=== PATIENT | male | born 1970 | race Caucasian/White ===

== ENCOUNTER 2018-08-20 11:35 | Inpatient (IN) | payer MEDICARE, MEDICAID ==
--- NOTE | 2018-08-20 11:59 | ED Physician Chart ---
ED Chief Complaint/HPI - Patient Information Date Seen:: 08/20/18 Time Seen:: 11:49 Chief Complaint:: anemia History of Present Illness:: this is a 48 yo renal failure, diabetes, with localized weakness sent to this er for an evaluation and treatment after the lab at the senior care reported anemia. Allergies:: Allergies Allergy/AdvReac Type Severity Reaction Status Date / Time haloperidol [From Haldol] Allergy Verified 08/20/18 11:44 lorazepam [From Ativan] Allergy Verified 08/20/18 11:44 Vitals:: Vital Signs - 8 hr 08/20/18 11:45 Temp 98.1 F HR 70 RR 16 BP 136/74 O2 Sat % 94 Historian:: Medical Records Review:: Nurse's Note Reviewed, Transfer documents Reviewed ED Review of Systems - Review of Systems General/Constitutional: No fever, No chills, No weight loss, Weakness, No diaphoresis, No edema, No loss of appetite Skin: No skin lesions, No rash, No bruising Head: No headache, No light-headedness Eyes: No loss of vision, No pain, No diplopia ENT: No earache, No nasal drainage, No sore throat, No tinnitus Neck: No neck pain, No swelling, No thyromegaly, No stiffness, No mass noted Cardio Vascular: No chest pain, No palpitations, No PND, No orthopnea, No edema Pulmonary: SOB, No cough, No sputum, No wheezing GI: Nausea, Vomiting, No diarrhea, No pain, No melena, No hematochezia, No constipation, No hematemesis G/U: No dysuria, No frequency, No hematuria Musculoskeletal: No bone or joint pain, No back pain, No muscle pain Endocrine: No polyuria, No polydipsia Psychiatric: Prior psych history, Depression, No anxiety, No suicidal ideation Hematopoietic: No bruising, No lymphadenopathy Allergic/Immuno: No urticaria, No angioedema Neurological: No syncope, No focal symptoms, No weakness, No paresthesia, No headache, No seizure, No dizziness, No confusion, No vertigo ED Past Medical History - Past Medical History Obtainable: Yes Past Medical History: HTN, DM, CHF, Asthma/COPD, CVA/TIA Family History: None Social History: Smoker, No Alcohol, No Drug Use, Care Facility Surgical History: other (trach placement, placement of access line for dialysis , brain injury surgery. ) Family Medical History - Family Member Mother History Unknown: Yes ED Physical Exam - Physical Examination General/Constitutional: Awake, Well-developed, well-nourished, Alert, No distress, GCS 15, Non-toxic appearing, Ambulatory Head: Atraumatic Other Head comments:: old well healed scars of the head Eyes: Lids, conjuctiva normal, PERRL, EOMI Skin: Nl inspection, No rash, No skin lesions, No ecchymosis, Well hydrated, No lymphadenopathy ENMT: External ears, nose nl, Nasal exam nl, Lips, teeth, gums nl Neck: Nontender, Full ROM w/o pain, No JVD, No nuchal rigidity, No bruit, No mass, No stridor Other Neck comments:: well healed trach placement site Respiratory: Nl effort/Exclusion, Clear to Auscultation, No Wheeze/Rhonchi/Rales Cardio Vascular: RRR, No murmur, gallop, rubs, NL S1 S2 GI: No tenderness/rebounding/guarding, No organomegaly, No hernia, Normal BS's, Nondistended, No mass/bruits, No McBurney tenderness : No CVA tenderness Extremities: No tenderness or effusion, Full ROM, normal strength in all extremities, No edema, Normal digits & nails Other Extremities comments:: there is muscle wasting in all four extremities Neuro/Psych: Alert/oriented, DTR's symmetric, Normal sensory exam, Normal motor strength, Judgement/insight normal, Mood normal, Normal gait, No focal deficits Other Neuro/Psych comments:: partial paralysis of the left upper extremities. Misc: Normal back, No paraspinal tenderness ED Labs/Radiology/EKG Results - Lab Results Results: Abnormal Lab Results 08/20/18 08/20/18 08/20/18 12:00 12:00 12:00 WBC 5.2 RBC 2.35 L Hgb 8.3 L Hct 24.3 L MCV 103.2 H MCH 35.5 H MCHC Differential 34.4 RDW 13.4 Plt Count 300 MPV 7.6 Neutrophils % 72.1 Lymphocytes % 16.3 L Monocytes % 8.1 Eosinophils % 2.1 Basophils % 1.4 PT 10.7 INR 1.03 PTT (Actin FS) 30.2 Sodium Potassium Chloride Carbon Dioxide Anion Gap BUN Creatinine Est GFR ( Amer) Est GFR (Non-Af Amer) BUN/Creatinine Ratio Glucose Whole Bld Lactic Acid Calcium Magnesium 2.4 Total Bilirubin AST ALT Alkaline Phosphatase Ammonia Troponin I B-Natriuretic Peptide Total Protein Albumin Globulin Albumin/Globulin Ratio Triglycerides 96 Cholesterol 115 LDL Cholesterol Direct 53 L HDL Cholesterol 44 08/20/18 08/20/18 08/20/18 12:00 12:00 12:00 WBC RBC Hgb Hct MCV MCH MCHC Differential RDW Plt Count MPV Neutrophils % Lymphocytes % Monocytes % Eosinophils % Basophils % PT INR PTT (Actin FS) Sodium 136 Potassium 3.9 Chloride 93 L Carbon Dioxide 33.2 H Anion Gap 13.7 BUN 38 H Creatinine 4.7 H* Est GFR ( Amer) 17.1 Est GFR (Non-Af Amer) 14.2 BUN/Creatinine Ratio 8.1 Glucose 113 H Whole Bld Lactic Acid Calcium 9.6 Magnesium Total Bilirubin 0.4 AST 10 L ALT 6 L Alkaline Phosphatase 79 Ammonia Troponin I 0.01 B-Natriuretic Peptide > 5000.0 H Total Protein 7.8 Albumin 3.3 L Globulin 4.5 Albumin/Globulin Ratio 0.7 L Triglycerides Cholesterol LDL Cholesterol Direct HDL Cholesterol 08/20/18 08/20/18 12:00 12:38 WBC RBC Hgb Hct MCV MCH MCHC Differential RDW Plt Count MPV Neutrophils % Lymphocytes % Monocytes % Eosinophils % Basophils % PT INR PTT (Actin FS) Sodium Potassium Chloride Carbon Dioxide Anion Gap BUN Creatinine Est GFR ( Amer) Est GFR (Non-Af Amer) BUN/Creatinine Ratio Glucose Whole Bld Lactic Acid 1.11 Calcium Magnesium Total Bilirubin AST ALT Alkaline Phosphatase Ammonia 58 H Troponin I B-Natriuretic Peptide Total Protein Albumin Globulin Albumin/Globulin Ratio Triglycerides Cholesterol LDL Cholesterol Direct HDL Cholesterol - Radiology Results Results: cxr = bilateral pleural effusions cardiomegaly - EKG Interpretations EKG Time:: 11:48 Rate & Rhythm: rate = 70, sinus [place]: axis = right ED Assessment - Assessment General Assessment: bilateral pleural effusion, anemia, renal failure ED Septic Shock - . Is Septic Shock (SBP<90, OR Lactate>4 mmol\L) present?: No - <6hrs of presentation: Vital Signs: Vital Signs - 8 hr 08/20/18 11:45 Temp 98.1 F HR 70 RR 16 BP 136/74 O2 Sat % 94 ED Reassessment (Disposition) - Diagnosis Diagnosis:: acute congestive heart failure renal failure pyschosis diabetes mellitus - Patient Disposition Discharge/Transfer:: Acute Care w/in this hosp Admitted to:: Telemetry Admitting Medical Physician:: Rosalio Jama Condition at Disposition:: Stable
[2018-08-20 12:30] LABS: INR 1.03 (0.5-1.4); PROTHROMBIN TIME (TEST) 10.7 SECONDS (9.5-11.5)
[2018-08-20 12:31] LABS: MAGNESIUM 2.4 mg/dL (1.9-2.7)
[2018-08-20 12:33] LABS: ALB/GLOB RATIO 0.7 (1.0-1.8); ALBUMIN 3.3 gm/dL (4.2-5.5); ANION GAP 13.7 (7.0-16.0); BILIRUBIN,TOTAL 0.4 mg/dL (0.3-1.0); CALCIUM SERUM 9.6 mg/dL (8.6-10.3); CARBON DIOXIDE 33.2 mEq/L (21.0-31.0); GFR AFRICAN-AMERICAN 17.1 ml/min (>90); GFR NON AFRICAN-AMERICAN 14.2 ml/min; POTASSIUM SERUM 3.9 mEq/L (3.5-5.1); TOTAL PROTEIN,SERUM 7.8 gm/dL (6.0-8.3)
[2018-08-20 12:35] LABS: BASOPHILE ABSOLUTE 0.1 Th/cumm (0-0.2); EOSINOPHILE ABSOLUTE 0.1 Th/cmm (0.1-0.4); LYMPHOCYTE ABSOLUTE 0.8 Th/cmm (1.5-3.0)
[2018-08-20 12:42] LABS: % BASOPHILS 1.4 % (0.0-2.0); % EOSINOPHILS 2.1 % (0.0-5.0); % LYMPHOCYTES 16.3 % (20.0-50.0); % MONOCYTES 8.1 % (2.0-10.0); % NEUTROPHILS 72.1 % (40.0-80.0); HEMATOCRIT 24.3 % (41.0-60); HEMOGLOBIN 8.3 gm/dL (12-16); MEAN CELL VOLUME 103.2 fl (80-99); MEAN CORPUSCULAR HEMOGLOBIN 35.5 pg (26.0-30.0); MEAN CORPUSCULAR HGB CONC 34.4 pg (28.0-36.0); MEAN PLATELET VOLUME 7.6 fl; MONOCYTE ABSOLUTE 0.4 Th/cmm (0.3-1.0); NEUTROPHILE ABSOLUTE 3.8 Th/cmm (1.8-8.0); PLATELET COUNT 300 Th/cmm (150-400); RED BLOOD COUNT 2.35 Mil/cmm (4.30-5.70); RED CELL DISTRIBUTION WIDTH 13.4 % (11.5-20.0); WHITE BLOOD COUNT 5.2 Th/cmm (4.8-10.8)
[2018-08-20 12:50] LABS: CREATININE - SERUM 4.7 mg/dL (0.7-1.3)
--- NOTE | 2018-08-20 13:02 | Diagnostic Imaging Report ---
Portable chest x-ray HISTORY: Shortness of breath The heart is enlarged. There is evidence of bilateral pleural effusions (left greater than right). There does appear to be degree upon a vascular redistribution consistent with a degree of congestive heart failure. IMPRESSION: 1. Cardiomegaly with bilateral pleural effusions and findings suggesting a degree of congestive heart failure. Clinical correlation is needed.
--- NOTE | 2018-08-20 16:19 | General Progress Note ---
Subjective - Review of Systems Service Date: 08/20/18 Subjective: Patient altered level Patient complaining of shortness of breath Objective - Results Result Diagrams: 08/20/18 12:00 08/20/18 12:00 Recent Labs: Laboratory Last Values WBC 5.2 Th/cmm (4.8-10.8) 08/20/18 12:00 RBC 2.35 Mil/cmm (4.30-5.70) L 08/20/18 12:00 Hgb 8.3 gm/dL (12-16) L 08/20/18 12:00 Hct 24.3 % (41.0-60) L 08/20/18 12:00 MCV 103.2 fl (80-99) H 08/20/18 12:00 MCH 35.5 pg (26.0-30.0) H 08/20/18 12:00 MCHC Differential 34.4 pg (28.0-36.0) 08/20/18 12:00 RDW 13.4 % (11.5-20.0) 08/20/18 12:00 Plt Count 300 Th/cmm (150-400) 08/20/18 12:00 MPV 7.6 fl 08/20/18 12:00 Neutrophils % 72.1 % (40.0-80.0) 08/20/18 12:00 Lymphocytes % 16.3 % (20.0-50.0) L 08/20/18 12:00 Monocytes % 8.1 % (2.0-10.0) 08/20/18 12:00 Eosinophils % 2.1 % (0.0-5.0) 08/20/18 12:00 Basophils % 1.4 % (0.0-2.0) 08/20/18 12:00 PT 10.7 SECONDS (9.5-11.5) 08/20/18 12:00 INR 1.03 (0.5-1.4) 08/20/18 12:00 PTT (Actin FS) 30.2 SECONDS (26.0-38.0) 08/20/18 12:00 Sodium 136 mEq/L (136-145) 08/20/18 12:00 Potassium 3.9 mEq/L (3.5-5.1) 08/20/18 12:00 Chloride 93 mEq/L (98-107) L 08/20/18 12:00 Carbon Dioxide 33.2 mEq/L (21.0-31.0) H 08/20/18 12:00 Anion Gap 13.7 (7.0-16.0) 08/20/18 12:00 BUN 38 mg/dL (7-25) H 08/20/18 12:00 Creatinine 4.7 mg/dL (0.7-1.3) H* 08/20/18 12:00 Est GFR ( Amer) 17.1 ml/min (>90) 08/20/18 12:00 Est GFR (Non-Af Amer) 14.2 ml/min 08/20/18 12:00 BUN/Creatinine Ratio 8.1 08/20/18 12:00 Glucose 113 mg/dL (70-105) H 08/20/18 12:00 Whole Bld Lactic Acid 1.11 mmol/L (0.60-1.99) 08/20/18 12:38 Calcium 9.6 mg/dL (8.6-10.3) 08/20/18 12:00 Magnesium 2.4 mg/dL (1.9-2.7) 08/20/18 12:00 Total Bilirubin 0.4 mg/dL (0.3-1.0) 08/20/18 12:00 AST 10 U/L (13-39) L 08/20/18 12:00 ALT 6 U/L (7-52) L 08/20/18 12:00 Alkaline Phosphatase 79 U/L (34-104) 08/20/18 12:00 Ammonia 58 umol/L (16-53) H 08/20/18 12:00 Troponin I 0.01 ng/mL (0.01-0.05) 08/20/18 12:00 B-Natriuretic Peptide > 5000.0 pg/mL (5.0-100.0) H 08/20/18 12:00 Total Protein 7.8 gm/dL (6.0-8.3) 08/20/18 12:00 Albumin 3.3 gm/dL (4.2-5.5) L 08/20/18 12:00 Globulin 4.5 gm/dL 08/20/18 12:00 Albumin/Globulin Ratio 0.7 (1.0-1.8) L 08/20/18 12:00 Triglycerides 96 mg/dL (<150) 08/20/18 12:00 Cholesterol 115 mg/dL (<200) 08/20/18 12:00 LDL Cholesterol Direct 53 mg/dL (75-193) L 08/20/18 12:00 HDL Cholesterol 44 mg/dL (23-92) 08/20/18 12:00 Amylase 65 U/L (29-103) 08/20/18 12:00 Lipase 33 U/L (11-82) 08/20/18 12:00 TSH 6.33 uIU/ml (0.34-5.60) H 08/20/18 12:00 - Physical Exam Vitals and I&O: Vital Signs Temp 97.8 F 08/20/18 13:43 Pulse 72 08/20/18 13:43 Resp 23 08/20/18 13:43 BP 148/92 08/20/18 13:43 Pulse Ox 100 08/20/18 13:43 Intake & Output 08/19/18 08/20/18 08/20/18 18:59 06:59 18:59 Intake Total 0 Output Total 0 Balance 0 Weight (lbs) 65.771 kg Intake: Oral 0 Output: Urine 0 Other: Weight Source Patient stated General: Cooperative, No acute distress HEENT: Mucous membr. moist/pink Neck: Supple, JVD (10 cm above sternal angle), +2 carotid pulse wo bruit Cardiovascular: Regular rate, Normal S1, Normal S2, Systolic murmurs, Other (S3) Lungs: Other (bilateral wheezing and rales) Abdomen: Bowel sounds, Soft, Other Extremities: Edema (no organomegaly) Neurological: Strength at 5/5 X4 ext, Cranial nerves 3-12 NL, Reflexes 2+ Assessment/Plan - Problem List Patient Problems: All Active Problems ABNORMAL LABORATORY RESULTS; HB 7.7 (Acute) - Plan Plan: Congestive heart failure diastolic dysfunction and acute I'm deficiency anemia Diabetes mellitus type 2 Diabetic [facility] end-stage renal disease on dialysis BPH Hypertension Hyperlipidemia Schizophrenia Bipolar Anxiety COPD Seizure disorder Plan patient to take dialysis with ultrafiltration with dialysis
[2018-08-20 18:19] VITALS: BP 146/95
[2018-08-20] MEDS ORDERED: LABETALOL HCL 200 MG PO SCH (20:15)
[2018-08-20] MEDS ORDERED: DARBEPOETIN ALFA IN POLYSORBAT 25 MCG IJ SCH (20:15)
[2018-08-20] MEDS ORDERED: Non-Formulary Item 1 EA (Hydralazine Hcl [Hydralazine Hcl] 100 MG) PO SCH (21:00)
[2018-08-20] MEDS: Atorvastatin Calcium 10 MG TAB PO SCH (21:03)
[2018-08-20] MEDS ORDERED: Hydrocodone/APAP 5mg/325mg Tab PO PRN (23:55)
[2018-08-21] MEDS: Hydrocodone/APAP 5mg/325mg Tab PO PRN ×3 (00:29→20:33)
[2018-08-21 01:05] LABS: URINE SOURCE CLEAN C
[2018-08-21 01:06] LABS: URINE BILIRUBIN NEGATIVE (NEGATIVE); URINE BLOOD TRACE (NEGATIVE); URINE GLUCOSE (UA) 100 mg/dL (NEGATIVE); URINE KETONE NEGATIVE (NEGATIVE); URINE LEUKOCYTE ESTERASE MODERATE (NEGATIVE); URINE MICROSCOPIC INDICATED? YES; URINE NITRATE NEGATIVE (NEGATIVE); URINE PH 8.5 (4.6 - 8.0); URINE PROTEIN 100 mg/dL (NEGATIVE); URINE UROBILINOGEN 0.2 E.U./dL (0.2 - 1.0)
[2018-08-21 01:24] LABS: URINE CLARITY HAZY (CLEAR); URINE COLOR YELLOW
[2018-08-21 01:25] LABS: URINE RBC 0-2 /hpf (0-5)
[2018-08-21 01:26] LABS: URINE BACTERIA OCCASIONAL /hpf (NONE SEEN); URINE EPITHELIAL CELLS OCCASIONAL /lpf (FEW)
--- NOTE | 2018-08-21 07:08 | Consultation ---
DATE OF CONSULTATION: 08/20/[address] Jama. HISTORY AND PHYSICAL: This is a 48-year-old male patient who was brought to the hospital complaining of shortness of breath, altered level. In the Emergency Room, the patient was found to have anemia with hemoglobin 8.3 and BNP level over 5000. Hence, the patient is admitted. No history of PND. PAST MEDICAL HISTORY: Congestive heart failure, iron deficiency anemia, diabetes mellitus type 2, diabetic CKD stage 5, end-stage renal disease on dialysis, BPH, hypertension, hyperlipidemia, schizophrenia, bipolar, anxiety, COPD, seizure disorder, history of CVA with late effect. FAMILY HISTORY: Unremarkable. SOCIAL HISTORY: No history of smoking, alcohol abuse at the present time according to the patient. ALLERGIES: No known allergies. PHYSICAL EXAMINATION: VITAL SIGNS: Blood pressure 136/74, pulse 70, respirations 20. HEAD: Normocephalic. No lumps or bumps. EYES: Pupils equal, reactive to light. Fundi show AV nicking, sclerae white, conjunctivae pink. NECK: Carotid 2+. Normal upstroke. JVD 10 cm above the sternal angle. Thyroid not palpable. Lymph nodes not palpable. CHEST: Shows increased AP diameter. No kyphosis, scoliosis. LUNGS: Bilateral rales. Decreased breath sounds in both the bases. HEART: PMI sixth intercostal space with lateral to midclavicular line. S1, S2, S3, S4, soft systolic murmur. ABDOMEN: Soft. Liver and spleen not palpable. Hepatojugular reflux. Positive bowel sounds active. NEUROLOGIC: CVA with late effect. EXTREMITIES: Peripheral pulses feeble. Minimal pedal edema. CLINICAL IMPRESSION: Congestive heart failure, diastolic dysfunction, acute iron deficiency anemia secondary to chronic kidney disease stage 5, diabetes mellitus type 2, diabetic chronic kidney disease stage 5, end-stage renal disease on dialysis, benign prostatic hyperplasia, hypertension, hyperlipidemia, schizophrenia, bipolar, anxiety, chronic obstructive pulmonary disease, seizure disorder, CVA with late effect. PLAN: The patient to have dialysis with ultrafiltration. We will get echocardiogram and monitor the patient on telemetry bed. JOB# [id number]
[2018-08-21 08:07] LABS: IRON LC 40 ug/dL (38-169); TIBC (LC) 227 ug/dL (250-450); UIBC 187 ug/dL (111-343)
[2018-08-21 09:00] LABS: % BASOPHILS 1.4 % (0.0-2.0); % EOSINOPHILS 2.8 % (0.0-5.0); % LYMPHOCYTES 17.3 % (20.0-50.0); % MONOCYTES 8.4 % (2.0-10.0); % NEUTROPHILS 70.1 % (40.0-80.0); BASOPHILE ABSOLUTE 0.1 Th/cumm (0-0.2); EOSINOPHILE ABSOLUTE 0.2 Th/cmm (0.1-0.4); MEAN CELL VOLUME 103.6 fl (80-99); MEAN CORPUSCULAR HEMOGLOBIN 35.4 pg (26.0-30.0); MEAN CORPUSCULAR HGB CONC 34.1 pg (28.0-36.0); MEAN PLATELET VOLUME 7.1 fl; MONOCYTE ABSOLUTE 0.5 Th/cmm (0.3-1.0); NEUTROPHILE ABSOLUTE 3.7 Th/cmm (1.8-8.0); PLATELET COUNT 299 Th/cmm (150-400); RED BLOOD COUNT 2.21 Mil/cmm (4.30-5.70); RED CELL DISTRIBUTION WIDTH 13.5 % (11.5-20.0); WHITE BLOOD COUNT 5.5 Th/cmm (4.8-10.8)
[2018-08-21] MEDS ORDERED: NUT TX IMPAIRED RENAL FXN SOY PO SCH (09:00)
[2018-08-21] MEDS ORDERED: ZIPRASIDONE HCL 80 MG PO SCH (09:00)
[2018-08-21] MEDS ORDERED: Non-Formulary Item 1 EA (Thiamine Hcl [Thiamine Hcl] 100 MG) PO SCH (09:00)
[2018-08-21] MEDS ORDERED: NEPHROVITE PO SCH (09:00)
[2018-08-21 09:02] LABS: HEMATOCRIT 22.9 % (41.0-60); HEMOGLOBIN 7.8 gm/dL (12-16)
[2018-08-21 09:11] LABS: AMYLASE SERUM 137 U/L (29-103); LIPASE 45 U/L (11-82)
[2018-08-21 09:13] LABS: ALB/GLOB RATIO 0.7 (1.0-1.8); ALBUMIN 3.1 gm/dL (4.2-5.5); BILIRUBIN,TOTAL 0.4 mg/dL (0.3-1.0); CALCIUM SERUM 9.6 mg/dL (8.6-10.3); CARBON DIOXIDE 30.9 mEq/L (21.0-31.0); GFR AFRICAN-AMERICAN 13.4 ml/min (>90); GFR NON AFRICAN-AMERICAN 11.1 ml/min; POTASSIUM SERUM 3.9 mEq/L (3.5-5.1); TOTAL PROTEIN,SERUM 7.5 gm/dL (6.0-8.3)
[2018-08-21 09:15] LABS: CREATININE - SERUM 5.8 mg/dL (0.7-1.3)
[2018-08-21] MEDS: Nicotine 21 mg/24 hr Tdm TD SCH (10:00)
[2018-08-21] MEDS: Heparin Sodium 1,000 Units/mL Vial IVP ONE (10:06)
[2018-08-21] MEDS: Vitamin B Complex w/Vitamin C Tab PO SCH (10:08)
--- NOTE | 2018-08-21 10:45 | History & Physical ---
ADMIT DATE: 08/21/2018 CHIEF COMPLAINT: Shortness of breath and altered level of consciousness. HISTORY OF PRESENT ILLNESS: This is a 48-year-old patient who was admitted from a fdc facility, transferred to [facility] [place] due to shortness of breath and increased confusion. From Emergency Room tests were done and found that the patient had elevated BNP on which he missed some dialysis days and has some ongoing fluid overload, so the patient was subsequently admitted to telemetry unit. REVIEW OF SYSTEMS: GENERAL: This is a 48-year-old male who appears as stated. Positive weakness. No fever. HEAD: No headache. No dizziness. EYES: No eye pain, no blurring of vision. NECK: No neck pain or nuchal rigidity. CHEST: No chest pain or palpitation. PULMONARY: No coughing or shortness of breath. GASTROINTESTINAL: No abdominal pain, no constipation or diarrhea. MUSCULOSKELETAL: No joint pain. No muscle pain. SOCIAL HISTORY: The patient lived in a fdc facility prior to hospitalization. FAMILY HISTORY: Unremarkable. PAST SURGICAL HISTORY: Unremarkable. PAST MEDICAL HISTORY: Includes end-stage renal disease, hemodialysis dependent; hypertension, anemia, hyperlipidemia. PHYSICAL EXAMINATION: VITAL SIGNS: Temperature 97.5, heart rate 72, blood pressure 156/95, respirations 18, 95% on room air. GENERAL: This is a 48-year-old male who appears as stated in no acute distress. HEENT: Head is atraumatic, normocephalic. Eyes: Bilateral conjunctivae are clear. Bilateral pupils are equally round and reactive. NECK: Supple. No JVD. CARDIOVASCULAR: S1 and S2, without murmur. PULMONARY: Clear to auscultation. GASTROINTESTINAL: Soft and nontender without guarding. Positive bowel sounds. MUSCULOSKELETAL: No clubbing. No cyanosis noted. ASSESSMENT: 1. Congestive heart failure. 2. End-stage renal disease, hemodialysis dependent. 3. Hypertension. 4. Anemia. PLAN: We will admit the patient to telemetry unit. We will follow up with the certification technician and planer hand to monitor the patient's condition. We are also going to monitor the patient's electrolytes and the patient's intake and output. Treatment plans were discussed with the patient's nurse. Treatment plans were discussed with Dr. Jama. [facility]# [id number]
--- NOTE | 2018-08-21 14:55 | General Progress Note ---
Subjective - Review of Systems Service Date: 08/21/18 Subjective: Patient altered level Patient complaining of shortness of breath Objective - Results Result Diagrams: 08/21/18 08:51 08/21/18 08:51 Recent Labs: Laboratory Last Values WBC 5.5 Th/cmm (4.8-10.8) 08/21/18 08:51 RBC 2.21 Mil/cmm (4.30-5.70) L 08/21/18 08:51 Hgb 7.8 gm/dL (12-16) L* 08/21/18 08:51 Hct 22.9 % (41.0-60) L 08/21/18 08:51 MCV 103.6 fl (80-99) H 08/21/18 08:51 MCH 35.4 pg (26.0-30.0) H 08/21/18 08:51 MCHC Differential 34.1 pg (28.0-36.0) 08/21/18 08:51 RDW 13.5 % (11.5-20.0) 08/21/18 08:51 Plt Count 299 Th/cmm (150-400) 08/21/18 08:51 MPV 7.1 fl 08/21/18 08:51 Neutrophils % 70.1 % (40.0-80.0) 08/21/18 08:51 Lymphocytes % 17.3 % (20.0-50.0) L 08/21/18 08:51 Monocytes % 8.4 % (2.0-10.0) 08/21/18 08:51 Eosinophils % 2.8 % (0.0-5.0) 08/21/18 08:51 Basophils % 1.4 % (0.0-2.0) 08/21/18 08:51 PT 10.7 SECONDS (9.5-11.5) 08/20/18 12:00 INR 1.03 (0.5-1.4) 08/20/18 12:00 PTT (Actin FS) 30.2 SECONDS (26.0-38.0) 08/20/18 12:00 Sodium 138 mEq/L (136-145) 08/21/18 08:51 Potassium 3.9 mEq/L (3.5-5.1) 08/21/18 08:51 Chloride 96 mEq/L (98-107) L 08/21/18 08:51 Carbon Dioxide 30.9 mEq/L (21.0-31.0) 08/21/18 08:51 Anion Gap 15.0 (7.0-16.0) 08/21/18 08:51 BUN 46 mg/dL (7-25) H 08/21/18 08:51 Creatinine 5.8 mg/dL (0.7-1.3) H* 08/21/18 08:51 Est GFR ( Amer) 13.4 ml/min (>90) 08/21/18 08:51 Est GFR (Non-Af Amer) 11.1 ml/min 08/21/18 08:51 BUN/Creatinine Ratio 7.9 08/21/18 08:51 Glucose 80 mg/dL (70-105) 08/21/18 08:51 Whole Bld Lactic Acid 1.11 mmol/L (0.60-1.99) 08/20/18 12:38 Calcium 9.6 mg/dL (8.6-10.3) 08/21/18 08:51 Magnesium 2.4 mg/dL (1.9-2.7) 08/20/18 12:00 Iron 40 ug/dL (38-169) 08/20/18 12:00 TIBC 227 ug/dL (250-450) L 08/20/18 12:00 Iron Saturation 18 % (15-55) 08/20/18 12:00 Unsaturated IBC 187 ug/dL (111-343) 08/20/18 12:00 Total Bilirubin 0.4 mg/dL (0.3-1.0) 08/21/18 08:51 AST 9 U/L (13-39) L 08/21/18 08:51 ALT 6 U/L (7-52) L 08/21/18 08:51 Alkaline Phosphatase 73 U/L (34-104) 08/21/18 08:51 Ammonia 58 umol/L (16-53) H 08/20/18 12:00 Troponin I 0.01 ng/mL (0.01-0.05) 08/20/18 12:00 B-Natriuretic Peptide > 5000.0 pg/mL (5.0-100.0) H 08/21/18 08:51 Total Protein 7.5 gm/dL (6.0-8.3) 08/21/18 08:51 Albumin 3.1 gm/dL (4.2-5.5) L 08/21/18 08:51 Globulin 4.4 gm/dL 08/21/18 08:51 Albumin/Globulin Ratio 0.7 (1.0-1.8) L 08/21/18 08:51 Triglycerides 96 mg/dL (<150) 08/20/18 12:00 Cholesterol 115 mg/dL (<200) 08/20/18 12:00 LDL Cholesterol Direct 53 mg/dL (75-193) L 08/20/18 12:00 HDL Cholesterol 44 mg/dL (23-92) 08/20/18 12:00 Amylase 137 U/L (29-103) H 08/21/18 08:51 Lipase 45 U/L (11-82) 08/21/18 08:51 TSH 2.89 uIU/ml (0.34-5.60) 08/21/18 08:51 Urine Source CLEAN C 08/21/18 00:55 Urine Color YELLOW 08/21/18 00:55 Urine Clarity HAZY (CLEAR) 08/21/18 00:55 Urine pH 8.5 (4.6 - 8.0) 08/21/18 00:55 Ur Specific [place] 1.010 (1.005-1.030) 08/21/18 00:55 Urine Protein 100 mg/dL (NEGATIVE) H 08/21/18 00:55 Urine Glucose (UA) 100 mg/dL (NEGATIVE) H 08/21/18 00:55 Urine Ketones NEGATIVE mg/dL (NEGATIVE) 08/21/18 00:55 Urine Blood TRACE (NEGATIVE) 08/21/18 00:55 Urine Nitrate NEGATIVE (NEGATIVE) 08/21/18 00:55 Urine Bilirubin NEGATIVE (NEGATIVE) 08/21/18 00:55 Urine Urobilinogen 0.2 E.U./dL (0.2 - 1.0) 08/21/18 00:55 Ur Leukocyte Esterase MODERATE (NEGATIVE) H 08/21/18 00:55 Urine RBC 0-2 /hpf (0-5) H 08/21/18 00:55 Urine WBC 6-10 /hpf (0-5) 08/21/18 00:55 Ur Epithelial Cells OCCASIONAL /lpf (FEW) 08/21/18 00:55 Urine Bacteria OCCASIONAL /hpf (NONE SEEN) 08/21/18 00:55 - Physical Exam Vitals and I&O: Vital Signs Temp 97.7 F 08/21/18 11:52 Pulse 74 08/21/18 11:52 Resp 18 08/21/18 11:52 BP 177/112 08/21/18 11:52 Pulse Ox 100 08/21/18 11:52 Intake & Output 08/20/18 08/21/18 08/21/18 18:59 06:59 18:59 Intake Total 200 240 Output Total 0 200 Balance 200 40 Weight (lbs) 61.507 kg 61.235 kg Intake: Oral 200 240 Output: Urine 0 200 Other: # Voids 0 # Bowel Movements 0 Weight Source Bedscale Bedscale Active Medications: Current Medications Acetaminophen/Hydrocodone Bitart ([place] 5mg/325mg) 1 tab PO Q6H PRN PRN Reason: Pain (Moderate) level 4-6 Stop: 10/19/18 20:08 Last Admin: 08/21/18 00:29 Dose: 1 tab Aspirin (Ecotrin) 81 mg PO DAILY [facility] Stop: 10/20/18 08:59 Last Admin: 08/21/18 10:07 Dose: Not Given Atorvastatin Calcium (Lipitor) 10 mg PO HS [facility]; Protocol Stop: 10/19/18 20:59 Last Admin: 08/20/18 21:03 Dose: 10 mg Divalproex Sodium (Depakote Dr) 1,000 mg PO TID [facility]; Protocol Stop: 10/20/18 13:59 Docusate Sodium (Colace) 100 mg PO DAILY [facility] Stop: 10/20/18 08:59 Last Admin: 08/21/18 10:07 Dose: Not Given Folic Acid (Folate) 1 mg PO HS [facility] Stop: 10/19/18 20:59 Last Admin: 08/20/18 21:03 Dose: 1 mg Heparin Sodium (Porcine) (Heparin) 1,000 units IVP UD ONE Stop: 08/22/18 09:01 Last Admin: 08/21/18 10:06 Dose: 1,000 units Hydralazine HCl (Apresoline) 100 mg PO TID [facility] Stop: 10/19/18 20:59 Last Admin: 08/21/18 09:23 Dose: Not Given Labetalol HCl (Trandate) 200 mg PO Q8HR [facility] Stop: 10/19/18 20:59 Last Admin: 08/21/18 04:27 Dose: Not Given Lisinopril (Zestril) 10 mg PO BID [facility] Stop: 10/20/18 08:59 Last Admin: 08/21/18 09:23 Dose: Not Given Miscellaneous (Darbepoetin Pedro In Polysorbat [Aranesp]) 25 mcg IJ QMON [facility] Stop: 10/19/18 20:14 Morphine Sulfate (Morphine) 0.5 mg IVP Q4HR PRN PRN Reason: Pain (Moderate) Stop: 10/20/18 09:58 Nicotine (Nicotine Transdermal System) 21 mg TD DAILY [facility] Stop: 10/20/18 08:59 Last Admin: 08/21/18 10:00 Dose: 21 mg Sevelamer Carbonate (Renvela) 800 mg PO TIDWM [facility] Stop: 10/19/18 20:59 Last Admin: 08/21/18 12:35 Dose: Not Given Thiamine HCl (Vitamin B1) 100 mg PO DAILY [facility] Stop: 10/20/18 08:59 Last Admin: 08/21/18 10:07 Dose: Not Given Trazodone HCl (Desyrel) 50 mg PO HS [facility]; Protocol Stop: 10/20/18 20:59 Trazodone HCl (Desyrel) 50 mg PO HS PRN; Protocol PRN Reason: Insomnia Stop: 10/20/18 10:29 Vitamin B Complex/Vit C/Folic Acid (Vitamin B Complex W/Vitamin C) 1 tab PO DAILY [facility] Stop: 10/20/18 08:59 Last Admin: 08/21/18 10:08 Dose: Not Given Ziprasidone (Geodon) 80 mg PO BID [facility] Stop: 10/20/18 08:59 Last Admin: 08/21/18 10:08 Dose: Not Given General: Cooperative, No acute distress HEENT: Mucous membr. moist/pink Neck: Supple, JVD (10 cm above sternal angle), +2 carotid pulse wo bruit Cardiovascular: Regular rate, Normal S1, Normal S2, Systolic murmurs, Other (S3) Lungs: Other (bilateral wheezing and rales) Abdomen: Bowel sounds, Soft, Other Extremities: Edema (no organomegaly) Neurological: Strength at 5/5 X4 ext, Cranial nerves 3-12 NL, Reflexes 2+ Assessment/Plan - Problem List Patient Problems: All Active Problems ABNORMAL LABORATORY RESULTS; HB 7.7 (Acute) - Plan Plan: Congestive heart failure systolic dysfunction acute Irondeficiency anemia Diabetes mellitus type 2 [facility] end-stage renal disease on dialysis BPH Hypertension Hyperlipidemia Schizophrenia Bipolar Anxiety COPD Seizure disorder Plan patient to take dialysis with ultrafiltration with dialysis Echocardiogram showed cardiomyopathy ejection fraction 32% left ventricular enlargement hypertrophy the left ventricle moderate mitral regurgitation tricuspid regurgitation aortic regurgitation from that regurgitation moderate pulmonary hypertension and large pleural effusion
--- NOTE | 2018-08-21 15:00 | Cardiology ---
08/21/[address] Jama. M-MODE ECHOCARDIOGRAM: Mitral valve, anterior leaflet of mitral valve shows decreased excursion, EF velocity. Posterior leaflet of the mitral valve shows decreased excursion. Left ventricular posterior wall shows increased thickness, decreased excursion. Interventricular septum shows increased thickness, decreased excursion, ejection fraction 32%. Left atrium enlarged 4.2 cm. Aortic root shows normal dimension, normal excursion of aortic leaflets. CONCLUSION: Hypertrophy of the left ventricle, cardiomyopathy, ejection fraction 32%, left atrial enlargement. 2D ECHO: Long axis view shows enlarged left ventricular cavity with decreased ejection fraction, hypertrophy of the left ventricle. Left atrium enlarged. Aortic root shows normal dimension, normal excursion of aortic leaflets. Short axis view of mitral valve normal. Short axis view of aortic valve normal. Apical four chamber view shows enlarged left ventricular cavity with decreased ejection fraction, hypertrophy of the left ventricle. Left atrial enlargement. Right ventricular cavity, right atrium normal, no pericardial effusion. CONCLUSION: Cardiomyopathy, hypertrophy of the left ventricle. Left atrial enlargement, ejection fraction 32%. Doppler study shows moderate mitral regurgitation, moderate tricuspid regurgitation, moderate aortic regurgitation, moderate pulmonary regurgitation. Right ventricular systolic pressure 58 mmHg with some moderate to severe pulmonary hypertension. JOB# [id number]
--- NOTE | 2018-08-21 17:18 | Consultation ---
DATE OF CONSULTATION: 08/20/2018 PATIENT'S AGE: 48 years. SEX: Male. RACE: . HISTORY OF PRESENT ILLNESS: This patient is brought in here, reasons are not very clear. The patient is somewhat maybe disoriented, but he is able to tell that he had been on dialysis for 8 years. The patient had been admitted under the care of Dr. Jama. The patient is little bit mentally disoriented, but he states that he had a stroke before. He has a left-sided stroke. He is able to tell very clearly. He has a right-sided shunt for dialysis. The patient stated that he had multiple collection of the blood in the right side of the head for which the patient was operated at least twice, maybe more times. He is not able to give much more history, but apparently the patient had been on medication for hypertension, which he is on. The patient is also on seizure medication, Depakote, also on Lipitor. The patient is also on darbepoetin ankit that his Aranesp for controlling the anemia. The patient is still anemic. The patient is also on lisinopril 10 mg p.o. b.i.d. and hydralazine and labetalol 200 mg p.o. q. 8 hours. The patient's chemistry is done here reveals hemoglobin of 8.3 grams percent, WBC count of 5.2 and platelet count of 300,000. Also noted was of significance, the patient's BNP was 5000, but that can happen with chronic renal failure, who do not have any kidney function. The patient's other chemistries reveal sodium 136, potassium 3.9, chloride 93, CO2 content 33.3, BUN 38, creatinine 4.7, calcium 9.6, magnesium 2.4, total bilirubin 0.4. Liver enzymes essentially normal. Total protein 7.8, albumin 3.3, triglycerides 96, cholesterol 115. The patient stated that he was dialyzed yesterday, so therefore dialysis would be tomorrow, arrange for dialysis was discussed with Dr. Jama and the patient apparently looks like he goes to [facility] and must be in the group for Dr. Chen and Dr. Watson's group which we would find out unless until there is some other problems would discuss with them and maybe patient would be transferred to their care for the renal point of view. Problems he remains, 1. 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 2. Hypertension. 3. Chronic renal failure, etiology not known. 4. Anemia chronic possibly multifactorial. 5. The patient is being treated for diabetes, but the last glycohemoglobin done reveals glycohemoglobin of 4.3 that is on the [employer] chemistries out here, which says Dr. Watson was the physician who ordered it or whatever happened. We would discuss with Dr. Jama accordingly and things would be ordered. JOB# [id number]
[2018-08-21] MEDS: Atorvastatin Calcium 10 MG TAB PO SCH (20:32)
[2018-08-21] MEDS: Morphine Sulfate 2 mg/mL 1mL Syr IVP PRN (23:31)
[2018-08-22] MEDS: Hydrocodone/APAP 5mg/325mg Tab PO PRN ×2 (02:52→21:10)
[2018-08-22 08:08] LABS: % BASOPHILS 1.4 % (0.0-2.0); % LYMPHOCYTES 20.4 % (20.0-50.0); % MONOCYTES 9.3 % (2.0-10.0); % NEUTROPHILS 65.9 % (40.0-80.0); BASOPHILE ABSOLUTE 0.1 Th/cumm (0-0.2); EOSINOPHILE ABSOLUTE 0.2 Th/cmm (0.1-0.4); MEAN CELL VOLUME 102.9 fl (80-99); MEAN CORPUSCULAR HEMOGLOBIN 34.6 pg (26.0-30.0); MEAN CORPUSCULAR HGB CONC 33.6 pg (28.0-36.0); MEAN PLATELET VOLUME 7.5 fl; MONOCYTE ABSOLUTE 0.5 Th/cmm (0.3-1.0); NEUTROPHILE ABSOLUTE 3.3 Th/cmm (1.8-8.0); PLATELET COUNT 283 Th/cmm (150-400); RED BLOOD COUNT 2.27 Mil/cmm (4.30-5.70); RED CELL DISTRIBUTION WIDTH 13.5 % (11.5-20.0); WHITE BLOOD COUNT 5.1 Th/cmm (4.8-10.8)
[2018-08-22 08:19] LABS: ALB/GLOB RATIO 0.7 (1.0-1.8); ANION GAP 14.5 (7.0-16.0); BILIRUBIN,TOTAL 0.4 mg/dL (0.3-1.0); CALCIUM SERUM 9.4 mg/dL (8.6-10.3); CARBON DIOXIDE 30.6 mEq/L (21.0-31.0); GFR NON AFRICAN-AMERICAN 14.9 ml/min; POTASSIUM SERUM 4.1 mEq/L (3.5-5.1); TOTAL PROTEIN,SERUM 7.2 gm/dL (6.0-8.3)
[2018-08-22 08:28] LABS: HEMOGLOBIN 7.8 gm/dL (12-16)
[2018-08-22 08:29] LABS: HEMATOCRIT 23.4 % (41.0-60)
[2018-08-22 08:30] LABS: CREATININE - SERUM 4.5 mg/dL (0.7-1.3)
[2018-08-22] MEDS: Nicotine 21 mg/24 hr Tdm TD SCH (08:35)
[2018-08-22] MEDS: Morphine Sulfate 2 mg/mL 1mL Syr IVP PRN ×2 (08:36→16:51)
[2018-08-22] MEDS: Vitamin B Complex w/Vitamin C Tab PO SCH (08:37)
[2018-08-22] MEDS: Heparin Sodium 1,000 Units/mL Vial IVP ONE (09:56)
--- NOTE | 2018-08-22 09:58 | Diagnostic Imaging Report ---
Abdominal ultrasound HISTORY: Abnormal liver function The exam is limited due to difficulty in patient positioning. The liver exhibits a normal size. There are 2 sonolucent lesions noted within the liver consistent with cysts. The largest measures 1.2 cm. Small amount of perihepatic fluid is seen. The exam of the gallbladder demonstrates an intraluminal echogenic density measuring 8 mm. Findings consistent with cholelithiasis. Evaluation the gallbladder limited due to difficulty in patient positioning. The common bile duct is slightly generous (7 mm). Pancreas not well seen due to bowel gas. The right kidney could not be seen. The left kidney is poorly defined and exhibits generalized increased echogenicity throughout the cortex. Several subcentimeter sonolucent foci are seen suggesting cystic changes. The spleen is normal in size. No other obvious retroperitoneal or intra-abdominal abnormalities. IMPRESSION: 1. Suboptimal exam due to difficulty in patient positioning 2. Intraluminal echogenic density within the gallbladder suggesting cholelithiasis 3. Nonvisualization right kidney. Per history, this may be congenital. 4. Slightly prominent common bile duct (7 mm) 5. Sonolucent lesions in the liver suggesting cysts 6. Abnormal appearance of the left kidney with parenchymal changes that may reflect chronic cortical disease. 7. Small amount of ascites
--- NOTE | 2018-08-22 10:44 | Internal Medicine Prog Note ---
Internal Medicine Subjective - Subjective Patient seen and examined:: chart reviewed Patient is:: awake Patient Complaints of:: congestion (admitted with sob and confusion , fluid overload after missing dialysis ) Per staff patient has:: no adverse event Internal Medicine Objective - Results Result Diagrams: 08/22/18 07:15 08/22/18 07:15 Recent Labs: Laboratory Last Values WBC 5.1 Th/cmm (4.8-10.8) 08/22/18 07:15 RBC 2.27 Mil/cmm (4.30-5.70) L 08/22/18 07:15 Hgb 7.8 gm/dL (12-16) L* 08/22/18 07:15 Hct 23.4 % (41.0-60) L 08/22/18 07:15 MCV 102.9 fl (80-99) H 08/22/18 07:15 MCH 34.6 pg (26.0-30.0) H 08/22/18 07:15 MCHC Differential 33.6 pg (28.0-36.0) 08/22/18 07:15 RDW 13.5 % (11.5-20.0) 08/22/18 07:15 Plt Count 283 Th/cmm (150-400) 08/22/18 07:15 MPV 7.5 fl 08/22/18 07:15 Neutrophils % 65.9 % (40.0-80.0) 08/22/18 07:15 Lymphocytes % 20.4 % (20.0-50.0) 08/22/18 07:15 Monocytes % 9.3 % (2.0-10.0) 08/22/18 07:15 Eosinophils % 3.0 % (0.0-5.0) 08/22/18 07:15 Basophils % 1.4 % (0.0-2.0) 08/22/18 07:15 PT 10.7 SECONDS (9.5-11.5) 08/20/18 12:00 INR 1.03 (0.5-1.4) 08/20/18 12:00 PTT (Actin FS) 30.2 SECONDS (26.0-38.0) 08/20/18 12:00 Sodium 138 mEq/L (136-145) 08/22/18 07:15 Potassium 4.1 mEq/L (3.5-5.1) 08/22/18 07:15 Chloride 97 mEq/L (98-107) L 08/22/18 07:15 Carbon Dioxide 30.6 mEq/L (21.0-31.0) 08/22/18 07:15 Anion Gap 14.5 (7.0-16.0) 08/22/18 07:15 BUN 27 mg/dL (7-25) H 08/22/18 07:15 Creatinine 4.5 mg/dL (0.7-1.3) H* 08/22/18 07:15 Est GFR ( Amer) 18.0 ml/min (>90) 08/22/18 07:15 Est GFR (Non-Af Amer) 14.9 ml/min 08/22/18 07:15 BUN/Creatinine Ratio 6.0 08/22/18 07:15 Glucose 80 mg/dL (70-105) 08/22/18 07:15 Whole Bld Lactic Acid 1.11 mmol/L (0.60-1.99) 08/20/18 12:38 Calcium 9.4 mg/dL (8.6-10.3) 08/22/18 07:15 Magnesium 2.4 mg/dL (1.9-2.7) 08/20/18 12:00 Iron 40 ug/dL (38-169) 08/20/18 12:00 TIBC 227 ug/dL (250-450) L 08/20/18 12:00 Iron Saturation 18 % (15-55) 08/20/18 12:00 Unsaturated IBC 187 ug/dL (111-343) 08/20/18 12:00 Total Bilirubin 0.4 mg/dL (0.3-1.0) 08/22/18 07:15 AST 10 U/L (13-39) L 08/22/18 07:15 ALT 6 U/L (7-52) L 08/22/18 07:15 Alkaline Phosphatase 70 U/L (34-104) 08/22/18 07:15 Ammonia 58 umol/L (16-53) H 08/20/18 12:00 Troponin I 0.01 ng/mL (0.01-0.05) 08/20/18 12:00 B-Natriuretic Peptide > 5000.0 pg/mL (5.0-100.0) H 08/21/18 08:51 Total Protein 7.2 gm/dL (6.0-8.3) 08/22/18 07:15 Albumin 3.0 gm/dL (4.2-5.5) L 08/22/18 07:15 Globulin 4.2 gm/dL 08/22/18 07:15 Albumin/Globulin Ratio 0.7 (1.0-1.8) L 08/22/18 07:15 Triglycerides 96 mg/dL (<150) 08/20/18 12:00 Cholesterol 115 mg/dL (<200) 08/20/18 12:00 LDL Cholesterol Direct 53 mg/dL (75-193) L 08/20/18 12:00 HDL Cholesterol 44 mg/dL (23-92) 08/20/18 12:00 Amylase 137 U/L (29-103) H 08/21/18 08:51 Lipase 45 U/L (11-82) 08/21/18 08:51 TSH 2.89 uIU/ml (0.34-5.60) 08/21/18 08:51 Urine Source CLEAN C 08/21/18 00:55 Urine Color YELLOW 08/21/18 00:55 Urine Clarity HAZY (CLEAR) 08/21/18 00:55 Urine pH 8.5 (4.6 - 8.0) 08/21/18 00:55 Ur Specific [place] 1.010 (1.005-1.030) 08/21/18 00:55 Urine Protein 100 mg/dL (NEGATIVE) H 08/21/18 00:55 Urine Glucose (UA) 100 mg/dL (NEGATIVE) H 08/21/18 00:55 Urine Ketones NEGATIVE mg/dL (NEGATIVE) 08/21/18 00:55 Urine Blood TRACE (NEGATIVE) 08/21/18 00:55 Urine Nitrate NEGATIVE (NEGATIVE) 08/21/18 00:55 Urine Bilirubin NEGATIVE (NEGATIVE) 08/21/18 00:55 Urine Urobilinogen 0.2 E.U./dL (0.2 - 1.0) 08/21/18 00:55 Ur Leukocyte Esterase MODERATE (NEGATIVE) H 08/21/18 00:55 Urine RBC 0-2 /hpf (0-5) H 08/21/18 00:55 Urine WBC 6-10 /hpf (0-5) 08/21/18 00:55 Ur Epithelial Cells OCCASIONAL /lpf (FEW) 08/21/18 00:55 Urine Bacteria OCCASIONAL /hpf (NONE SEEN) 08/21/18 00:55 - Physical Exam Vitals and I&O: Vital Signs Temp 97.3 F 08/22/18 07:51 Pulse 61 08/22/18 10:11 Resp 18 08/22/18 07:51 BP 126/79 08/22/18 10:11 Pulse Ox 96 08/22/18 07:51 Intake & Output 08/21/18 08/22/18 08/22/18 18:59 06:59 18:59 Intake Total 240 360 Output Total 200 Balance 40 360 Weight (lbs) 61.235 kg 61.235 kg Intake: Oral 240 360 Output: Urine 200 Other: # Voids 2 # Bowel Movements 1 Stool Characteristics Soft Soft Brown Brown Weight Source Bedscale Bedscale Active Medications: Current Medications Acetaminophen/Hydrocodone Bitart ([place] 5mg/325mg) 1 tab PO Q6H PRN PRN Reason: Pain (Moderate) level 4-6 Stop: 10/19/18 20:08 Last Admin: 08/22/18 02:52 Dose: 1 tab Aspirin (Ecotrin) 81 mg PO DAILY [facility] Stop: 10/20/18 08:59 Last Admin: 08/22/18 08:37 Dose: 81 mg Atorvastatin Calcium (Lipitor) 10 mg PO [facility]; Protocol Stop: 10/19/18 20:59 Last Admin: 08/21/18 20:32 Dose: 10 mg Divalproex Sodium (Depakote Dr) 1,000 mg PO TID [facility]; Protocol Stop: 10/20/18 13:59 Last Admin: 08/22/18 08:37 Dose: 1,000 mg Docusate Sodium (Colace) 100 mg PO DAILY [facility] Stop: 10/20/18 08:59 Last Admin: 08/22/18 08:37 Dose: 100 mg Folic Acid (Folate) 1 mg PO [facility] Stop: 10/19/18 20:59 Last Admin: 08/21/18 20:33 Dose: 1 mg Hydralazine HCl (Apresoline) 100 mg PO TID [facility] Stop: 10/19/18 20:59 Last Admin: 08/22/18 10:11 Dose: Not Given Labetalol HCl (Trandate) 200 mg PO Q8HR [facility] Stop: 10/19/18 20:59 Last Admin: 08/22/18 05:33 Dose: 200 mg Lisinopril (Zestril) 10 mg PO BID [facility] Stop: 10/20/18 08:59 Last Admin: 08/22/18 08:37 Dose: 10 mg Miscellaneous (Darbepoetin Pedro In Polysorbat [Aranesp]) 25 mcg IJ QMON [facility] Stop: 10/19/18 20:14 Morphine Sulfate (Morphine) 0.5 mg IVP Q4HR PRN PRN Reason: Pain (Moderate) Stop: 10/20/18 09:58 Last Admin: 08/22/18 08:36 Dose: 0.5 mg Nicotine (Nicotine Transdermal System) 21 mg TD DAILY [facility] Stop: 10/20/18 08:59 Last Admin: 08/22/18 08:35 Dose: 21 mg Sevelamer Carbonate (Renvela) 800 mg PO TIDWM [facility] Stop: 10/19/18 20:59 Last Admin: 08/22/18 08:37 Dose: 800 mg Thiamine HCl (Vitamin B1) 100 mg PO DAILY [facility] Stop: 10/20/18 08:59 Last Admin: 08/22/18 08:37 Dose: 100 mg Trazodone HCl (Desyrel) 50 mg PO HS [facility]; Protocol Stop: 10/20/18 20:59 Last Admin: 08/21/18 20:33 Dose: 50 mg Trazodone HCl (Desyrel) 50 mg PO HS PRN; Protocol PRN Reason: Insomnia Stop: 10/20/18 10:29 Vitamin B Complex/Vit C/Folic Acid (Vitamin B Complex W/Vitamin C) 1 tab PO DAILY [facility] Stop: 10/20/18 08:59 Last Admin: 08/22/18 08:37 Dose: 1 tab Ziprasidone (Geodon) 80 mg PO BID [facility] Stop: 10/20/18 08:59 Last Admin: 08/22/18 10:25 Dose: 80 mg General: weak, alert, other (confused) HEENT: NC/AT Neck: Supple Lungs: CTAB Cardiovascular: RRR Abdomen: soft, non-tender Extremities: clear Neurological: no change Internal Medicine Assmt/Plan - Assessment Assessment: chf esrd/hd htn anemia - Plan Plan: nephro monitor vitals diet labs
--- NOTE | 2018-08-22 13:21 | General Progress Note ---
Subjective - Review of Systems Service Date: 08/22/18 Subjective: Patient more awake Patient complaining of shortness of breath Objective - Results Result Diagrams: 08/22/18 07:15 08/22/18 07:15 Recent Labs: Laboratory Last Values WBC 5.1 Th/cmm (4.8-10.8) 08/22/18 07:15 RBC 2.27 Mil/cmm (4.30-5.70) L 08/22/18 07:15 Hgb 7.8 gm/dL (12-16) L* 08/22/18 07:15 Hct 23.4 % (41.0-60) L 08/22/18 07:15 MCV 102.9 fl (80-99) H 08/22/18 07:15 MCH 34.6 pg (26.0-30.0) H 08/22/18 07:15 MCHC Differential 33.6 pg (28.0-36.0) 08/22/18 07:15 RDW 13.5 % (11.5-20.0) 08/22/18 07:15 Plt Count 283 Th/cmm (150-400) 08/22/18 07:15 MPV 7.5 fl 08/22/18 07:15 Neutrophils % 65.9 % (40.0-80.0) 08/22/18 07:15 Lymphocytes % 20.4 % (20.0-50.0) 08/22/18 07:15 Monocytes % 9.3 % (2.0-10.0) 08/22/18 07:15 Eosinophils % 3.0 % (0.0-5.0) 08/22/18 07:15 Basophils % 1.4 % (0.0-2.0) 08/22/18 07:15 PT 10.7 SECONDS (9.5-11.5) 08/20/18 12:00 INR 1.03 (0.5-1.4) 08/20/18 12:00 PTT (Actin FS) 30.2 SECONDS (26.0-38.0) 08/20/18 12:00 Sodium 138 mEq/L (136-145) 08/22/18 07:15 Potassium 4.1 mEq/L (3.5-5.1) 08/22/18 07:15 Chloride 97 mEq/L (98-107) L 08/22/18 07:15 Carbon Dioxide 30.6 mEq/L (21.0-31.0) 08/22/18 07:15 Anion Gap 14.5 (7.0-16.0) 08/22/18 07:15 BUN 27 mg/dL (7-25) H 08/22/18 07:15 Creatinine 4.5 mg/dL (0.7-1.3) H* 08/22/18 07:15 Est GFR ( Amer) 18.0 ml/min (>90) 08/22/18 07:15 Est GFR (Non-Af Amer) 14.9 ml/min 08/22/18 07:15 BUN/Creatinine Ratio 6.0 08/22/18 07:15 Glucose 80 mg/dL (70-105) 08/22/18 07:15 Whole Bld Lactic Acid 1.11 mmol/L (0.60-1.99) 08/20/18 12:38 Calcium 9.4 mg/dL (8.6-10.3) 08/22/18 07:15 Magnesium 2.4 mg/dL (1.9-2.7) 08/20/18 12:00 Iron 40 ug/dL (38-169) 08/20/18 12:00 TIBC 227 ug/dL (250-450) L 08/20/18 12:00 Iron Saturation 18 % (15-55) 08/20/18 12:00 Unsaturated IBC 187 ug/dL (111-343) 08/20/18 12:00 Total Bilirubin 0.4 mg/dL (0.3-1.0) 08/22/18 07:15 AST 10 U/L (13-39) L 08/22/18 07:15 ALT 6 U/L (7-52) L 08/22/18 07:15 Alkaline Phosphatase 70 U/L (34-104) 08/22/18 07:15 Ammonia 58 umol/L (16-53) H 08/20/18 12:00 Troponin I 0.01 ng/mL (0.01-0.05) 08/20/18 12:00 B-Natriuretic Peptide > 5000.0 pg/mL (5.0-100.0) H 08/21/18 08:51 Total Protein 7.2 gm/dL (6.0-8.3) 08/22/18 07:15 Albumin 3.0 gm/dL (4.2-5.5) L 08/22/18 07:15 Globulin 4.2 gm/dL 08/22/18 07:15 Albumin/Globulin Ratio 0.7 (1.0-1.8) L 08/22/18 07:15 Triglycerides 96 mg/dL (<150) 08/20/18 12:00 Cholesterol 115 mg/dL (<200) 08/20/18 12:00 LDL Cholesterol Direct 53 mg/dL (75-193) L 08/20/18 12:00 HDL Cholesterol 44 mg/dL (23-92) 08/20/18 12:00 Amylase 137 U/L (29-103) H 08/21/18 08:51 Lipase 45 U/L (11-82) 08/21/18 08:51 TSH 2.89 uIU/ml (0.34-5.60) 08/21/18 08:51 Urine Source CLEAN C 08/21/18 00:55 Urine Color YELLOW 08/21/18 00:55 Urine Clarity HAZY (CLEAR) 08/21/18 00:55 Urine pH 8.5 (4.6 - 8.0) 08/21/18 00:55 Ur Specific [place] 1.010 (1.005-1.030) 08/21/18 00:55 Urine Protein 100 mg/dL (NEGATIVE) H 08/21/18 00:55 Urine Glucose (UA) 100 mg/dL (NEGATIVE) H 08/21/18 00:55 Urine Ketones NEGATIVE mg/dL (NEGATIVE) 08/21/18 00:55 Urine Blood TRACE (NEGATIVE) 08/21/18 00:55 Urine Nitrate NEGATIVE (NEGATIVE) 08/21/18 00:55 Urine Bilirubin NEGATIVE (NEGATIVE) 08/21/18 00:55 Urine Urobilinogen 0.2 E.U./dL (0.2 - 1.0) 08/21/18 00:55 Ur Leukocyte Esterase MODERATE (NEGATIVE) H 08/21/18 00:55 Urine RBC 0-2 /hpf (0-5) H 08/21/18 00:55 Urine WBC 6-10 /hpf (0-5) 08/21/18 00:55 Ur Epithelial Cells OCCASIONAL /lpf (FEW) 08/21/18 00:55 Urine Bacteria OCCASIONAL /hpf (NONE SEEN) 08/21/18 00:55 - Physical Exam Vitals and I&O: Vital Signs Temp 97.8 F 08/22/18 12:00 Pulse 67 08/22/18 12:32 Resp 18 08/22/18 12:00 BP 138/91 08/22/18 12:32 Pulse Ox 100 08/22/18 12:00 Intake & Output 08/21/18 08/22/18 08/22/18 18:59 06:59 18:59 Intake Total 240 360 Output Total 200 Balance 40 360 Weight (lbs) 61.235 kg 61.235 kg Intake: Oral 240 360 Output: Urine 200 Other: # Voids 2 # Bowel Movements 1 Stool Characteristics Soft Soft Soft Brown Brown Brown Weight Source Bedscale Bedscale Active Medications: Current Medications Acetaminophen/Hydrocodone Bitart ([place] 5mg/325mg) 1 tab PO Q6H PRN PRN Reason: Pain (Moderate) level 4-6 Stop: 10/19/18 20:08 Last Admin: 08/22/18 02:52 Dose: 1 tab Aspirin (Ecotrin) 81 mg PO DAILY [facility] Stop: 10/20/18 08:59 Last Admin: 08/22/18 08:37 Dose: 81 mg Atorvastatin Calcium (Lipitor) 10 mg PO HS [facility]; Protocol Stop: 10/19/18 20:59 Last Admin: 08/21/18 20:32 Dose: 10 mg Divalproex Sodium (Depakote Dr) 1,000 mg PO TID [facility]; Protocol Stop: 10/20/18 13:59 Last Admin: 08/22/18 08:37 Dose: 1,000 mg Docusate Sodium (Colace) 100 mg PO DAILY [facility] Stop: 10/20/18 08:59 Last Admin: 08/22/18 08:37 Dose: 100 mg Folic Acid (Folate) 1 mg PO HS [facility] Stop: 10/19/18 20:59 Last Admin: 08/21/18 20:33 Dose: 1 mg Hydralazine HCl (Apresoline) 100 mg PO TID [facility] Stop: 10/19/18 20:59 Last Admin: 08/22/18 10:11 Dose: Not Given Labetalol HCl (Trandate) 200 mg PO Q8HR [facility] Stop: 10/19/18 20:59 Last Admin: 04/28/19 12:32 Dose: 200 mg Lisinopril (Zestril) 10 mg PO BID [facility] Stop: 10/20/18 08:59 Last Admin: 08/22/18 08:37 Dose: 10 mg Miscellaneous (Darbepoetin Pedro In Polysorbat [Aranesp]) 25 mcg IJ QMON [facility] Stop: 10/19/18 20:14 Morphine Sulfate (Morphine) 0.5 mg IVP Q4HR PRN PRN Reason: Pain (Moderate) Stop: 10/20/18 09:58 Last Admin: 08/22/18 08:36 Dose: 0.5 mg Nicotine (Nicotine Transdermal System) 21 mg TD DAILY [facility] Stop: 10/20/18 08:59 Last Admin: 08/22/18 08:35 Dose: 21 mg Sevelamer Carbonate (Renvela) 800 mg PO TIDWM [facility] Stop: 10/19/18 20:59 Last Admin: 08/22/18 12:32 Dose: 800 mg Thiamine HCl (Vitamin B1) 100 mg PO DAILY [facility] Stop: 10/20/18 08:59 Last Admin: 08/22/18 08:37 Dose: 100 mg Trazodone HCl (Desyrel) 50 mg PO HS [facility]; Protocol Stop: 10/20/18 20:59 Last Admin: 08/21/18 20:33 Dose: 50 mg Trazodone HCl (Desyrel) 50 mg PO HS PRN; Protocol PRN Reason: Insomnia Stop: 10/20/18 10:29 Vitamin B Complex/Vit C/Folic Acid (Vitamin B Complex W/Vitamin C) 1 tab PO DAILY [facility] Stop: 10/20/18 08:59 Last Admin: 08/22/18 08:37 Dose: 1 tab Ziprasidone (Geodon) 80 mg PO BID [facility] Stop: 10/20/18 08:59 Last Admin: 08/22/18 10:25 Dose: 80 mg General: Cooperative, No acute distress HEENT: Mucous membr. moist/pink Neck: Supple, JVD (10 cm above sternal angle), +2 carotid pulse wo bruit Cardiovascular: Regular rate, Normal S1, Normal S2, Systolic murmurs, Other (S3) Lungs: Other (bilateral wheezing and rales) Abdomen: Bowel sounds, Soft, Other Extremities: Edema (no organomegaly) Neurological: Strength at 5/5 X4 ext, Cranial nerves 3-12 NL, Reflexes 2+ Assessment/Plan - Problem List Patient Problems: All Active Problems ABNORMAL LABORATORY RESULTS; HB 7.7 (Acute) - Plan Plan: Congestive heart failure systolic dysfunction acute Irondeficiency anemia Diabetes mellitus type 2 Diabetic [facility] Thursday end-stage renal disease on dialysis BPH Hypertension Hyperlipidemia Schizophrenia Bipolar Anxiety COPD Seizure disorder Plan patient to take dialysis with ultrafiltration with dialysis Echocardiogram showed cardiomyopathy ejection fraction 32% left ventricular enlargement hypertrophy the left ventricle moderate mitral regurgitation tricuspid regurgitation aortic regurgitation from that regurgitation moderate pulmonary hypertension and large pleural effusion
[2018-08-22] MEDS: Atorvastatin Calcium 10 MG TAB PO SCH (21:17)
[2018-08-23] MEDS: Morphine Sulfate 2 mg/mL 1mL Syr IVP PRN (00:51)
[2018-08-23] MEDS: Hydrocodone/APAP 5mg/325mg Tab PO PRN (04:43)
[2018-08-23 06:38] LABS: % BASOPHILS 1.7 % (0.0-2.0); % EOSINOPHILS 3.5 % (0.0-5.0); % LYMPHOCYTES 19.6 % (20.0-50.0); % NEUTROPHILS 65.2 % (40.0-80.0); BASOPHILE ABSOLUTE 0.1 Th/cumm (0-0.2); EOSINOPHILE ABSOLUTE 0.2 Th/cmm (0.1-0.4); LYMPHOCYTE ABSOLUTE 0.9 Th/cmm (1.5-3.0); MEAN CELL VOLUME 104.7 fl (80-99); MEAN CORPUSCULAR HGB CONC 33.4 pg (28.0-36.0); MEAN PLATELET VOLUME 7.3 fl; MONOCYTE ABSOLUTE 0.4 Th/cmm (0.3-1.0); NEUTROPHILE ABSOLUTE 2.8 Th/cmm (1.8-8.0); PLATELET COUNT 234 Th/cmm (150-400); RED BLOOD COUNT 2.11 Mil/cmm (4.30-5.70); RED CELL DISTRIBUTION WIDTH 13.2 % (11.5-20.0)
[2018-08-23 07:02] LABS: ANION GAP 15.4 (7.0-16.0); CALCIUM SERUM 9.1 mg/dL (8.6-10.3); CARBON DIOXIDE 29.2 mEq/L (21.0-31.0); GFR AFRICAN-AMERICAN 12.9 ml/min (>90); GFR NON AFRICAN-AMERICAN 10.7 ml/min; HEMATOCRIT 22.1 % (41.0-60); POTASSIUM SERUM 4.6 mEq/L (3.5-5.1)
[2018-08-23 07:04] LABS: WHITE BLOOD COUNT 4.4 Th/cmm (4.8-10.8)
[2018-08-23 07:06] LABS: HEMOGLOBIN 7.4 gm/dL (12-16)
[2018-08-23] MEDS: Vitamin B Complex w/Vitamin C Tab PO SCH (09:35)
[2018-08-23] MEDS: Nicotine 21 mg/24 hr Tdm TD SCH (09:47)
--- NOTE | 2018-08-23 10:26 | Internal Medicine Prog Note ---
Internal Medicine Subjective - Subjective Service Date: 08/23/18 Patient seen and examined:: with staff, chart reviewed Patient is:: awake, congested Patient Complaints of:: congestion (admitted with sob and confusion , fluid overload after missing dialysis ), SOB Per staff patient has:: no adverse event, no episodes of fall Internal Medicine Objective - Results Result Diagrams: 08/23/18 05:45 08/23/18 05:45 Recent Labs: Laboratory Last Values WBC 4.4 Th/cmm (4.8-10.8) L 08/23/18 05:45 RBC 2.11 Mil/cmm (4.30-5.70) L 08/23/18 05:45 Hgb 7.4 gm/dL (12-16) L* 08/23/18 05:45 Hct 22.1 % (41.0-60) L 08/23/18 05:45 MCV 104.7 fl (80-99) H 08/23/18 05:45 MCH 35.0 pg (26.0-30.0) H 08/23/18 05:45 MCHC Differential 33.4 pg (28.0-36.0) 08/23/18 05:45 RDW 13.2 % (11.5-20.0) 08/23/18 05:45 Plt Count 234 Th/cmm (150-400) 08/23/18 05:45 MPV 7.3 fl 08/23/18 05:45 Neutrophils % 65.2 % (40.0-80.0) 08/23/18 05:45 Lymphocytes % 19.6 % (20.0-50.0) L 08/23/18 05:45 Monocytes % 10.0 % (2.0-10.0) 08/23/18 05:45 Eosinophils % 3.5 % (0.0-5.0) 08/23/18 05:45 Basophils % 1.7 % (0.0-2.0) 08/23/18 05:45 PT 10.7 SECONDS (9.5-11.5) 08/20/18 12:00 INR 1.03 (0.5-1.4) 08/20/18 12:00 PTT (Actin FS) 30.2 SECONDS (26.0-38.0) 08/20/18 12:00 Sodium 135 mEq/L (136-145) L 08/23/18 05:45 Potassium 4.6 mEq/L (3.5-5.1) 08/23/18 05:45 Chloride 95 mEq/L (98-107) L 08/23/18 05:45 Carbon Dioxide 29.2 mEq/L (21.0-31.0) 08/23/18 05:45 Anion Gap 15.4 (7.0-16.0) 08/23/18 05:45 BUN 40 mg/dL (7-25) H 08/23/18 05:45 Creatinine 6.0 mg/dL (0.7-1.3) H* 08/23/18 05:45 Est GFR ( Amer) 12.9 ml/min (>90) 08/23/18 05:45 Est GFR (Non-Af Amer) 10.7 ml/min 08/23/18 05:45 BUN/Creatinine Ratio 6.7 08/23/18 05:45 Glucose 82 mg/dL (70-105) 08/23/18 05:45 Whole Bld Lactic Acid 1.11 mmol/L (0.60-1.99) 08/20/18 12:38 Calcium 9.1 mg/dL (8.6-10.3) 08/23/18 05:45 Magnesium 2.4 mg/dL (1.9-2.7) 08/20/18 12:00 Iron 40 ug/dL (38-169) 08/20/18 12:00 TIBC 227 ug/dL (250-450) L 08/20/18 12:00 Iron Saturation 18 % (15-55) 08/20/18 12:00 Unsaturated IBC 187 ug/dL (111-343) 08/20/18 12:00 Total Bilirubin 0.4 mg/dL (0.3-1.0) 08/22/18 07:15 AST 10 U/L (13-39) L 08/22/18 07:15 ALT 6 U/L (7-52) L 08/22/18 07:15 Alkaline Phosphatase 70 U/L (34-104) 08/22/18 07:15 Ammonia 58 umol/L (16-53) H 08/20/18 12:00 Troponin I 0.01 ng/mL (0.01-0.05) 08/20/18 12:00 B-Natriuretic Peptide > 5000.0 pg/mL (5.0-100.0) H 08/21/18 08:51 Total Protein 7.2 gm/dL (6.0-8.3) 08/22/18 07:15 Albumin 3.0 gm/dL (4.2-5.5) L 08/22/18 07:15 Globulin 4.2 gm/dL 08/22/18 07:15 Albumin/Globulin Ratio 0.7 (1.0-1.8) L 08/22/18 07:15 Triglycerides 96 mg/dL (<150) 08/20/18 12:00 Cholesterol 115 mg/dL (<200) 08/20/18 12:00 LDL Cholesterol Direct 53 mg/dL (75-193) L 08/20/18 12:00 HDL Cholesterol 44 mg/dL (23-92) 08/20/18 12:00 Amylase 137 U/L (29-103) H 08/21/18 08:51 Lipase 45 U/L (11-82) 08/21/18 08:51 TSH 2.89 uIU/ml (0.34-5.60) 08/21/18 08:51 Urine Source CLEAN C 08/21/18 00:55 Urine Color YELLOW 08/21/18 00:55 Urine Clarity HAZY (CLEAR) 08/21/18 00:55 Urine pH 8.5 (4.6 - 8.0) 08/21/18 00:55 Ur Specific [place] 1.010 (1.005-1.030) 08/21/18 00:55 Urine Protein 100 mg/dL (NEGATIVE) H 08/21/18 00:55 Urine Glucose (UA) 100 mg/dL (NEGATIVE) H 08/21/18 00:55 Urine Ketones NEGATIVE mg/dL (NEGATIVE) 08/21/18 00:55 Urine Blood TRACE (NEGATIVE) 08/21/18 00:55 Urine Nitrate NEGATIVE (NEGATIVE) 08/21/18 00:55 Urine Bilirubin NEGATIVE (NEGATIVE) 08/21/18 00:55 Urine Urobilinogen 0.2 E.U./dL (0.2 - 1.0) 08/21/18 00:55 Ur Leukocyte Esterase MODERATE (NEGATIVE) H 08/21/18 00:55 Urine RBC 0-2 /hpf (0-5) H 08/21/18 00:55 Urine WBC 6-10 /hpf (0-5) 08/21/18 00:55 Ur Epithelial Cells OCCASIONAL /lpf (FEW) 08/21/18 00:55 Urine Bacteria OCCASIONAL /hpf (NONE SEEN) 08/21/18 00:55 - Physical Exam Vitals and I&O: Vital Signs Temp 97.1 F 08/23/18 07:56 Pulse 76 08/23/18 09:36 Resp 19 08/23/18 07:56 BP 130/75 08/23/18 09:36 Pulse Ox 97 08/23/18 07:56 Intake & Output 08/22/18 08/23/18 08/23/18 18:59 06:59 18:59 Intake Total 500 600 Balance 500 600 Weight (lbs) 61.235 kg 61.235 kg Intake: Oral 500 600 Other: # Voids 2 400 # Bowel Movements 0 0 Stool Characteristics Soft Soft Brown Brown Weight Source Bedscale Bedscale Active Medications: Current Medications Acetaminophen/Hydrocodone Bitart ([place] 5mg/325mg) 1 tab PO Q6H PRN PRN Reason: Pain (Moderate) level 4-6 Stop: 10/19/18 20:08 Last Admin: 08/23/18 04:43 Dose: 1 tab Aspirin (Ecotrin) 81 mg PO DAILY [facility] Stop: 10/20/18 08:59 Last Admin: 08/23/18 09:36 Dose: Not Given Atorvastatin Calcium (Lipitor) 10 mg PO HS [facility]; Protocol Stop: 10/19/18 20:59 Last Admin: 08/22/18 21:17 Dose: 10 mg Diphenhydramine HCl (Benadryl) 50 mg PO TID PRN PRN Reason: Itching Stop: 10/22/18 09:50 Divalproex Sodium (Depakote Dr) 1,000 mg PO TID [facility]; Protocol Stop: 10/20/18 13:59 Last Admin: 08/23/18 09:36 Dose: Not Given Docusate Sodium (Colace) 100 mg PO DAILY [facility] Stop: 10/20/18 08:59 Last Admin: 08/23/18 09:36 Dose: Not Given Folic Acid (Folate) 1 mg PO [facility] Stop: 10/19/18 20:59 Last Admin: 08/22/18 21:21 Dose: 1 mg Hydralazine HCl (Apresoline) 100 mg PO TID [facility] Stop: 10/19/18 20:59 Last Admin: 08/23/18 09:36 Dose: Not Given Labetalol HCl (Trandate) 200 mg PO Q8HR [facility] Stop: 10/19/18 20:59 Last Admin: 08/23/18 04:18 Dose: Not Given Lisinopril (Zestril) 10 mg PO BID [facility] Stop: 10/20/18 08:59 Last Admin: 08/23/18 09:35 Dose: Not Given Miscellaneous (Darbepoetin Pedro In Polysorbat [Aranesp]) 25 mcg IJ QMON [facility] Stop: 10/19/18 20:14 Morphine Sulfate (Morphine) 0.5 mg IVP Q4HR PRN PRN Reason: Pain (Moderate) Stop: 10/20/18 09:58 Last Admin: 08/23/18 00:51 Dose: 0.5 mg Nicotine (Nicotine Transdermal System) 21 mg TD DAILY [facility] Stop: 10/20/18 08:59 Last Admin: 08/23/18 09:47 Dose: 21 mg Sevelamer Carbonate (Renvela) 800 mg PO TIDWM [facility] Stop: 10/19/18 20:59 Last Admin: 08/23/18 09:36 Dose: Not Given Thiamine HCl (Vitamin B1) 100 mg PO DAILY [facility] Stop: 10/20/18 08:59 Last Admin: 08/23/18 09:35 Dose: Not Given Trazodone HCl (Desyrel) 50 mg PO HS [facility]; Protocol Stop: 10/20/18 20:59 Last Admin: 08/22/18 21:17 Dose: 50 mg Trazodone HCl (Desyrel) 50 mg PO HS PRN; Protocol PRN Reason: Insomnia Stop: 10/20/18 10:29 Vitamin B Complex/Vit C/Folic Acid (Vitamin B Complex W/Vitamin C) 1 tab PO DAILY [facility] Stop: 10/20/18 08:59 Last Admin: 08/23/18 09:35 Dose: Not Given Ziprasidone (Geodon) 80 mg PO BID [facility] Stop: 10/20/18 08:59 Last Admin: 08/23/18 09:35 Dose: Not Given Physical Exam: Ptient has been c/o sob and is congested. General: weak, alert, other (confused) HEENT: NC/AT Neck: Supple Lungs: CTAB Cardiovascular: RRR Abdomen: soft, non-tender Extremities: clear Neurological: no change Internal Medicine Assmt/Plan - Assessment Assessment: chf bph diabetes mellitus bipolar anxiety copd seizure diosrder schizophrenia esrd/hd htn anemia - Plan Plan: continuation of care continue present meds as directed pain management followup with [employer] monitor vitals diet and labs fall precaution continue present care management Nutritional Asmnt/Malnutr-PDOC - Dietary Evaluation Malnutrition Findings (Please click <Entered> for more info): see orders
--- NOTE | 2018-08-23 12:06 | General Progress Note ---
Subjective - Review of Systems Service Date: 08/23/18 Subjective: Patient more awake Patient complaining of shortness of breath Objective - Results Result Diagrams: 08/23/18 05:45 08/23/18 05:45 Recent Labs: Laboratory Last Values WBC 4.4 Th/cmm (4.8-10.8) L 08/23/18 05:45 RBC 2.11 Mil/cmm (4.30-5.70) L 08/23/18 05:45 Hgb 7.4 gm/dL (12-16) L* 08/23/18 05:45 Hct 22.1 % (41.0-60) L 08/23/18 05:45 MCV 104.7 fl (80-99) H 08/23/18 05:45 MCH 35.0 pg (26.0-30.0) H 08/23/18 05:45 MCHC Differential 33.4 pg (28.0-36.0) 08/23/18 05:45 RDW 13.2 % (11.5-20.0) 08/23/18 05:45 Plt Count 234 Th/cmm (150-400) 08/23/18 05:45 MPV 7.3 fl 08/23/18 05:45 Neutrophils % 65.2 % (40.0-80.0) 08/23/18 05:45 Lymphocytes % 19.6 % (20.0-50.0) L 08/23/18 05:45 Monocytes % 10.0 % (2.0-10.0) 08/23/18 05:45 Eosinophils % 3.5 % (0.0-5.0) 08/23/18 05:45 Basophils % 1.7 % (0.0-2.0) 08/23/18 05:45 PT 10.7 SECONDS (9.5-11.5) 08/20/18 12:00 INR 1.03 (0.5-1.4) 08/20/18 12:00 PTT (Actin FS) 30.2 SECONDS (26.0-38.0) 08/20/18 12:00 Sodium 135 mEq/L (136-145) L 08/23/18 05:45 Potassium 4.6 mEq/L (3.5-5.1) 08/23/18 05:45 Chloride 95 mEq/L (98-107) L 08/23/18 05:45 Carbon Dioxide 29.2 mEq/L (21.0-31.0) 08/23/18 05:45 Anion Gap 15.4 (7.0-16.0) 08/23/18 05:45 BUN 40 mg/dL (7-25) H 08/23/18 05:45 Creatinine 6.0 mg/dL (0.7-1.3) H* 08/23/18 05:45 Est GFR ( Amer) 12.9 ml/min (>90) 08/23/18 05:45 Est GFR (Non-Af Amer) 10.7 ml/min 08/23/18 05:45 BUN/Creatinine Ratio 6.7 08/23/18 05:45 Glucose 82 mg/dL (70-105) 08/23/18 05:45 Whole Bld Lactic Acid 1.11 mmol/L (0.60-1.99) 08/20/18 12:38 Calcium 9.1 mg/dL (8.6-10.3) 08/23/18 05:45 Magnesium 2.4 mg/dL (1.9-2.7) 08/20/18 12:00 Iron 40 ug/dL (38-169) 08/20/18 12:00 TIBC 227 ug/dL (250-450) L 08/20/18 12:00 Iron Saturation 18 % (15-55) 08/20/18 12:00 Unsaturated IBC 187 ug/dL (111-343) 08/20/18 12:00 Total Bilirubin 0.4 mg/dL (0.3-1.0) 08/22/18 07:15 AST 10 U/L (13-39) L 08/22/18 07:15 ALT 6 U/L (7-52) L 08/22/18 07:15 Alkaline Phosphatase 70 U/L (34-104) 08/22/18 07:15 Ammonia 58 umol/L (16-53) H 08/20/18 12:00 Troponin I 0.01 ng/mL (0.01-0.05) 08/20/18 12:00 B-Natriuretic Peptide > 5000.0 pg/mL (5.0-100.0) H 08/21/18 08:51 Total Protein 7.2 gm/dL (6.0-8.3) 08/22/18 07:15 Albumin 3.0 gm/dL (4.2-5.5) L 08/22/18 07:15 Globulin 4.2 gm/dL 08/22/18 07:15 Albumin/Globulin Ratio 0.7 (1.0-1.8) L 08/22/18 07:15 Triglycerides 96 mg/dL (<150) 08/20/18 12:00 Cholesterol 115 mg/dL (<200) 08/20/18 12:00 LDL Cholesterol Direct 53 mg/dL (75-193) L 08/20/18 12:00 HDL Cholesterol 44 mg/dL (23-92) 08/20/18 12:00 Amylase 137 U/L (29-103) H 08/21/18 08:51 Lipase 45 U/L (11-82) 08/21/18 08:51 TSH 2.89 uIU/ml (0.34-5.60) 08/21/18 08:51 Urine Source CLEAN C 08/21/18 00:55 Urine Color YELLOW 08/21/18 00:55 Urine Clarity HAZY (CLEAR) 08/21/18 00:55 Urine pH 8.5 (4.6 - 8.0) 08/21/18 00:55 Ur Specific [place] 1.010 (1.005-1.030) 08/21/18 00:55 Urine Protein 100 mg/dL (NEGATIVE) H 08/21/18 00:55 Urine Glucose (UA) 100 mg/dL (NEGATIVE) H 08/21/18 00:55 Urine Ketones NEGATIVE mg/dL (NEGATIVE) 08/21/18 00:55 Urine Blood TRACE (NEGATIVE) 08/21/18 00:55 Urine Nitrate NEGATIVE (NEGATIVE) 08/21/18 00:55 Urine Bilirubin NEGATIVE (NEGATIVE) 08/21/18 00:55 Urine Urobilinogen 0.2 E.U./dL (0.2 - 1.0) 08/21/18 00:55 Ur Leukocyte Esterase MODERATE (NEGATIVE) H 08/21/18 00:55 Urine RBC 0-2 /hpf (0-5) H 08/21/18 00:55 Urine WBC 6-10 /hpf (0-5) 08/21/18 00:55 Ur Epithelial Cells OCCASIONAL /lpf (FEW) 08/21/18 00:55 Urine Bacteria OCCASIONAL /hpf (NONE SEEN) 08/21/18 00:55 Blood Type A POSITIVE 08/23/18 09:55 Antibody Screen NEGATIVE 08/23/18 09:55 Crossmatch See Detail 08/23/18 09:55 - Physical Exam Vitals and I&O: Vital Signs Temp 97.1 F 08/23/18 07:56 Pulse 76 08/23/18 09:36 Resp 18 08/23/18 09:00 BP 130/75 08/23/18 09:36 Pulse Ox 97 08/23/18 07:56 Intake & Output 08/22/18 08/23/18 08/23/18 18:59 06:59 18:59 Intake Total 500 600 Balance 500 600 Weight (lbs) 61.235 kg 61.235 kg Intake: Oral 500 600 Other: # Voids 2 400 # Bowel Movements 0 0 Stool Characteristics Soft Soft Soft Brown Brown Brown Weight Source Bedscale Bedscale Active Medications: Current Medications Acetaminophen/Hydrocodone Bitart ([place] 5mg/325mg) 1 tab PO Q6H PRN PRN Reason: Pain (Moderate) level 4-6 Stop: 10/19/18 20:08 Last Admin: 08/23/18 04:43 Dose: 1 tab Aspirin (Ecotrin) 81 mg PO DAILY [facility] Stop: 10/20/18 08:59 Last Admin: 08/23/18 09:36 Dose: Not Given Atorvastatin Calcium (Lipitor) 10 mg PO HS [facility]; Protocol Stop: 10/19/18 20:59 Last Admin: 08/22/18 21:17 Dose: 10 mg Diphenhydramine HCl (Benadryl) 50 mg PO TID PRN PRN Reason: Itching Stop: 10/22/18 09:50 Divalproex Sodium (Depakote Dr) 1,000 mg PO TID [facility]; Protocol Stop: 10/20/18 13:59 Last Admin: 08/23/18 09:36 Dose: Not Given Docusate Sodium (Colace) 100 mg PO DAILY [facility] Stop: 10/20/18 08:59 Last Admin: 08/23/18 09:36 Dose: Not Given Folic Acid (Folate) 1 mg PO [facility] Stop: 10/19/18 20:59 Last Admin: 08/22/18 21:21 Dose: 1 mg Hydralazine HCl (Apresoline) 100 mg PO TID [facility] Stop: 10/19/18 20:59 Last Admin: 08/23/18 09:36 Dose: Not Given Labetalol HCl (Trandate) 200 mg PO Q8HR [facility] Stop: 10/19/18 20:59 Last Admin: 08/23/18 04:18 Dose: Not Given Lisinopril (Zestril) 10 mg PO BID [facility] Stop: 10/20/18 08:59 Last Admin: 08/23/18 09:35 Dose: Not Given Miscellaneous (Darbepoetin Pedro In Polysorbat [Aranesp]) 25 mcg IJ QMON [facility] Stop: 10/19/18 20:14 Morphine Sulfate (Morphine) 0.5 mg IVP Q4HR PRN PRN Reason: Pain (Moderate) Stop: 10/20/18 09:58 Last Admin: 08/23/18 00:51 Dose: 0.5 mg Nicotine (Nicotine Transdermal System) 21 mg TD DAILY [facility] Stop: 10/20/18 08:59 Last Admin: 08/23/18 09:47 Dose: 21 mg Sevelamer Carbonate (Renvela) 800 mg PO TIDWM [facility] Stop: 10/19/18 20:59 Last Admin: 08/23/18 09:36 Dose: Not Given Thiamine HCl (Vitamin B1) 100 mg PO DAILY [facility] Stop: 10/20/18 08:59 Last Admin: 08/23/18 09:35 Dose: Not Given Trazodone HCl (Desyrel) 50 mg PO HS [facility]; Protocol Stop: 10/20/18 20:59 Last Admin: 08/22/18 21:17 Dose: 50 mg Trazodone HCl (Desyrel) 50 mg PO HS PRN; Protocol PRN Reason: Insomnia Stop: 10/20/18 10:29 Vitamin B Complex/Vit C/Folic Acid (Vitamin B Complex W/Vitamin C) 1 tab PO DAILY [facility] Stop: 10/20/18 08:59 Last Admin: 08/23/18 09:35 Dose: Not Given Ziprasidone (Geodon) 80 mg PO BID [facility] Stop: 10/20/18 08:59 Last Admin: 08/23/18 09:35 Dose: Not Given General: Cooperative, No acute distress HEENT: Mucous membr. moist/pink Neck: Supple, JVD (10 cm above sternal angle), +2 carotid pulse wo bruit Cardiovascular: Regular rate, Normal S1, Normal S2, Systolic murmurs, Other (S3) Lungs: Other (bilateral wheezing and rales) Abdomen: Bowel sounds, Soft, Other Extremities: Edema (no organomegaly) Neurological: Strength at 5/5 X4 ext, Cranial nerves 3-12 NL, Reflexes 2+ Assessment/Plan - Problem List Patient Problems: All Active Problems ABNORMAL LABORATORY RESULTS; HB 7.7 (Acute) - Plan Plan: Congestive heart failure systolic dysfunction acute Irondeficiency anemia Diabetes mellitus type 2 Diabetic [facility] Thursday end-stage renal disease on dialysis BPH Hypertension Hyperlipidemia Schizophrenia Bipolar Anxiety COPD Seizure disorder Plan patient to take dialysis with ultrafiltration with dialysis Echocardiogram showed cardiomyopathy ejection fraction 32% left ventricular enlargement hypertrophy the left ventricle moderate mitral regurgitation tricuspid regurgitation aortic regurgitation from that regurgitation moderate pulmonary hypertension and large pleural effusion
--- NOTE | 2018-08-23 19:51 | Progress Notes ---
DATE: 08/21/2018 AGE OF THE PATIENT: 48 years. SEX: Male. RACE: . PROBLEM LIST: 1. Somewhat disorientation. 2. 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 3. Chronic renal failure, on dialysis for a few years. The patient was evaluated yesterday in detail. The patient was decided to be dialyzed because of history of dialysis. The patient gets dialyzed on Thursday, , Thursday as per what he told me at [facility] in [place]. The patient demands to be given Benadryl during dialysis, which was provided in half the dose when he was asking and he tolerated reasonably well. No significant problems were noticed. Medications were reviewed and being continued somewhat similar medications what he had history of dialysis, was tolerated well. Also, because I came to know that patient belongs to [facility], Dr. Watson is the primary physician there. I informed him also that this patient is here, we will discharge soon unless they want to take over. I discussed also with Dr. Jama who has been the admitting physician and he was agreeable. JOB# [id number]
--- NOTE | 2018-08-23 20:08 | Progress Notes ---
DATE: AGE OF THE PATIENT: 48 years. SEX: Male. RACE: . HISTORY OF PRESENT ILLNESS: 1. Chronic renal failure, on dialysis Thursday, and Thursday. 2. Hypertension. 3. Diabetes mellitus. 4. 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 The patient also has anemia of renal insufficiency along with hypertension and the patient takes chronically pain medications. The patient reviewed. The patient's vitals this morning are 138/91, temperature 97.8, heart rate 67 per minute, O2 saturation 100% and respiratory rate 18 per minute. Clinical examination does not reveal any new changes. No new chemistries done today. Hydration is okay. No pedal edema. The patient is eating reasonably well, sleeping in between. As mentioned, discussed with Dr. Watson. The patient would be discharged to his service. Also discussed with Dr. Jama. Problems remains as mentioned before. JOB# [id number]
[2018-08-23] MEDS: Atorvastatin Calcium 10 MG TAB PO SCH (21:39)
[2018-08-24] MEDS: Hydrocodone/APAP 5mg/325mg Tab PO PRN (03:46)
[2018-08-24] MEDS: Morphine Sulfate 2 mg/mL 1mL Syr IVP PRN ×4 (07:33→16:19)
[2018-08-24 07:51] LABS: HEMATOCRIT 28.6 % (41.0-60); HEMOGLOBIN 9.7 gm/dL (12-16)
--- NOTE | 2018-08-24 09:54 | General Progress Note ---
Subjective - Review of Systems Service Date: 08/24/18 Subjective: Patient more awake Patient complaining of shortness of breath Objective - Results Result Diagrams: 08/24/18 07:45 08/23/18 05:45 Recent Labs: Laboratory Last Values WBC 4.4 Th/cmm (4.8-10.8) L 08/23/18 05:45 RBC 2.11 Mil/cmm (4.30-5.70) L 08/23/18 05:45 Hgb 9.7 gm/dL (12-16) L 08/24/18 07:45 Hct 28.6 % (41.0-60) L 08/24/18 07:45 MCV 104.7 fl (80-99) H 08/23/18 05:45 MCH 35.0 pg (26.0-30.0) H 08/23/18 05:45 MCHC Differential 33.4 pg (28.0-36.0) 08/23/18 05:45 RDW 13.2 % (11.5-20.0) 08/23/18 05:45 Plt Count 234 Th/cmm (150-400) 08/23/18 05:45 MPV 7.3 fl 08/23/18 05:45 Neutrophils % 65.2 % (40.0-80.0) 08/23/18 05:45 Lymphocytes % 19.6 % (20.0-50.0) L 08/23/18 05:45 Monocytes % 10.0 % (2.0-10.0) 08/23/18 05:45 Eosinophils % 3.5 % (0.0-5.0) 08/23/18 05:45 Basophils % 1.7 % (0.0-2.0) 08/23/18 05:45 PT 10.7 SECONDS (9.5-11.5) 08/20/18 12:00 INR 1.03 (0.5-1.4) 08/20/18 12:00 PTT (Actin FS) 30.2 SECONDS (26.0-38.0) 08/20/18 12:00 Sodium 135 mEq/L (136-145) L 08/23/18 05:45 Potassium 4.6 mEq/L (3.5-5.1) 08/23/18 05:45 Chloride 95 mEq/L (98-107) L 08/23/18 05:45 Carbon Dioxide 29.2 mEq/L (21.0-31.0) 08/23/18 05:45 Anion Gap 15.4 (7.0-16.0) 08/23/18 05:45 BUN 40 mg/dL (7-25) H 08/23/18 05:45 Creatinine 6.0 mg/dL (0.7-1.3) H* 08/23/18 05:45 Est GFR ( Amer) 12.9 ml/min (>90) 08/23/18 05:45 Est GFR (Non-Af Amer) 10.7 ml/min 08/23/18 05:45 BUN/Creatinine Ratio 6.7 08/23/18 05:45 Glucose 82 mg/dL (70-105) 08/23/18 05:45 Whole Bld Lactic Acid 1.11 mmol/L (0.60-1.99) 08/20/18 12:38 Calcium 9.1 mg/dL (8.6-10.3) 08/23/18 05:45 Magnesium 2.4 mg/dL (1.9-2.7) 08/20/18 12:00 Iron 40 ug/dL (38-169) 08/20/18 12:00 TIBC 227 ug/dL (250-450) L 08/20/18 12:00 Iron Saturation 18 % (15-55) 08/20/18 12:00 Unsaturated IBC 187 ug/dL (111-343) 08/20/18 12:00 Total Bilirubin 0.4 mg/dL (0.3-1.0) 08/22/18 07:15 AST 10 U/L (13-39) L 08/22/18 07:15 ALT 6 U/L (7-52) L 08/22/18 07:15 Alkaline Phosphatase 70 U/L (34-104) 08/22/18 07:15 Ammonia 58 umol/L (16-53) H 08/20/18 12:00 Troponin I 0.01 ng/mL (0.01-0.05) 08/20/18 12:00 B-Natriuretic Peptide > 5000.0 pg/mL (5.0-100.0) H 08/21/18 08:51 Total Protein 7.2 gm/dL (6.0-8.3) 08/22/18 07:15 Albumin 3.0 gm/dL (4.2-5.5) L 08/22/18 07:15 Globulin 4.2 gm/dL 08/22/18 07:15 Albumin/Globulin Ratio 0.7 (1.0-1.8) L 08/22/18 07:15 Triglycerides 96 mg/dL (<150) 08/20/18 12:00 Cholesterol 115 mg/dL (<200) 08/20/18 12:00 LDL Cholesterol Direct 53 mg/dL (75-193) L 08/20/18 12:00 HDL Cholesterol 44 mg/dL (23-92) 08/20/18 12:00 Amylase 137 U/L (29-103) H 08/21/18 08:51 Lipase 45 U/L (11-82) 08/21/18 08:51 TSH 2.89 uIU/ml (0.34-5.60) 08/21/18 08:51 Urine Source CLEAN C 08/21/18 00:55 Urine Color YELLOW 08/21/18 00:55 Urine Clarity HAZY (CLEAR) 08/21/18 00:55 Urine pH 8.5 (4.6 - 8.0) 08/21/18 00:55 Ur Specific [place] 1.010 (1.005-1.030) 08/21/18 00:55 Urine Protein 100 mg/dL (NEGATIVE) H 08/21/18 00:55 Urine Glucose (UA) 100 mg/dL (NEGATIVE) H 08/21/18 00:55 Urine Ketones NEGATIVE mg/dL (NEGATIVE) 08/21/18 00:55 Urine Blood TRACE (NEGATIVE) 08/21/18 00:55 Urine Nitrate NEGATIVE (NEGATIVE) 08/21/18 00:55 Urine Bilirubin NEGATIVE (NEGATIVE) 08/21/18 00:55 Urine Urobilinogen 0.2 E.U./dL (0.2 - 1.0) 08/21/18 00:55 Ur Leukocyte Esterase MODERATE (NEGATIVE) H 08/21/18 00:55 Urine RBC 0-2 /hpf (0-5) H 08/21/18 00:55 Urine WBC 6-10 /hpf (0-5) 08/21/18 00:55 Ur Epithelial Cells OCCASIONAL /lpf (FEW) 08/21/18 00:55 Urine Bacteria OCCASIONAL /hpf (NONE SEEN) 08/21/18 00:55 Blood Type A POSITIVE 08/23/18 09:55 Antibody Screen NEGATIVE 08/23/18 09:55 Crossmatch See Detail 08/23/18 09:55 - Physical Exam Vitals and I&O: Vital Signs Temp 97.1 F 08/24/18 08:18 Pulse 68 08/24/18 08:18 Resp 20 08/24/18 08:18 BP 148/85 08/24/18 08:18 Pulse Ox 98 08/24/18 08:18 Intake & Output 08/23/18 08/24/18 08/24/18 18:59 06:59 18:59 Intake Total 600 Balance 600 Weight (lbs) 61.235 kg 61.235 kg Intake: Oral 600 Other: # Voids 400 # Bowel Movements 1 Stool Characteristics Soft Soft Brown Brown Weight Source Bedscale Bedscale Active Medications: Current Medications Acetaminophen/Hydrocodone Bitart ([place] 5mg/325mg) 1 tab PO Q6H PRN PRN Reason: Pain (Moderate) level 4-6 Stop: 10/19/18 20:08 Last Admin: 08/24/18 03:46 Dose: 1 tab Aspirin (Ecotrin) 81 mg PO DAILY [facility] Stop: 10/20/18 08:59 Last Admin: 08/23/18 09:36 Dose: Not Given Atorvastatin Calcium (Lipitor) 10 mg PO HS [facility]; Protocol Stop: 10/19/18 20:59 Last Admin: 08/23/18 21:39 Dose: 10 mg Diphenhydramine HCl (Benadryl) 50 mg PO TID PRN PRN Reason: Itching Stop: 10/22/18 09:50 Divalproex Sodium (Depakote Dr) 1,000 mg PO TID [facility]; Protocol Stop: 10/20/18 13:59 Last Admin: 08/23/18 21:38 Dose: 1,000 mg Docusate Sodium (Colace) 100 mg PO DAILY [facility] Stop: 10/20/18 08:59 Last Admin: 08/23/18 09:36 Dose: Not Given Folic Acid (Folate) 1 mg PO [facility] Stop: 10/19/18 20:59 Last Admin: 08/23/18 21:39 Dose: 1 mg Hydralazine HCl (Apresoline) 100 mg PO TID [facility] Stop: 10/19/18 20:59 Last Admin: 08/23/18 21:38 Dose: 100 mg Labetalol HCl (Trandate) 200 mg PO Q8HR [facility] Stop: 10/19/18 20:59 Last Admin: 08/24/18 05:03 Dose: Not Given Lisinopril (Zestril) 10 mg PO BID [facility] Stop: 10/20/18 08:59 Last Admin: 08/23/18 17:23 Dose: Not Given Miscellaneous (Darbepoetin Pedro In Polysorbat [Aranesp]) 25 mcg IJ QMON [facility] Stop: 10/19/18 20:14 Morphine Sulfate (Morphine) 0.5 mg IVP Q4HR PRN PRN Reason: Pain (Moderate) Stop: 10/20/18 09:58 Last Admin: 08/24/18 07:33 Dose: 0.5 mg Nicotine (Nicotine Transdermal System) 21 mg TD DAILY [facility] Stop: 10/20/18 08:59 Last Admin: 08/23/18 09:47 Dose: 21 mg Sevelamer Carbonate (Renvela) 800 mg PO TIDWM [facility] Stop: 10/19/18 20:59 Last Admin: 08/24/18 07:37 Dose: 800 mg Thiamine HCl (Vitamin B1) 100 mg PO DAILY [facility] Stop: 10/20/18 08:59 Last Admin: 08/23/18 09:35 Dose: Not Given Trazodone HCl (Desyrel) 50 mg PO HS [facility]; Protocol Stop: 10/20/18 20:59 Last Admin: 08/23/18 21:39 Dose: 50 mg Trazodone HCl (Desyrel) 50 mg PO HS PRN; Protocol PRN Reason: Insomnia Stop: 10/20/18 10:29 Vitamin B Complex/Vit C/Folic Acid (Vitamin B Complex W/Vitamin C) 1 tab PO DAILY [facility] Stop: 10/20/18 08:59 Last Admin: 08/23/18 09:35 Dose: Not Given Ziprasidone (Geodon) 80 mg PO BID [facility] Stop: 10/20/18 08:59 Last Admin: 08/23/18 17:22 Dose: 80 mg General: Cooperative, No acute distress HEENT: Mucous membr. moist/pink Neck: Supple, JVD (10 cm above sternal angle), +2 carotid pulse wo bruit Cardiovascular: Regular rate, Normal S1, Normal S2, Systolic murmurs, Other (S3) Lungs: Other (bilateral wheezing and rales) Abdomen: Bowel sounds, Soft, Other Extremities: Edema (no organomegaly) Neurological: Strength at 5/5 X4 ext, Cranial nerves 3-12 NL, Reflexes 2+ Assessment/Plan - Problem List Patient Problems: All Active Problems ABNORMAL LABORATORY RESULTS; HB 7.7 (Acute) - Plan Plan: Congestive heart failure systolic dysfunction acute Irondeficiency anemia Diabetes mellitus type 2 Diabetic [facility] Thursday end-stage renal disease on dialysis BPH Hypertension Hyperlipidemia Schizophrenia Bipolar Anxiety COPD Seizure disorder Plan patient to take dialysis with ultrafiltration with dialysis Echocardiogram showed cardiomyopathy ejection fraction 32% left ventricular enlargement hypertrophy the left ventricle moderate mitral regurgitation tricuspid regurgitation aortic regurgitation from that regurgitation moderate pulmonary hypertension and large pleural effusion
[2018-08-24] MEDS: Vitamin B Complex w/Vitamin C Tab PO SCH (10:09)
[2018-08-24] MEDS: Nicotine 21 mg/24 hr Tdm TD SCH (11:55)
[2018-08-24 12:11] LABS: ANION GAP 14.2 (7.0-16.0); CARBON DIOXIDE 30.6 mEq/L (21.0-31.0); POTASSIUM SERUM 3.8 mEq/L (3.5-5.1)
[2018-08-24 12:12] LABS: CALCIUM SERUM 9.6 mg/dL (8.6-10.3); CREATININE - SERUM 4.3 mg/dL (0.7-1.3); GFR NON AFRICAN-AMERICAN 15.7 ml/min
--- NOTE | 2018-08-24 13:35 | Internal Medicine Prog Note ---
Internal Medicine Subjective - Subjective Service Date: 08/24/18 Patient is:: awake, denies any new complaints Per staff patient has:: no adverse event, no episodes of fall Internal Medicine Objective - Results Result Diagrams: 08/24/18 07:45 08/24/18 07:45 Recent Labs: Laboratory Last Values WBC 4.4 Th/cmm (4.8-10.8) L 08/23/18 05:45 RBC 2.11 Mil/cmm (4.30-5.70) L 08/23/18 05:45 Hgb 9.7 gm/dL (12-16) L 08/24/18 07:45 Hct 28.6 % (41.0-60) L 08/24/18 07:45 MCV 104.7 fl (80-99) H 08/23/18 05:45 MCH 35.0 pg (26.0-30.0) H 08/23/18 05:45 MCHC Differential 33.4 pg (28.0-36.0) 08/23/18 05:45 RDW 13.2 % (11.5-20.0) 08/23/18 05:45 Plt Count 234 Th/cmm (150-400) 08/23/18 05:45 MPV 7.3 fl 08/23/18 05:45 Neutrophils % 65.2 % (40.0-80.0) 08/23/18 05:45 Lymphocytes % 19.6 % (20.0-50.0) L 08/23/18 05:45 Monocytes % 10.0 % (2.0-10.0) 08/23/18 05:45 Eosinophils % 3.5 % (0.0-5.0) 08/23/18 05:45 Basophils % 1.7 % (0.0-2.0) 08/23/18 05:45 PT 10.7 SECONDS (9.5-11.5) 08/20/18 12:00 INR 1.03 (0.5-1.4) 08/20/18 12:00 PTT (Actin FS) 30.2 SECONDS (26.0-38.0) 08/20/18 12:00 Sodium 139 mEq/L (136-145) 08/24/18 07:45 Potassium 3.8 mEq/L (3.5-5.1) 08/24/18 07:45 Chloride 98 mEq/L (98-107) 08/24/18 07:45 Carbon Dioxide 30.6 mEq/L (21.0-31.0) 08/24/18 07:45 Anion Gap 14.2 (7.0-16.0) 08/24/18 07:45 BUN 22 mg/dL (7-25) 08/24/18 07:45 Creatinine 4.3 mg/dL (0.7-1.3) H* 08/24/18 07:45 Est GFR ( Amer) 19.0 ml/min (>90) 08/24/18 07:45 Est GFR (Non-Af Amer) 15.7 ml/min 08/24/18 07:45 BUN/Creatinine Ratio 5.1 08/24/18 07:45 Glucose 78 mg/dL (70-105) 08/24/18 07:45 Whole Bld Lactic Acid 1.11 mmol/L (0.60-1.99) 08/20/18 12:38 Calcium 9.6 mg/dL (8.6-10.3) 08/24/18 07:45 Magnesium 2.4 mg/dL (1.9-2.7) 08/20/18 12:00 Iron 40 ug/dL (38-169) 08/20/18 12:00 TIBC 227 ug/dL (250-450) L 08/20/18 12:00 Iron Saturation 18 % (15-55) 08/20/18 12:00 Unsaturated IBC 187 ug/dL (111-343) 08/20/18 12:00 Total Bilirubin 0.4 mg/dL (0.3-1.0) 08/22/18 07:15 AST 10 U/L (13-39) L 08/22/18 07:15 ALT 6 U/L (7-52) L 08/22/18 07:15 Alkaline Phosphatase 70 U/L (34-104) 08/22/18 07:15 Ammonia 58 umol/L (16-53) H 08/20/18 12:00 Troponin I 0.01 ng/mL (0.01-0.05) 08/20/18 12:00 B-Natriuretic Peptide > 5000.0 pg/mL (5.0-100.0) H 08/21/18 08:51 Total Protein 7.2 gm/dL (6.0-8.3) 08/22/18 07:15 Albumin 3.0 gm/dL (4.2-5.5) L 08/22/18 07:15 Globulin 4.2 gm/dL 08/22/18 07:15 Albumin/Globulin Ratio 0.7 (1.0-1.8) L 08/22/18 07:15 Triglycerides 96 mg/dL (<150) 08/20/18 12:00 Cholesterol 115 mg/dL (<200) 08/20/18 12:00 LDL Cholesterol Direct 53 mg/dL (75-193) L 08/20/18 12:00 HDL Cholesterol 44 mg/dL (23-92) 08/20/18 12:00 Amylase 137 U/L (29-103) H 08/21/18 08:51 Lipase 45 U/L (11-82) 08/21/18 08:51 TSH 2.89 uIU/ml (0.34-5.60) 08/21/18 08:51 Urine Source CLEAN C 08/21/18 00:55 Urine Color YELLOW 08/21/18 00:55 Urine Clarity HAZY (CLEAR) 08/21/18 00:55 Urine pH 8.5 (4.6 - 8.0) 08/21/18 00:55 Ur Specific [place] 1.010 (1.005-1.030) 08/21/18 00:55 Urine Protein 100 mg/dL (NEGATIVE) H 08/21/18 00:55 Urine Glucose (UA) 100 mg/dL (NEGATIVE) H 08/21/18 00:55 Urine Ketones NEGATIVE mg/dL (NEGATIVE) 08/21/18 00:55 Urine Blood TRACE (NEGATIVE) 08/21/18 00:55 Urine Nitrate NEGATIVE (NEGATIVE) 08/21/18 00:55 Urine Bilirubin NEGATIVE (NEGATIVE) 08/21/18 00:55 Urine Urobilinogen 0.2 E.U./dL (0.2 - 1.0) 08/21/18 00:55 Ur Leukocyte Esterase MODERATE (NEGATIVE) H 08/21/18 00:55 Urine RBC 0-2 /hpf (0-5) H 08/21/18 00:55 Urine WBC 6-10 /hpf (0-5) 08/21/18 00:55 Ur Epithelial Cells OCCASIONAL /lpf (FEW) 08/21/18 00:55 Urine Bacteria OCCASIONAL /hpf (NONE SEEN) 08/21/18 00:55 Blood Type A POSITIVE 08/23/18 09:55 Antibody Screen NEGATIVE 08/23/18 09:55 Crossmatch See Detail 08/23/18 09:55 - Physical Exam Vitals and I&O: Vital Signs Temp 98.0 F 08/24/18 11:47 Pulse 70 08/24/18 11:47 Resp 19 08/24/18 11:47 BP 151/91 08/24/18 11:47 Pulse Ox 98 08/24/18 11:47 Intake & Output 08/23/18 08/24/18 08/24/18 18:59 06:59 18:59 Intake Total 600 Balance 600 Weight (lbs) 135 lb 135 lb Intake: Oral 600 Other: # Voids 400 # Bowel Movements 1 Stool Characteristics Soft Soft Brown Brown Weight Source Bedscale Bedscale Active Medications: Current Medications Acetaminophen/Hydrocodone Bitart ([place] 5mg/325mg) 1 tab PO Q6H PRN PRN Reason: Pain (Moderate) level 4-6 Stop: 10/19/18 20:08 Last Admin: 08/24/18 03:46 Dose: 1 tab Aspirin (Ecotrin) 81 mg PO DAILY [facility] [place] Stop: 10/20/18 08:59 Last Admin: 08/24/18 10:08 Dose: Not Given Atorvastatin Calcium (Lipitor) 10 mg PO HS [facility]; Protocol Stop: 10/19/18 20:59 Last Admin: 08/23/18 21:39 Dose: 10 mg Diphenhydramine HCl (Benadryl) 50 mg PO TID PRN PRN Reason: Itching Stop: 10/22/18 09:50 Divalproex Sodium (Depakote Dr) 1,000 mg PO TID [facility] [place]; Protocol Stop: 10/20/18 13:59 Last Admin: 08/24/18 10:08 Dose: Not Given Docusate Sodium (Colace) 100 mg PO DAILY [facility] [place] Stop: 10/20/18 08:59 Last Admin: 08/24/18 10:08 Dose: Not Given Folic Acid (Folate) 1 mg PO [facility] Stop: 10/19/18 20:59 Last Admin: 08/23/18 21:39 Dose: 1 mg Hydralazine HCl (Apresoline) 100 mg PO TID [facility] Stop: 10/19/18 20:59 Last Admin: 08/24/18 10:08 Dose: Not Given Labetalol HCl (Trandate) 200 mg PO Q8HR [facility] Stop: 10/19/18 20:59 Last Admin: 08/24/18 05:03 Dose: Not Given Lisinopril (Zestril) 10 mg PO BID [facility] Stop: 10/20/18 08:59 Last Admin: 08/24/18 10:09 Dose: Not Given Miscellaneous (Darbepoetin Pedro In Polysorbat [Aranesp]) 25 mcg IJ QMON [facility] [place] Stop: 10/19/18 20:14 Morphine Sulfate (Morphine) 0.5 mg IVP Q4HR PRN PRN Reason: Pain (Moderate) Stop: 10/20/18 09:58 Last Admin: 08/24/18 11:57 Dose: 0.5 mg Nicotine (Nicotine Transdermal System) 21 mg TD DAILY [facility] Stop: 10/20/18 08:59 Last Admin: 08/24/18 11:55 Dose: 21 mg Sevelamer Carbonate (Renvela) 800 mg PO TIDWM [facility] Stop: 10/19/18 20:59 Last Admin: 08/24/18 11:55 Dose: Not Given Thiamine HCl (Vitamin B1) 100 mg PO DAILY [facility] [place] Stop: 10/20/18 08:59 Last Admin: 08/24/18 10:09 Dose: Not Given Trazodone HCl (Desyrel) 50 mg PO HS [facility]; Protocol Stop: 10/20/18 20:59 Last Admin: 08/23/18 21:39 Dose: 50 mg Trazodone HCl (Desyrel) 50 mg PO HS PRN; Protocol PRN Reason: Insomnia Stop: 10/20/18 10:29 Vitamin B Complex/Vit C/Folic Acid (Vitamin B Complex W/Vitamin C) 1 tab PO DAILY [facility] [place] Stop: 10/20/18 08:59 Last Admin: 08/24/18 10:09 Dose: Not Given Ziprasidone (Geodon) 80 mg PO BID [facility] [place] Stop: 10/20/18 08:59 Last Admin: 08/24/18 10:09 Dose: Not Given General: weak, alert, other (confused) HEENT: NC/AT Neck: Supple Lungs: CTAB Cardiovascular: RRR Abdomen: soft, non-tender Extremities: clear Neurological: no change Internal Medicine Assmt/Plan - Assessment Assessment: chf bph diabetes mellitus bipolar anxiety copd seizure diosrder schizophrenia esrd/hd htn anemia - Plan Plan: continuation of care continue present meds as directed pain management monitor vitals diet and labs fall precaution continue present care management
== END 2018-08-24 17:30 | DRG 291 ==
LOC: ER 11:35 → TELE 13:53
PROVIDERS: ADMIT Internal Medicine; ATTEND Internal Medicine
PROC: 5A1D70Z Performance of Urinary Filtration, Intermittent, Less than 6 Hours Per Day (ICD-10-PCS; principal; 2018-08-21)
PROC: 5A1D70Z Performance of Urinary Filtration, Intermittent, Less than 6 Hours Per Day (ICD-10-PCS; 2018-08-23)
PROC: 30233N1 Transfusion of Nonautologous Red Blood Cells into Peripheral Vein, Percutaneous Approach (ICD-10-PCS; 2018-08-23)
PROC: 5A1D70Z Performance of Urinary Filtration, Intermittent, Less than 6 Hours Per Day (ICD-10-PCS; 2018-08-24)
DX: I13.2 Hypertensive heart and chronic kidney disease with heart failure and with stage 5 chronic kidney disease, or end stage renal disease (principal); N18.6 End stage renal disease; I50.41 Acute combined systolic (congestive) and diastolic (congestive) heart failure; I42.9 Cardiomyopathy, unspecified; Z99.2 Dependence on renal dialysis; E11.22 Type 2 diabetes mellitus with diabetic chronic kidney disease; J44.9 Chronic obstructive pulmonary disease, unspecified; F17.210 Nicotine dependence, cigarettes, uncomplicated; Z93.0 Tracheostomy status; D50.9 Iron deficiency anemia, unspecified; N40.0 Benign prostatic hyperplasia without lower urinary tract symptoms; E78.5 Hyperlipidemia, unspecified; F20.9 Schizophrenia, unspecified; F31.9 Bipolar disorder, unspecified; G40.909 Epilepsy, unspecified, not intractable, without status epilepticus; F41.9 Anxiety disorder, unspecified; I69.30 Unspecified sequelae of cerebral infarction; I27.20 Pulmonary hypertension, unspecified; I08.3 Combined rheumatic disorders of mitral, aortic and tricuspid valves
CPT/HCPCS: 36415-UA; 71045-TC; 76700-TC; 80048-TC; 80053-TC; 80061-TC; 81001-TC; 82140-TC; 82150-TC; 83036-90; 83540-90; 83550-90; 83605; 83690-TC; 83735-TC; 83880-TC; 84443-TC; 84484-TC; 85014-TC; 85018-TC; 85025-TC; 85610-TC; 85730-TC; 86850-TC; 86900-TC; 86901-TC; 86922-TC; 90937; 93005; 94760; J1200; J1644; J2270; J7030; P9016; Z7610

== ENCOUNTER 2018-08-29 22:59 | Inpatient (IN) | payer MEDICARE, MEDICAID ==
--- NOTE | 2018-08-29 23:39 | ED Physician Chart ---
ED Chief Complaint/HPI - Patient Information Date Seen:: 08/29/18 Time Seen:: 23:34 Chief Complaint:: lt lower infiltrate on cxr History of Present Illness:: 48 yr old `male with ESRD DIALYSIS DM HEART FAILURE ANEMIA HTN SCHIZOPHRENIA OLD OK BPH MUSCLE WEAKNESS AV SHUNT RT UPPER ARM CTX RT HAND HERE FOR INFILTRATE ON CXR Allergies:: Allergies Allergy/AdvReac Type Severity Reaction Status Date / Time haloperidol [From Haldol] Allergy Verified 08/20/18 11:44 lorazepam [From Ativan] Allergy Verified 08/20/18 11:44 Vitals:: Vital Signs - 8 hr 08/29/18 23:00 Temp 98.4 F HR 70 RR 20 BP 126/80 O2 Sat % 100 ED Review of Systems - Review of Systems General/Constitutional: No fever Skin: No skin lesions Head: No headache Eyes: No loss of vision ENT: No earache Cardio Vascular: No chest pain Pulmonary: No SOB GI: No vomiting Musculoskeletal: No bone or joint pain Endocrine: No polyuria Psychiatric: Prior psych history Hematopoietic: No bruising Allergic/Immuno: No urticaria Neurological: No syncope ED Past Medical History - Past Medical History Past Medical History: HTN, DM Family Medical History - Family Member Mother History Unknown: Yes ED Physical Exam - Physical Examination General/Constitutional: Well-developed, well-nourished Head: Atraumatic Eyes: Lids, conjuctiva normal Skin: Nl inspection ENMT: External ears, nose nl Neck: Full ROM w/o pain Respiratory: Nl effort/Exclusion Cardio Vascular: RRR GI: No tenderness/rebounding/guarding : No CVA tenderness Extremities: No tenderness or effusion Neuro/Psych: Alert/oriented ED Assessment - Assessment General Assessment: ESRD POSSIBLE PNEUMONIA ED Septic Shock - . Is Septic Shock (SBP<90, OR Lactate>4 mmol\L) present?: No - <6hrs of presentation: Vital Signs: Vital Signs - 8 hr 08/29/18 23:00 Temp 98.4 F HR 70 RR 20 BP 126/80 O2 Sat % 100 ED Reassessment (Disposition) - Reassessment Reassessment:: ESRD POSSIBLE PNEUMONIA - Diagnosis Diagnosis:: ABOVE - Patient Disposition Discharge/Transfer:: Acute Care w/in this hosp Admitted to:: Med/Surg Condition at Disposition:: Stable
[2018-08-30 00:13] LABS: % EOSINOPHILS 2.7 % (0.0-5.0); % LYMPHOCYTES 14.2 % (20.0-50.0); % MONOCYTES 5.5 % (2.0-10.0); % NEUTROPHILS 77.6 % (40.0-80.0); EOSINOPHILE ABSOLUTE 0.3 Th/cmm (0.1-0.4); HEMATOCRIT 25.6 % (41.0-60); HEMOGLOBIN 8.7 gm/dL (12-16); LYMPHOCYTE ABSOLUTE 1.5 Th/cmm (1.5-3.0); MEAN CORPUSCULAR HEMOGLOBIN 33.9 pg (26.0-30.0); MEAN CORPUSCULAR HGB CONC 34.2 pg (28.0-36.0); MEAN PLATELET VOLUME 8.2 fl; MONOCYTE ABSOLUTE 0.6 Th/cmm (0.3-1.0); NEUTROPHILE ABSOLUTE 8.5 Th/cmm (1.8-8.0); PLATELET COUNT 255 Th/cmm (150-400); RED BLOOD COUNT 2.58 Mil/cmm (4.30-5.70); RED CELL DISTRIBUTION WIDTH 15.5 % (11.5-20.0); WHITE BLOOD COUNT 10.9 Th/cmm (4.8-10.8)
[2018-08-30 00:32] LABS: ALB/GLOB RATIO 0.7 (1.0-1.8); ALBUMIN 3.1 gm/dL (4.2-5.5); ANION GAP 18.8 (7.0-16.0); BILIRUBIN,TOTAL 0.4 mg/dL (0.3-1.0); CALCIUM SERUM 9.8 mg/dL (8.6-10.3); CARBON DIOXIDE 24.2 mEq/L (21.0-31.0); GFR AFRICAN-AMERICAN 14.3 ml/min (>90); GFR NON AFRICAN-AMERICAN 11.8 ml/min; TOTAL PROTEIN,SERUM 7.4 gm/dL (6.0-8.3)
[2018-08-30 00:33] LABS: CREATININE - SERUM 5.5 mg/dL (0.7-1.3)
[2018-08-30] MEDS ORDERED: cefTRIAXone 1 GM in Sodium Chloride 0.9% 50 ML IV SCH (02:00)
[2018-08-30] MEDS ORDERED: Azithromycin 250 MG in Sodium Chloride 0.9% 250 ML IV SCH (03:00)
--- NOTE | 2018-08-30 04:27 | Consultation ---
DATE OF CONSULTATION: 08/30/2018 INFECTIOUS DISEASE CONSULTATION REFERRING PHYSICIAN: Dr. Jama. REASON FOR CONSULTATION: Pneumonia. HISTORY OF PRESENT ILLNESS: The patient is a 48-year-old male with past medical history of CKD stage 5, on hemodialysis, anemia, hypertension, hyperlipidemia, recently admitted for shortness of breath and altered mental status on 08/20/2018. He was discharged on 08/24/2018 in stable condition. Now, he is brought back to the ER for infiltrate on chest x-ray, suspect pneumonia. On initial evaluation, the patient's temperature was 98.4 degrees Fahrenheit and WBC count was 10,900. ID consult is called for antibiotic management. PAST MEDICAL HISTORY: Includes diabetes mellitus type 2, CKD stage 5, on hemodialysis, anemia of chronic disease, hypertension, CHF, schizophrenia, old [place], BPH, muscle weakness, AV shunt in the right upper arm. ALLERGIES: HALOPERIDOL, LORAZEPAM. MEDICATIONS: As per medication reconciliation sheet. Antibiotic-[place], he is not receiving any antibiotic. No IV access. Rocephin and Zithromax have been ordered. SOCIAL HISTORY: The patient lives at a nursing facility. No history of smoking, alcohol or drug use. FAMILY HISTORY: Not available. REVIEW OF SYSTEMS: GENERAL: The patient has no fever, no chills. HEENT: No diplopia, no photophobia, no sore throat. RESPIRATORY: No cough, no shortness of breath. The patient has no wheezing. GASTROINTESTINAL: The patient has nausea and vomiting. No diarrhea, no constipation. GENITOURINARY: No dysuria. NEUROLOGIC: No headache, no dizziness, no focal weakness. PHYSICAL EXAMINATION: CURRENT VITAL SIGNS: Shows WBC count is 97.6, pulse 72, respirations 19, blood pressure 122/81. GENERAL: The patient is comfortable, lying in bed, not in any acute distress. HEENT: Head is normocephalic, atraumatic. Oral cavity is moist. [place] tongue. NECK: Supple. No JVD, no bruit. Trachea in midline. CHEST: Bilateral breath sounds. No crackles or wheezing. HEART: S1 and S2 within normal limits. Regular rhythm. No murmur, no gallop. ABDOMEN: Soft, nontender, nondistended. Bowel sounds present. EXTREMITIES: No cyanosis, no clubbing, no edema. The patient has left upper extremity AV shunt. CENTRAL NERVOUS SYSTEM: Alert, awake, oriented x 3. LABORATORY AND DIAGNOSTIC DATA: Current lab shows WBC count is 10,900, hemoglobin 8.7, hematocrit 25.6, platelets are 255,000, neutrophil 77.6%. Sodium 132, potassium 5, chloride 94, bicarbonate is 24, BUN is 57, creatinine 5.5, and glucose is 80. Chest x-ray as per the ER physician. Chest x-ray is not available. As per the ER report, the patient has possible pneumonia. IMPRESSION: 1. Pneumonia. 2. Anemia of chronic disease. 3. History of diabetes mellitus type 2. 4. Hypertension. 5. Chronic kidney disease stage 5. RECOMMENDATIONS: We will give Levaquin 500 mg p.o. one dose and continue Rocephin and Zithromax from tomorrow. As the patient has vomiting, the patient may have gastroparesis, we will give Zofran p.o. Thank you, Dr. Jama, for involving me in taking care of this patient. JOB# [id number] MTDD
[2018-08-30 05:26] VITALS: BP 127/84
--- NOTE | 2018-08-30 07:39 | Diagnostic Imaging Report ---
Exam: Chest x-ray HISTORY: Pneumonia Prior exam: 08/30/2018 Findings: Frontal examination of chest reviewed. The study demonstrates a cardiomegaly with superimposed left lower lobe infiltrate and effusion. There is evidence for mild peribronchial thickening right base and pleural thickening unchanged upper approximation. Bony thorax intact. Mediastinal structures midline the heart is prominent. IMPRESSION: Compared to prior examination of the same day, there is decrease in left lower lobe pneumonia and effusion. There is decrease in congestion. Mild right basilar infiltrate and small effusion.
--- NOTE | 2018-08-30 07:41 | Diagnostic Imaging Report ---
Exam: Portable chest x-ray. HISTORY: Infiltrate. Findings: Portable summation of the chest upright at 0019 hours reviewed the study correlated with the prior exam of 08/20/2018. The study demonstrates cardiomegaly congestion. Bilateral infiltrates and effusions predominantly left-sided, slightly increased. Bony thorax is intact. IMPRESSION: Cardiomegaly, congestion. Bilateral pneumonia superimposed effusions. Follow-up exam is recommended.
[2018-08-30] MEDS ORDERED: Hydrocodone/APAP 5mg/325mg Tab PO PRN (09:49)
[2018-08-30] MEDS ORDERED: DARBEPOETIN ALFA IN POLYSORBAT 25 MCG IJ SCH (10:00)
--- NOTE | 2018-08-30 11:21 | History and Physical ---
History of Present Illness - HPI Chief Complaint: 48 y/o male patient was brought to ER due to complaints of having shortness of breath and Altered Metal Status on 08/20/18 was treated and was discharged on 08/24/18 in stable condition. Patient was then brought back to ER due to Patient having an abnormal chest x- ray. Patient's chest x-ray showed Left Lower Infiltrate. HPI: 48 y/o male patient was admitted to [facility] due to having an abnormal chest x-ray which showed Left Lower Infiltrate. Patient has history of ESRD stage 5; On Hemodialysis, Diabetes Mellitus, Schizophrenia, CHF, and Anemia of chronic disease, BPH, Old PA, Muscle weakness and AV shunt in right arm. Patient had an ER assessment done and a complete workup was done. Patient was diagnosed with Pneumonia. Patient will have an ID consult and Antibiotic management. I will follow, treat and monitor patient. Patient will continue current treatment plan as ordered. 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 (Schizophrenia.) GI: Report: No Pertinent Hx Psych: Report: Schizophrenia Musculoskeletal: Report: Weakness Rheumatologic: Report: No pertinent Hx Infectious Disease: Report: No Pertinent Hx Renal/: Report: Benign Prostatic Enlarg Endocrine: Report: Diabetes Dermatology: Report: No Pertinent Hx - Past Surgical History Past Surgical History: Other (AV shunt.) Family Medical History - Family Member Mother History Unknown: Yes Social History Smoke: No Alcohol: None Drugs: None Lives: Correction Domestic Violence: Negative Health Maintenance Health Maintenance: Other (see charts.) - Medications Home Medications: Home Medication Medication Instructions Recorded Type Amino Acids/Protein Hydrolys 30 ml PO TID 08/20/18 History [Pro-Stat Sugar Free Liquid Pkt] Aspirin [Adult Aspirin Regimen] 81 mg PO DAILY 08/20/18 History Atorvastatin Calcium [Lipitor] 10 mg PO HS 08/20/18 History Clonazepam [Klonopin] 1 mg PO Q12H 08/20/18 History Darbepoetin Pedro in Polysorbat 25 mcg IJ QMON 08/20/18 History [Aranesp] Divalproex Sodium [Depakote] 1,000 mg PO TID 08/20/18 History Docusate Sodium [Colace] 100 mg PO DAILY 08/20/18 History Folic Acid [Folate*] 1 mg PO HS 08/20/18 History Hydralazine HCl 100 mg PO TID 08/20/18 History Hydrocodone/Acetaminophen [[place] 1 each PO Q6H PRN 08/20/18 History 5-325 Tablet] Lisinopril 10 mg PO BID 08/20/18 History Nephrovite 1 tab PO DAILY 08/20/18 History Nut.tx.impaired Renal Fxn,Soy 237 ml PO BID 08/20/18 History [Novasource Renal 2 [place]] Sevelamer Carbonate 800 mg PO TID 08/20/18 History Labetalol [Trandate] 200 mg PO Q8HR tab 08/24/18 Rx Nicotine 21 mg/24 hr [Nicotine 21 mg TD DAILY tdm 08/24/18 Rx Transdermal System] Thiamine [Vitamin B1] 100 mg PO DAILY tab 08/24/18 Rx Vitamin B Complex w/Vitamin C 1 tab PO DAILY tab 08/24/18 Rx Ziprasidone HCl [Geodon] 80 mg PO BID cap 08/24/18 Rx diphenhydrAMINE [Benadryl] 50 mg PO TID PRN udc 08/24/18 Rx Cholecalciferol (Vitamin D3) 1 cap PO DAILY 08/29/18 History [Vitamin D3] Hydrocodone/APAP 5mg/325mg [[place] 1 tab PO Q6H PRN 08/29/18 History 5mg/325mg] Levothyroxine [Synthroid] 100 mcg PO QDAC 08/29/18 History traZODone HCl [Desyrel*] 50 mg PO HS PRN 08/29/18 History Other Medications: Please see medication reconciliation sheet. - Allergies Allergies/Adverse Reactions: Allergies Allergy/AdvReac Type Severity Reaction Status Date / Time haloperidol [From Haldol] Allergy Verified 08/20/18 11:44 lorazepam [From Ativan] Allergy Verified 08/20/18 11:44 Review of Systems - Review of Systems Review of Systems: 48 y/o male patient has hx of Anemia of chronic disease, ERSRD, on Hemodialysis , Diabetes and Htn. Constitutional: Report: Weakness Eyes: Report: No Significant ENT: Report: No Significant Respiratory: Report: Shortness of Breath Cardiovascular: Report: No Significant Gastrointestinal: Report: No Significant Genitourinary: Report: No Significant Musculoskeletal: Report: Other (Muscle weakness.) Skin: Report: No Significant Neurological: Report: Other (Schizophrenia.) Physical Exam - Physical Exam HEENT: Report: Ears Nose Throat within normal limits Neck: Report: Within normal limits Cardiovascular Systems: Report: +s1/s2 noted, Regular, Rate and Rhythm Respiratory: Report: Wheezing, Rhonchi Abdomen: Report: Non-tender to palpation Back: Report: Inspection of back is within normal limits. Extremities: Report: Non-tender to palpation. Skin: Report: Color of skin is within normal limits Neuro/Psych: Report: Weakness or sensory loss noted. - Lab Results All Lab Results last 24 hours: Laboratory Results - last 24 hr 08/29/18 08/29/18 08/30/18 23:59 23:59 06:16 WBC 10.9 H RBC 2.58 L Hgb 8.7 L Hct 25.6 L MCV 99.0 MCH 33.9 H MCHC Differential 34.2 RDW 15.5 Plt Count 255 MPV 8.2 Neutrophils % 77.6 Lymphocytes % 14.2 L Monocytes % 5.5 Eosinophils % 2.7 Basophils % 0.0 Sodium 132 L Potassium 5.0 Chloride 94 L Carbon Dioxide 24.2 Anion Gap 18.8 H BUN 57 H Creatinine 5.5 H* Est GFR ( Amer) 14.3 Est GFR (Non-Af Amer) 11.8 BUN/Creatinine Ratio 10.4 Glucose 80 POC Glucose 77 Calcium 9.8 Total Bilirubin 0.4 AST 13 ALT 4 L Alkaline Phosphatase 70 Total Protein 7.4 Albumin 3.1 L Globulin 4.3 Albumin/Globulin Ratio 0.7 L - Assessment Assessment: Pneumonia. ESRD stage 5, On Hemodialysis. Diabetes Mellitus. Schizophrenia. CHF. Anemia of chronic disease. BPH. Old PA. Muscle weakness. AV shunt in right arm. - Plan Plan: Plan Continuation of care. Monitor Vitals and Labs. Continue present meds as directed. Monitor Diet/Nutritional support. Respiratory treatments and Pulmonary support. Supplemental Oxygen. Aspiration precaution. Deep suctioning prn. Monitor Diet/Nutritional support. Monitor mental status progression. Monitor behavioral health status. Pain Management. Safety precaution. Supportive care. Fall precaution, frequent nursing rounds, and as needed restraints to prevent fall. Continue collaborating with consulting specialists, case management and nursing team. Will Monitor patient and continue current treatment plan as ordered
[2018-08-30] MEDS ORDERED: Morphine Sulfate 2 mg/mL 1mL Syr IVP PRN (11:41)
[2018-08-30] MEDS: Morphine Sulfate 2 mg/mL 1mL Syr IVP PRN ×2 (12:22→20:06)
[2018-08-30] MEDS: cefTRIAXone 1 GM in 0.9% NS 50 ML IV SCH (13:42)
[2018-08-30] MEDS: AZITHROMYCIN IV SCH (13:51)
[2018-08-30] MEDS: NS 0.9% IV SCH (13:51)
--- NOTE | 2018-08-30 15:08 | Infectious Disease Prog Note ---
Infectious Disease Subjective - Review of Systems Service Date: 08/30/18 Subjective: refused levaquin last night. Infectious Disease Objective - Results Result Diagrams: 08/29/18 23:59 08/29/18 23:59 Recent Labs: Laboratory Last Values WBC 10.9 Th/cmm (4.8-10.8) H 08/29/18 23:59 RBC 2.58 Mil/cmm (4.30-5.70) L 08/29/18 23:59 Hgb 8.7 gm/dL (12-16) L 08/29/18 23:59 Hct 25.6 % (41.0-60) L 08/29/18 23:59 MCV 99.0 fl (80-99) 08/29/18 23:59 MCH 33.9 pg (26.0-30.0) H 08/29/18 23:59 MCHC Differential 34.2 pg (28.0-36.0) 08/29/18 23:59 RDW 15.5 % (11.5-20.0) 08/29/18 23:59 Plt Count 255 Th/cmm (150-400) 08/29/18 23:59 MPV 8.2 fl 08/29/18 23:59 Neutrophils % 77.6 % (40.0-80.0) 08/29/18 23:59 Lymphocytes % 14.2 % (20.0-50.0) L 08/29/18 23:59 Monocytes % 5.5 % (2.0-10.0) 08/29/18 23:59 Eosinophils % 2.7 % (0.0-5.0) 08/29/18 23:59 Basophils % 0.0 % (0.0-2.0) 08/29/18 23:59 Sodium 132 mEq/L (136-145) L 08/29/18 23:59 Potassium 5.0 mEq/L (3.5-5.1) 08/29/18 23:59 Chloride 94 mEq/L (98-107) L 08/29/18 23:59 Carbon Dioxide 24.2 mEq/L (21.0-31.0) 08/29/18 23:59 Anion Gap 18.8 (7.0-16.0) H 08/29/18 23:59 BUN 57 mg/dL (7-25) H 08/29/18 23:59 Creatinine 5.5 mg/dL (0.7-1.3) H* 08/29/18 23:59 Est GFR ( Amer) 14.3 ml/min (>90) 08/29/18 23:59 Est GFR (Non-Af Amer) 11.8 ml/min 08/29/18 23:59 BUN/Creatinine Ratio 10.4 08/29/18 23:59 Glucose 80 mg/dL (70-105) 08/29/18 23:59 POC Glucose 77 MG/DL (70 - 105) 08/30/18 06:16 Calcium 9.8 mg/dL (8.6-10.3) 08/29/18 23:59 Total Bilirubin 0.4 mg/dL (0.3-1.0) 08/29/18 23:59 AST 13 U/L (13-39) 08/29/18 23:59 ALT 4 U/L (7-52) L 08/29/18 23:59 Alkaline Phosphatase 70 U/L (34-104) 08/29/18 23:59 Total Protein 7.4 gm/dL (6.0-8.3) 08/29/18 23:59 Albumin 3.1 gm/dL (4.2-5.5) L 08/29/18 23:59 Globulin 4.3 gm/dL 08/29/18 23:59 Albumin/Globulin Ratio 0.7 (1.0-1.8) L 08/29/18 23:59 - Physical Exam Vitals and I&O: Vital Signs Temp 97 F 08/30/18 11:42 Pulse 72 08/30/18 11:42 Resp 20 08/30/18 11:42 BP 140/76 08/30/18 11:42 Pulse Ox 94 08/30/18 11:42 Intake & Output 08/29/18 08/30/18 08/30/18 18:59 06:59 18:59 Weight (lbs) 61.235 kg Other: Weight Source Patient stated Active Medications: Current Medications Acetaminophen/Hydrocodone Bitart ([place] 5mg/325mg) 1 tab PO Q6H PRN PRN Reason: Pain (Moderate) Stop: 10/29/18 09:48 Aspirin (Ecotrin) 81 mg PO DAILY [facility] Stop: 10/30/18 08:59 Atorvastatin Calcium (Lipitor) 10 mg PO HS [facility]; Protocol Stop: 10/29/18 20:59 Cholecalciferol (Vitamin D3) 1,000 iu PO DAILY [facility] Stop: 10/30/18 08:59 Clonazepam (Klonopin) 1 mg PO Q12HR [facility]; Protocol Stop: 10/29/18 20:59 Diphenhydramine HCl (Benadryl) 50 mg PO TID PRN PRN Reason: Itching Stop: 10/29/18 09:47 Docusate Sodium (Colace) 100 mg PO DAILY [facility] Stop: 10/30/18 08:59 Folic Acid (Folate) 1 mg PO HS [facility] Stop: 10/29/18 20:59 Hydralazine HCl (Apresoline) 100 mg PO TID [facility] Stop: 10/29/18 13:59 Ceftriaxone Sodium 1 gm/ (Sodium Chloride) 50 mls @ 100 mls/hr IV Q24H [facility] Stop: 10/29/18 11:59 Last Admin: 08/30/18 13:42 Dose: 100 mls/hr Azithromycin 250 mg/ Sodium (Chloride) 250 mls @ 250 mls/hr IV Q24H [facility] Stop: 10/29/18 12:59 Last Admin: 08/30/18 13:51 Dose: 250 mls/hr Miscellaneous (Amino Acids/Protein Hydrolys [Pro-Stat Sugar Free Liquid Pkt]) 30 ml PO TID [facility] Stop: 10/29/18 13:59 Miscellaneous (Darbepoetin Pedro In Polysorbat [Aranesp]) 25 mcg IJ QMON [facility] Stop: 10/29/18 09:59 Morphine Sulfate (Morphine) 1 mg IVP Q4H PRN PRN Reason: Pain (Moderate) Stop: 10/29/18 11:40 Morphine Sulfate (Morphine) 2 mg IVP Q4H PRN PRN Reason: Pain (Severe) Stop: 10/29/18 11:43 Last Admin: 08/30/18 12:22 Dose: 2 mg Ondansetron HCl (Zofran Odt) 4 mg PO Q6H PRN PRN Reason: Nausea / Vomiting Stop: 10/29/18 03:14 Last Admin: 08/30/18 03:31 Dose: 4 mg General: no acute distress, cachectic HEENT: atraumatic, normocephalic, PERRLA Neck: supple, no thyromegaly Cardiovascular: S1S2, regular Lungs: clear to auscultation bilaterally, clear to percussion Abdomen: soft, no tender, no distended Extremities: no cyanosis, no clubbing, no edema Neurological: awake, alert, oriented Skin: intact - Procedures Procedures: Procedures Procedure Code Date PERFORMANCE OF URINARY FILTRATION, <6 HRS/DAY [id number] 08/20/18 TRANSFUSE NONAUT RED BLOOD CELLS IN PERIPH VEIN, PERC 39872Y3 08/20/18 Infectious Disease Assmt/Plan - Assessment Assessment: 1. Pneumonia. 2. Anemia of chronic disease. 3. History of diabetes mellitus type 2. 4. Hypertension. 5. Chronic kidney disease stage 5 on hd.
--- NOTE | 2018-08-30 16:39 | Consultation ---
Consult Note - Consult Note Service Date: 08/30/18 Consult Note: PHYSICIAN Consultation Note: Date of Admission: 08/30/18 Purpose of Consultation: Chief Complaint: History of Present Illness: Patient SOFI HOPKINS was admitted to [facility] with PNEUMONIA. Past Medical History: Diagnoses ANEMIA IN CHRONIC KIDNEY DISEASE (08/30/18) TYPE 2 DIABETES MELLITUS W DIABETIC CHRONIC KIDNEY DISEASE (08/30/18) ESSENTIAL (PRIMARY) HYPERTENSION (08/30/18) PNEUMONIA, UNSPECIFIED ORGANISM (08/30/18) END STAGE RENAL DISEASE (08/30/18) WEAKNESS (08/30/18) DEPENDENCE ON RENAL DIALYSIS (08/30/18) Allergies Allergy/AdvReac Type Severity Reaction Status Date / Time haloperidol [From Haldol] Allergy Verified 08/20/18 11:44 lorazepam [From Ativan] Allergy Verified 08/20/18 11:44 Vital Signs Temp 97.6 F 08/30/18 15:57 Pulse 71 08/30/18 15:57 Resp 18 08/30/18 15:57 BP 130/88 08/30/18 15:57 Pulse Ox 100 08/30/18 15:57 Intake & Output 08/29/18 08/30/18 08/30/18 18:59 06:59 18:59 Weight (lbs) 61.235 kg Other: Weight Source Patient stated Laboratory Results - last 24 hr 08/29/18 08/29/18 08/30/18 23:59 23:59 06:16 WBC 10.9 H RBC 2.58 L Hgb 8.7 L Hct 25.6 L MCV 99.0 MCH 33.9 H MCHC Differential 34.2 RDW 15.5 Plt Count 255 MPV 8.2 Neutrophils % 77.6 Lymphocytes % 14.2 L Monocytes % 5.5 Eosinophils % 2.7 Basophils % 0.0 Sodium 132 L Potassium 5.0 Chloride 94 L Carbon Dioxide 24.2 Anion Gap 18.8 H BUN 57 H Creatinine 5.5 H* Est GFR ( Amer) 14.3 Est GFR (Non-Af Amer) 11.8 BUN/Creatinine Ratio 10.4 Glucose 80 POC Glucose 77 Calcium 9.8 Total Bilirubin 0.4 AST 13 ALT 4 L Alkaline Phosphatase 70 Total Protein 7.4 Albumin 3.1 L Globulin 4.3 Albumin/Globulin Ratio 0.7 L Home Medication Medication Instructions Recorded Type Amino Acids/Protein Hydrolys 30 ml PO TID 08/20/18 History [Pro-Stat Sugar Free Liquid Pkt] Aspirin [Adult Aspirin Regimen] 81 mg PO DAILY 08/20/18 History Atorvastatin Calcium [Lipitor] 10 mg PO HS 08/20/18 History Clonazepam [Klonopin] 1 mg PO Q12H 08/20/18 History Darbepoetin Pedro in Polysorbat 25 mcg IJ QMON 08/20/18 History [Aranesp] Divalproex Sodium [Depakote] 1,000 mg PO TID 08/20/18 History Docusate Sodium [Colace] 100 mg PO DAILY 08/20/18 History Folic Acid [Folate*] 1 mg PO HS 08/20/18 History Hydralazine HCl 100 mg PO TID 08/20/18 History Hydrocodone/Acetaminophen [[place] 1 each PO Q6H PRN 08/20/18 History 5-325 Tablet] Lisinopril 10 mg PO BID 08/20/18 History Nephrovite 1 tab PO DAILY 08/20/18 History Nut.tx.impaired Renal Fxn,Soy 237 ml PO BID 08/20/18 History [Novasource Renal 2 [place]] Sevelamer Carbonate 800 mg PO TID 08/20/18 History Labetalol [Trandate] 200 mg PO Q8HR tab 08/24/18 Rx Nicotine 21 mg/24 hr [Nicotine 21 mg TD DAILY tdm 08/24/18 Rx Transdermal System] Thiamine [Vitamin B1] 100 mg PO DAILY tab 08/24/18 Rx Vitamin B Complex w/Vitamin C 1 tab PO DAILY tab 08/24/18 Rx Ziprasidone HCl [Geodon] 80 mg PO BID cap 08/24/18 Rx diphenhydrAMINE [Benadryl] 50 mg PO TID PRN udc 08/24/18 Rx Cholecalciferol (Vitamin D3) 1 cap PO DAILY 08/29/18 History [Vitamin D3] Hydrocodone/APAP 5mg/325mg [[place] 1 tab PO Q6H PRN 08/29/18 History 5mg/325mg] Levothyroxine [Synthroid] 100 mcg PO QDAC 08/29/18 History traZODone HCl [Desyrel*] 50 mg PO HS PRN 08/29/18 History Current Medications Generic Name Dose Route Start Last Admin Trade Name Freq PRN Reason Stop Dose Admin Acetaminophen/Hydrocodone Bitart 1 tab 08/30/18 09:49 [place] 5mg/325mg PO 10/29/18 09:48 Q6H PRN Pain (Moderate) Aspirin 81 mg 08/31/18 09:00 Ecotrin PO 10/30/18 08:59 DAILY [facility] Atorvastatin Calcium 10 mg 08/30/18 21:00 Lipitor PO 10/29/18 20:59 HS [facility] Protocol Cholecalciferol 1,000 iu 08/31/18 09:00 Vitamin D3 PO 10/30/18 08:59 DAILY [facility] Clonazepam 1 mg 08/30/18 21:00 Klonopin PO 10/29/18 20:59 Q12HR [facility] Protocol Diphenhydramine HCl 50 mg 08/30/18 09:48 Benadryl PO 10/29/18 09:47 TID PRN Itching Docusate Sodium 100 mg 08/31/18 09:00 Colace PO 10/30/18 08:59 DAILY [facility] Folic Acid 1 mg 08/30/18 21:00 Folate PO 10/29/18 20:59 HS [facility] Hydralazine HCl 100 mg 08/30/18 14:00 Apresoline PO 10/29/18 13:59 TID [facility] Ceftriaxone Sodium 1 gm/ 50 mls @ 100 mls/hr 08/30/18 12:00 08/30/18 13:42 Sodium Chloride IV 10/29/18 11:59 100 mls/hr Q24H [facility] Administration Azithromycin 250 mg/ Sodium 250 mls @ 250 mls/hr 08/30/18 13:00 08/30/18 13: 51 Chloride IV 10/29/18 12:59 250 mls/hr Q24H [facility] Administration Miscellaneous 30 ml 08/30/18 14:00 Amino Acids/Protein Hydrolys [Pro-Stat Sugar Free Liquid Pkt] PO 10/29/18 13 :59 TID [facility] Miscellaneous 25 mcg 08/30/18 10:00 Darbepoetin Pedro In Polysorbat [Aranesp] IJ 10/29/18 09:59 QMON [facility] Morphine Sulfate 1 mg 08/30/18 11:41 Morphine IVP 10/29/18 11:40 Q4H PRN Pain (Moderate) Morphine Sulfate 2 mg 08/30/18 11:44 08/30/18 12:22 Morphine IVP 10/29/18 11:43 2 mg Q4H PRN Administration Pain (Severe) Ondansetron HCl 4 mg 08/30/18 03:15 08/30/18 03:31 Zofran Odt PO 10/29/18 03:14 4 mg Q6H PRN Administration Nausea / Vomiting Review of Systems: A 12 point ROS was reviewed with the pertinent positive and negatives noted in the HPI. Social History Smoking Status Unknown if ever smoked Family Medical History Family Medical History Start: 08/30/18 02: 07 Freq: ONCE Status: Active Protocol: Document 08/30/18 02:07 JB (Rec: 08/30/18 03:58 JB [id number]) Family Medical History Mother History Unknown Yes Physical Exam: General: somewhat cachectic male alert but uncooperative at times in NAD HEENT: PERRLA Neck: Supple Cardio: RR&R Respiratory: Few rhonchi scattered b/l Abdominal: sot nontender. Genital/Urinary: deferred Extremities: left sided weakness Neurological: left hemiparesis Assessment: ESRD,Hemiparesis due to head injury by history,anemia of ckd.DM,HTN Admitted with Pneumonia Plan: GHemodialysis TTHSAT Schedule and PRN Nicoderm patch per pt's request. Signed, Cam Watson [id number]
[2018-08-30] MEDS: Nicotine 21 mg/24 hr Tdm TD SCH (17:47)
[2018-08-30] MEDS: Atorvastatin Calcium 10 MG TAB PO SCH (21:23)
[2018-08-31] MEDS: Morphine Sulfate 2 mg/mL 1mL Syr IVP PRN ×3 (00:10→20:33)
[2018-08-31 07:13] LABS: URINE SOURCE CLEAN C
[2018-08-31 07:25] LABS: URINE BILIRUBIN NEGATIVE (NEGATIVE); URINE BLOOD TRACE (NEGATIVE); URINE GLUCOSE (UA) 100 mg/dL (NEGATIVE); URINE KETONE NEGATIVE (NEGATIVE); URINE LEUKOCYTE ESTERASE MODERATE (NEGATIVE); URINE MICROSCOPIC INDICATED? YES; URINE NITRATE NEGATIVE (NEGATIVE); URINE PROTEIN 100 mg/dL (NEGATIVE); URINE UROBILINOGEN 0.2 E.U./dL (0.2 - 1.0)
[2018-08-31 07:41] LABS: URINE CLARITY HAZY (CLEAR); URINE COLOR YELLOW; URINE EPITHELIAL CELLS NONE SEEN /lpf (FEW)
[2018-08-31 07:42] LABS: URINE BACTERIA FEW /hpf (NONE SEEN)
[2018-08-31] MEDS: Nicotine 21 mg/24 hr Tdm TD SCH (09:21)
[2018-08-31] MEDS: Hydrocodone/APAP 5mg/325mg Tab PO PRN (10:43)
[2018-08-31 11:04] LABS: % BASOPHILS 1.2 % (0.0-2.0); % EOSINOPHILS 2.9 % (0.0-5.0); % LYMPHOCYTES 12.3 % (20.0-50.0); % MONOCYTES 7.9 % (2.0-10.0); % NEUTROPHILS 75.7 % (40.0-80.0); BASOPHILE ABSOLUTE 0.1 Th/cumm (0-0.2); EOSINOPHILE ABSOLUTE 0.2 Th/cmm (0.1-0.4); HEMATOCRIT 25.3 % (41.0-60); HEMOGLOBIN 8.6 gm/dL (12-16); LYMPHOCYTE ABSOLUTE 0.8 Th/cmm (1.5-3.0); MEAN CELL VOLUME 99.2 fl (80-99); MEAN CORPUSCULAR HEMOGLOBIN 33.6 pg (26.0-30.0); MEAN CORPUSCULAR HGB CONC 33.9 pg (28.0-36.0); MEAN PLATELET VOLUME 7.7 fl; MONOCYTE ABSOLUTE 0.5 Th/cmm (0.3-1.0); NEUTROPHILE ABSOLUTE 4.7 Th/cmm (1.8-8.0); PLATELET COUNT 241 Th/cmm (150-400); RED BLOOD COUNT 2.55 Mil/cmm (4.30-5.70); RED CELL DISTRIBUTION WIDTH 15.1 % (11.5-20.0); WHITE BLOOD COUNT 6.3 Th/cmm (4.8-10.8)
[2018-08-31 11:30] LABS: INR 1.04 (0.5-1.4); PROTHROMBIN TIME (TEST) 10.8 SECONDS (9.5-11.5)
[2018-08-31 11:34] LABS: ALB/GLOB RATIO 0.7 (1.0-1.8); ALBUMIN 2.8 gm/dL (4.2-5.5); ANION GAP 15.8 (7.0-16.0); BILIRUBIN,TOTAL 0.4 mg/dL (0.3-1.0); CARBON DIOXIDE 28.1 mEq/L (21.0-31.0); GFR AFRICAN-AMERICAN 10.8 ml/min (>90); GFR NON AFRICAN-AMERICAN 8.9 ml/min; POTASSIUM SERUM 4.9 mEq/L (3.5-5.1); TOTAL PROTEIN,SERUM 6.7 gm/dL (6.0-8.3)
[2018-08-31] MEDS: cefTRIAXone 1 GM in 0.9% NS 50 ML IV SCH (11:59)
--- NOTE | 2018-08-31 14:52 | Internal Medicine Prog Note ---
Internal Medicine Subjective - Subjective Service Date: 08/31/18 Patient seen and examined:: with staff Patient is:: awake Per staff patient has:: tolerating meds Internal Medicine Objective - Results Result Diagrams: 08/31/18 10:56 08/31/18 10:56 Recent Labs: Laboratory Last Values WBC 6.3 Th/cmm (4.8-10.8) 08/31/18 10:56 RBC 2.55 Mil/cmm (4.30-5.70) L 08/31/18 10:56 Hgb 8.6 gm/dL (12-16) L 08/31/18 10:56 Hct 25.3 % (41.0-60) L 08/31/18 10:56 MCV 99.2 fl (80-99) H 08/31/18 10:56 MCH 33.6 pg (26.0-30.0) H 08/31/18 10:56 MCHC Differential 33.9 pg (28.0-36.0) 08/31/18 10:56 RDW 15.1 % (11.5-20.0) 08/31/18 10:56 Plt Count 241 Th/cmm (150-400) 08/31/18 10:56 MPV 7.7 fl 08/31/18 10:56 Neutrophils % 75.7 % (40.0-80.0) 08/31/18 10:56 Lymphocytes % 12.3 % (20.0-50.0) L 08/31/18 10:56 Monocytes % 7.9 % (2.0-10.0) 08/31/18 10:56 Eosinophils % 2.9 % (0.0-5.0) 08/31/18 10:56 Basophils % 1.2 % (0.0-2.0) 08/31/18 10:56 PT 10.8 SECONDS (9.5-11.5) 08/31/18 10:56 INR 1.04 (0.5-1.4) 08/31/18 10:56 Sodium 134 mEq/L (136-145) L 08/31/18 10:56 Potassium 4.9 mEq/L (3.5-5.1) 08/31/18 10:56 Chloride 95 mEq/L (98-107) L 08/31/18 10:56 Carbon Dioxide 28.1 mEq/L (21.0-31.0) 08/31/18 10:56 Anion Gap 15.8 (7.0-16.0) 08/31/18 10:56 BUN 72 mg/dL (7-25) H 08/31/18 10:56 Creatinine 7.0 mg/dL (0.7-1.3) H* 08/31/18 10:56 Est GFR ( Amer) 10.8 ml/min (>90) 08/31/18 10:56 Est GFR (Non-Af Amer) 8.9 ml/min 08/31/18 10:56 BUN/Creatinine Ratio 10.3 08/31/18 10:56 Glucose 84 mg/dL (70-105) 08/31/18 10:56 POC Glucose 77 MG/DL (70 - 105) 08/30/18 06:16 Calcium 9.0 mg/dL (8.6-10.3) 08/31/18 10:56 Total Bilirubin 0.4 mg/dL (0.3-1.0) 08/31/18 10:56 AST 10 U/L (13-39) L 08/31/18 10:56 ALT 6 U/L (7-52) L 08/31/18 10:56 Alkaline Phosphatase 72 U/L (34-104) 08/31/18 10:56 Total Protein 6.7 gm/dL (6.0-8.3) 08/31/18 10:56 Albumin 2.8 gm/dL (4.2-5.5) L 08/31/18 10:56 Globulin 3.9 gm/dL 08/31/18 10:56 Albumin/Globulin Ratio 0.7 (1.0-1.8) L 08/31/18 10:56 Urine Source CLEAN C 08/31/18 05:50 Urine Color YELLOW 08/31/18 05:50 Urine Clarity HAZY (CLEAR) 08/31/18 05:50 Urine pH 7.0 (4.6 - 8.0) 08/31/18 05:50 Ur Specific [place] 1.015 (1.005-1.030) 08/31/18 05:50 Urine Protein 100 mg/dL (NEGATIVE) H 08/31/18 05:50 Urine Glucose (UA) 100 mg/dL (NEGATIVE) H 08/31/18 05:50 Urine Ketones NEGATIVE mg/dL (NEGATIVE) 08/31/18 05:50 Urine Blood TRACE (NEGATIVE) 08/31/18 05:50 Urine Nitrate NEGATIVE (NEGATIVE) 08/31/18 05:50 Urine Bilirubin NEGATIVE (NEGATIVE) 08/31/18 05:50 Urine Urobilinogen 0.2 E.U./dL (0.2 - 1.0) 08/31/18 05:50 Ur Leukocyte Esterase MODERATE (NEGATIVE) H 08/31/18 05:50 Urine RBC 5-10 /hpf (0-5) H 08/31/18 05:50 Urine WBC 2-5 /hpf (0-5) 08/31/18 05:50 Ur Epithelial Cells NONE SEEN /lpf (FEW) 08/31/18 05:50 Urine Bacteria FEW /hpf (NONE SEEN) 08/31/18 05:50 - Physical Exam Vitals and I&O: Vital Signs Temp 97.3 F 08/31/18 12:00 Pulse 68 08/31/18 14:23 Resp 18 08/31/18 12:00 BP 126/80 08/31/18 14:23 Pulse Ox 97 08/31/18 12:00 Intake & Output 08/30/18 08/31/18 08/31/18 18:59 06:59 18:59 Intake Total 700 400 Output Total 100 Balance 700 300 Weight (lbs) 135 lb 135 lb Intake: Intake, IV Amount 300 Azithromycin 250 mg In 250 Sodium Chloride 0.9% 250 ml @ 250 mls/hr IV Q24H [facility] Rx#:[id number] cefTRIAXone 1 gm In 50 Sodium Chloride 0.9% 50 ml @ 100 mls/hr IV Q24H [facility] Rx#:[id number] Oral 400 400 Output: Urine 100 Other: # Voids 2 Weight Source Bedscale Bedscale Active Medications: Current Medications Acetaminophen/Hydrocodone Bitart ([place] 5mg/325mg) 1 tab PO Q6H PRN PRN Reason: Pain (Moderate) Stop: 10/29/18 09:48 Last Admin: 08/31/18 10:43 Dose: 1 tab Aspirin (Ecotrin) 81 mg PO DAILY [facility] Stop: 10/30/18 08:59 Last Admin: 08/31/18 08:53 Dose: Not Given Atorvastatin Calcium (Lipitor) 10 mg PO HS [facility]; Protocol Stop: 10/29/18 20:59 Last Admin: 08/30/18 21:23 Dose: Not Given Cholecalciferol (Vitamin D3) 1,000 iu PO DAILY [facility] Stop: 10/30/18 08:59 Last Admin: 08/31/18 09:20 Dose: Not Given Clonazepam (Klonopin) 1 mg PO Q12HR [facility]; Protocol Stop: 10/29/18 20:59 Diphenhydramine HCl (Benadryl) 50 mg PO TID PRN PRN Reason: Itching Stop: 10/29/18 09:47 Last Admin: 08/31/18 00:10 Dose: 50 mg Diphenhydramine HCl (Benadryl 50 Mg/Ml) 50 mg IVP Q6HR PRN PRN Reason: Dialysis Stop: 10/30/18 10:32 Last Admin: 08/31/18 10:43 Dose: 50 mg Docusate Sodium (Colace) 100 mg PO DAILY [facility] Stop: 10/30/18 08:59 Last Admin: 08/31/18 08:54 Dose: Not Given Folic Acid (Folate) 1 mg PO HS [facility] Stop: 10/29/18 20:59 Last Admin: 08/30/18 21:23 Dose: Not Given Hydralazine HCl (Apresoline) 100 mg PO TID [facility] Stop: 10/29/18 13:59 Last Admin: 08/31/18 14:23 Dose: Not Given Ceftriaxone Sodium 1 gm/ (Sodium Chloride) 50 mls @ 100 mls/hr IV Q24H [facility] Stop: 10/29/18 11:59 Last Admin: 08/31/18 11:59 Dose: 100 mls/hr Azithromycin 250 mg/ Sodium (Chloride) 250 mls @ 250 mls/hr IV Q24H [facility] Stop: 10/29/18 12:59 Last Infusion: 08/30/18 17:02 Dose: Infused Miscellaneous (Darbepoetin Pedro In Polysorbat [Aranesp]) 25 mcg IJ QMON [facility] Stop: 10/29/18 09:59 Morphine Sulfate (Morphine) 1 mg IVP Q4H PRN PRN Reason: Pain (Moderate) Stop: 10/29/18 11:40 Morphine Sulfate (Morphine) 2 mg IVP Q4H PRN PRN Reason: Pain (Severe) Stop: 10/29/18 11:43 Last Admin: 08/31/18 05:49 Dose: 2 mg Nicotine (Nicotine Transdermal System) 21 mg TD DAILY [facility] Stop: 10/29/18 16:59 Last Admin: 08/31/18 09:21 Dose: 21 mg Ondansetron HCl (Zofran Odt) 4 mg PO Q6H PRN PRN Reason: Nausea / Vomiting Stop: 10/29/18 03:14 Last Admin: 08/30/18 03:31 Dose: 4 mg General: weak HEENT: NC/AT, PERRLA Neck: Supple Lungs: CTAB Cardiovascular: without murmur Abdomen: soft, non-tender, non-distended, positive bowel sound - Procedures Procedures: Procedures Procedure Code Date PERFORMANCE OF URINARY FILTRATION, <6 HRS/DAY [id number] 08/20/18 TRANSFUSE NONAUT RED BLOOD CELLS IN PERIPH VEIN, PERC 21719H8 08/20/18 Internal Medicine Assmt/Plan - Assessment Assessment: Pneumonia. ESRD stage 5, On Hemodialysis. Diabetes Mellitus. Schizophrenia. CHF. Anemia of chronic disease. BPH. Old [place]. Muscle weakness. AV shunt in right arm. - Plan Plan: IVABX AM LABS ASPIRATION PRECAUTIONS CONTINUE CURRENT PLAN OF CARE
[2018-08-31] MEDS: NS 0.9% IV SCH (16:03)
[2018-08-31] MEDS: AZITHROMYCIN IV SCH (16:03)
[2018-08-31] MEDS ORDERED: Probiotic Screen MC PRN (17:15)
--- NOTE | 2018-08-31 17:37 | General Progress Note ---
Subjective - Review of Systems Service Date: 08/31/18 Events since last encounter: no acute events Subjective: feels ok Objective - Results Result Diagrams: 08/31/18 10:56 08/31/18 10:56 Recent Labs: Laboratory Last Values WBC 6.3 Th/cmm (4.8-10.8) 08/31/18 10:56 RBC 2.55 Mil/cmm (4.30-5.70) L 08/31/18 10:56 Hgb 8.6 gm/dL (12-16) L 08/31/18 10:56 Hct 25.3 % (41.0-60) L 08/31/18 10:56 MCV 99.2 fl (80-99) H 08/31/18 10:56 MCH 33.6 pg (26.0-30.0) H 08/31/18 10:56 MCHC Differential 33.9 pg (28.0-36.0) 08/31/18 10:56 RDW 15.1 % (11.5-20.0) 08/31/18 10:56 Plt Count 241 Th/cmm (150-400) 08/31/18 10:56 MPV 7.7 fl 08/31/18 10:56 Neutrophils % 75.7 % (40.0-80.0) 08/31/18 10:56 Lymphocytes % 12.3 % (20.0-50.0) L 08/31/18 10:56 Monocytes % 7.9 % (2.0-10.0) 08/31/18 10:56 Eosinophils % 2.9 % (0.0-5.0) 08/31/18 10:56 Basophils % 1.2 % (0.0-2.0) 08/31/18 10:56 PT 10.8 SECONDS (9.5-11.5) 08/31/18 10:56 INR 1.04 (0.5-1.4) 08/31/18 10:56 Sodium 134 mEq/L (136-145) L 08/31/18 10:56 Potassium 4.9 mEq/L (3.5-5.1) 08/31/18 10:56 Chloride 95 mEq/L (98-107) L 08/31/18 10:56 Carbon Dioxide 28.1 mEq/L (21.0-31.0) 08/31/18 10:56 Anion Gap 15.8 (7.0-16.0) 08/31/18 10:56 BUN 72 mg/dL (7-25) H 08/31/18 10:56 Creatinine 7.0 mg/dL (0.7-1.3) H* 08/31/18 10:56 Est GFR ( Amer) 10.8 ml/min (>90) 08/31/18 10:56 Est GFR (Non-Af Amer) 8.9 ml/min 08/31/18 10:56 BUN/Creatinine Ratio 10.3 08/31/18 10:56 Glucose 84 mg/dL (70-105) 08/31/18 10:56 POC Glucose 77 MG/DL (70 - 105) 08/30/18 06:16 Calcium 9.0 mg/dL (8.6-10.3) 08/31/18 10:56 Total Bilirubin 0.4 mg/dL (0.3-1.0) 08/31/18 10:56 AST 10 U/L (13-39) L 08/31/18 10:56 ALT 6 U/L (7-52) L 08/31/18 10:56 Alkaline Phosphatase 72 U/L (34-104) 08/31/18 10:56 Total Protein 6.7 gm/dL (6.0-8.3) 08/31/18 10:56 Albumin 2.8 gm/dL (4.2-5.5) L 08/31/18 10:56 Globulin 3.9 gm/dL 08/31/18 10:56 Albumin/Globulin Ratio 0.7 (1.0-1.8) L 08/31/18 10:56 Urine Source CLEAN C 08/31/18 05:50 Urine Color YELLOW 08/31/18 05:50 Urine Clarity HAZY (CLEAR) 08/31/18 05:50 Urine pH 7.0 (4.6 - 8.0) 08/31/18 05:50 Ur Specific [place] 1.015 (1.005-1.030) 08/31/18 05:50 Urine Protein 100 mg/dL (NEGATIVE) H 08/31/18 05:50 Urine Glucose (UA) 100 mg/dL (NEGATIVE) H 08/31/18 05:50 Urine Ketones NEGATIVE mg/dL (NEGATIVE) 08/31/18 05:50 Urine Blood TRACE (NEGATIVE) 08/31/18 05:50 Urine Nitrate NEGATIVE (NEGATIVE) 08/31/18 05:50 Urine Bilirubin NEGATIVE (NEGATIVE) 08/31/18 05:50 Urine Urobilinogen 0.2 E.U./dL (0.2 - 1.0) 08/31/18 05:50 Ur Leukocyte Esterase MODERATE (NEGATIVE) H 08/31/18 05:50 Urine RBC 5-10 /hpf (0-5) H 08/31/18 05:50 Urine WBC 2-5 /hpf (0-5) 08/31/18 05:50 Ur Epithelial Cells NONE SEEN /lpf (FEW) 08/31/18 05:50 Urine Bacteria FEW /hpf (NONE SEEN) 08/31/18 05:50 - Physical Exam Vitals and I&O: Vital Signs Temp 98.2 F 08/31/18 16:00 Pulse 69 08/31/18 16:00 Resp 18 08/31/18 16:00 BP 147/86 08/31/18 16:00 Pulse Ox 100 08/31/18 16:00 Intake & Output 08/30/18 08/31/18 08/31/18 18:59 06:59 18:59 Intake Total 700 400 Output Total 100 Balance 700 300 Weight (lbs) 61.235 kg 61.235 kg Intake: Intake, IV Amount 300 Azithromycin 250 mg In 250 Sodium Chloride 0.9% 250 ml @ 250 mls/hr IV Q24H [facility] Rx#:[id number] cefTRIAXone 1 gm In 50 Sodium Chloride 0.9% 50 ml @ 100 mls/hr IV Q24H [facility] Rx#:[id number] Oral 400 400 Output: Urine 100 Other: # Voids 2 Weight Source Bedscale Bedscale Active Medications: Current Medications Acetaminophen/Hydrocodone Bitart ([place] 5mg/325mg) 1 tab PO Q6H PRN PRN Reason: Pain (Moderate) Stop: 10/29/18 09:48 Last Admin: 08/31/18 10:43 Dose: 1 tab Aspirin (Ecotrin) 81 mg PO DAILY [facility] Stop: 10/30/18 08:59 Last Admin: 08/31/18 08:53 Dose: Not Given Atorvastatin Calcium (Lipitor) 10 mg PO HS [facility]; Protocol Stop: 10/29/18 20:59 Last Admin: 08/30/18 21:23 Dose: Not Given Cholecalciferol (Vitamin D3) 1,000 iu PO DAILY [facility] Stop: 10/30/18 08:59 Last Admin: 08/31/18 09:20 Dose: Not Given Clonazepam (Klonopin) 1 mg PO Q12HR [facility]; Protocol Stop: 10/29/18 20:59 Diphenhydramine HCl (Benadryl) 50 mg PO TID PRN PRN Reason: Itching Stop: 10/29/18 09:47 Last Admin: 08/31/18 00:10 Dose: 50 mg Diphenhydramine HCl (Benadryl 50 Mg/Ml) 50 mg IVP Q6HR PRN PRN Reason: Dialysis Stop: 10/30/18 10:32 Last Admin: 08/31/18 10:43 Dose: 50 mg Docusate Sodium (Colace) 100 mg PO DAILY [facility] Stop: 10/30/18 08:59 Last Admin: 08/31/18 08:54 Dose: Not Given Folic Acid (Folate) 1 mg PO HS [facility] Stop: 10/29/18 20:59 Last Admin: 08/30/18 21:23 Dose: Not Given Hydralazine HCl (Apresoline) 100 mg PO TID [facility] Stop: 10/29/18 13:59 Last Admin: 08/31/18 14:23 Dose: Not Given Ceftriaxone Sodium 1 gm/ (Sodium Chloride) 50 mls @ 100 mls/hr IV Q24H [facility] Stop: 10/29/18 11:59 Last Admin: 08/31/18 11:59 Dose: 100 mls/hr Azithromycin 250 mg/ Sodium (Chloride) 250 mls @ 250 mls/hr IV Q24H [facility] Stop: 10/29/18 12:59 Last Admin: 08/31/18 16:03 Dose: 250 mls/hr Lactobacillus Rhamnosus (Culturelle 15b) 1 each PO DAILY [facility] Stop: 10/31/18 08:59 Miscellaneous (Darbepoetin Pedro In Polysorbat [Aranesp]) 25 mcg IJ QMON [facility] Stop: 10/29/18 09:59 Miscellaneous (Probiotic Screen) 1 ea MC PRN PRN PRN Reason: PROTOCOL Stop: 10/30/18 17:14 Morphine Sulfate (Morphine) 1 mg IVP Q4H PRN PRN Reason: Pain (Moderate) Stop: 10/29/18 11:40 Morphine Sulfate (Morphine) 2 mg IVP Q4H PRN PRN Reason: Pain (Severe) Stop: 10/29/18 11:43 Last Admin: 08/31/18 05:49 Dose: 2 mg Nicotine (Nicotine Transdermal System) 21 mg TD DAILY [facility] Stop: 10/29/18 16:59 Last Admin: 08/31/18 09:21 Dose: 21 mg Ondansetron HCl (Zofran Odt) 4 mg PO Q6H PRN PRN Reason: Nausea / Vomiting Stop: 10/29/18 03:14 Last Admin: 08/30/18 03:31 Dose: 4 mg - Procedures Procedures: Procedures Procedure Code Date PERFORMANCE OF URINARY FILTRATION, <6 HRS/DAY [id number] 08/20/18 TRANSFUSE NONAUT RED BLOOD CELLS IN PERIPH VEIN, PERC 98771K6 08/20/18 Assessment/Plan - Assessment Assessment: esrd with dialysis status anemia w esrd pneumonia chf schizophrenia dm w esrd - Plan Plan: cont abx hd tts schedule supportive mgmt
[2018-08-31] MEDS: Atorvastatin Calcium 10 MG TAB PO SCH (20:39)
[2018-09-01] MEDS: Morphine Sulfate 2 mg/mL 1mL Syr IVP PRN ×3 (01:55→20:20)
[2018-09-01 06:36] LABS: % BASOPHILS 1.1 % (0.0-2.0); % EOSINOPHILS 3.4 % (0.0-5.0); % LYMPHOCYTES 17.9 % (20.0-50.0); % MONOCYTES 9.8 % (2.0-10.0); % NEUTROPHILS 67.8 % (40.0-80.0); BASOPHILE ABSOLUTE 0.1 Th/cumm (0-0.2); EOSINOPHILE ABSOLUTE 0.2 Th/cmm (0.1-0.4); HEMATOCRIT 26.4 % (41.0-60); HEMOGLOBIN 8.8 gm/dL (12-16); LYMPHOCYTE ABSOLUTE 0.9 Th/cmm (1.5-3.0); MEAN CELL VOLUME 99.5 fl (80-99); MEAN CORPUSCULAR HEMOGLOBIN 33.1 pg (26.0-30.0); MEAN CORPUSCULAR HGB CONC 33.2 pg (28.0-36.0); MEAN PLATELET VOLUME 7.9 fl; MONOCYTE ABSOLUTE 0.5 Th/cmm (0.3-1.0); NEUTROPHILE ABSOLUTE 3.5 Th/cmm (1.8-8.0); PLATELET COUNT 255 Th/cmm (150-400); RED BLOOD COUNT 2.65 Mil/cmm (4.30-5.70); RED CELL DISTRIBUTION WIDTH 14.9 % (11.5-20.0); WHITE BLOOD COUNT 5.2 Th/cmm (4.8-10.8)
[2018-09-01] MEDS: Nicotine 21 mg/24 hr Tdm TD SCH (09:00)
[2018-09-01 09:12] LABS: ANION GAP 16.2 (7.0-16.0); CALCIUM SERUM 9.7 mg/dL (8.6-10.3); GFR AFRICAN-AMERICAN 10.8 ml/min (>90); GFR NON AFRICAN-AMERICAN 8.9 ml/min; POTASSIUM SERUM 5.2 mEq/L (3.5-5.1)
[2018-09-01] MEDS: Lactobacillus Rhamnosus GG 15 Billion CFU CAP.SPRINK PO SCH (10:25)
[2018-09-01] MEDS: cefTRIAXone 1 GM in 0.9% NS 50 ML IV SCH (12:56)
--- NOTE | 2018-09-01 13:34 | Infectious Disease Prog Note ---
Infectious Disease Subjective - Review of Systems Service Date: 09/01/18 Subjective: there is no new change, no fever. Infectious Disease Objective - Results Result Diagrams: 09/01/18 05:00 09/01/18 08:45 Recent Labs: Laboratory Last Values WBC 5.2 Th/cmm (4.8-10.8) 09/01/18 05:00 RBC 2.65 Mil/cmm (4.30-5.70) L 09/01/18 05:00 Hgb 8.8 gm/dL (12-16) L 09/01/18 05:00 Hct 26.4 % (41.0-60) L 09/01/18 05:00 MCV 99.5 fl (80-99) H 09/01/18 05:00 MCH 33.1 pg (26.0-30.0) H 09/01/18 05:00 MCHC Differential 33.2 pg (28.0-36.0) 09/01/18 05:00 RDW 14.9 % (11.5-20.0) 09/01/18 05:00 Plt Count 255 Th/cmm (150-400) 09/01/18 05:00 MPV 7.9 fl 09/01/18 05:00 Neutrophils % 67.8 % (40.0-80.0) 09/01/18 05:00 Lymphocytes % 17.9 % (20.0-50.0) L 09/01/18 05:00 Monocytes % 9.8 % (2.0-10.0) 09/01/18 05:00 Eosinophils % 3.4 % (0.0-5.0) 09/01/18 05:00 Basophils % 1.1 % (0.0-2.0) 09/01/18 05:00 PT 10.8 SECONDS (9.5-11.5) 08/31/18 10:56 INR 1.04 (0.5-1.4) 08/31/18 10:56 Sodium 133 mEq/L (136-145) L 09/01/18 08:45 Potassium 5.2 mEq/L (3.5-5.1) H 09/01/18 08:45 Chloride 94 mEq/L (98-107) L 09/01/18 08:45 Carbon Dioxide 28.0 mEq/L (21.0-31.0) 09/01/18 08:45 Anion Gap 16.2 (7.0-16.0) H 09/01/18 08:45 BUN 67 mg/dL (7-25) H 09/01/18 08:45 Creatinine 7.0 mg/dL (0.7-1.3) H* 09/01/18 08:45 Est GFR ( Amer) 10.8 ml/min (>90) 09/01/18 08:45 Est GFR (Non-Af Amer) 8.9 ml/min 09/01/18 08:45 BUN/Creatinine Ratio 9.6 09/01/18 08:45 Glucose 102 mg/dL (70-105) 09/01/18 08:45 POC Glucose 77 MG/DL (70 - 105) 08/30/18 06:16 Calcium 9.7 mg/dL (8.6-10.3) 09/01/18 08:45 Total Bilirubin 0.4 mg/dL (0.3-1.0) 08/31/18 10:56 AST 10 U/L (13-39) L 08/31/18 10:56 ALT 6 U/L (7-52) L 08/31/18 10:56 Alkaline Phosphatase 72 U/L (34-104) 08/31/18 10:56 Total Protein 6.7 gm/dL (6.0-8.3) 08/31/18 10:56 Albumin 2.8 gm/dL (4.2-5.5) L 08/31/18 10:56 Globulin 3.9 gm/dL 08/31/18 10:56 Albumin/Globulin Ratio 0.7 (1.0-1.8) L 08/31/18 10:56 Urine Source CLEAN C 08/31/18 05:50 Urine Color YELLOW 08/31/18 05:50 Urine Clarity HAZY (CLEAR) 08/31/18 05:50 Urine pH 7.0 (4.6 - 8.0) 08/31/18 05:50 Ur Specific [place] 1.015 (1.005-1.030) 08/31/18 05:50 Urine Protein 100 mg/dL (NEGATIVE) H 08/31/18 05:50 Urine Glucose (UA) 100 mg/dL (NEGATIVE) H 08/31/18 05:50 Urine Ketones NEGATIVE mg/dL (NEGATIVE) 08/31/18 05:50 Urine Blood TRACE (NEGATIVE) 08/31/18 05:50 Urine Nitrate NEGATIVE (NEGATIVE) 08/31/18 05:50 Urine Bilirubin NEGATIVE (NEGATIVE) 08/31/18 05:50 Urine Urobilinogen 0.2 E.U./dL (0.2 - 1.0) 08/31/18 05:50 Ur Leukocyte Esterase MODERATE (NEGATIVE) H 08/31/18 05:50 Urine RBC 5-10 /hpf (0-5) H 08/31/18 05:50 Urine WBC 2-5 /hpf (0-5) 08/31/18 05:50 Ur Epithelial Cells NONE SEEN /lpf (FEW) 08/31/18 05:50 Urine Bacteria FEW /hpf (NONE SEEN) 08/31/18 05:50 - Physical Exam Vitals and I&O: Vital Signs Temp 98.3 F 09/01/18 11:20 Pulse 72 09/01/18 11:20 Resp 18 09/01/18 11:20 BP 143/79 09/01/18 11:20 Pulse Ox 100 09/01/18 11:20 Intake & Output 08/31/18 09/01/18 09/01/18 18:59 06:59 18:59 Intake Total 110 Output Total 60 Balance 50 Weight (lbs) 61.235 kg 61.734 kg Intake: Intake, IV Amount 50 cefTRIAXone 1 gm In 50 Sodium Chloride 0.9% 50 ml @ 100 mls/hr IV Q24H [facility] Rx#:[id number] Oral 60 Output: Urine 60 Other: # Voids 2 1 # Bowel Movements 1 0 Weight Source Bedscale Bedscale Active Medications: Current Medications Acetaminophen/Hydrocodone Bitart ([place] 5mg/325mg) 1 tab PO Q6H PRN PRN Reason: Pain (Moderate) Stop: 10/29/18 09:48 Last Admin: 08/31/18 10:43 Dose: 1 tab Aspirin (Ecotrin) 81 mg PO DAILY [facility] Stop: 10/30/18 08:59 Last Admin: 09/01/18 10:24 Dose: Not Given Atorvastatin Calcium (Lipitor) 10 mg PO HS [facility]; Protocol Stop: 10/29/18 20:59 Last Admin: 08/31/18 20:39 Dose: Not Given Cholecalciferol (Vitamin D3) 1,000 iu PO DAILY [facility] Stop: 10/30/18 08:59 Last Admin: 09/01/18 10:24 Dose: Not Given Clonazepam (Klonopin) 1 mg PO Q12HR [facility]; Protocol Stop: 10/29/18 20:59 Last Admin: 09/01/18 10:24 Dose: Not Given Diphenhydramine HCl (Benadryl) 50 mg PO TID PRN PRN Reason: Itching Stop: 10/29/18 09:47 Last Admin: 08/31/18 22:42 Dose: 50 mg Diphenhydramine HCl (Benadryl 50 Mg/Ml) 50 mg IVP Q6HR PRN PRN Reason: Itching Stop: 10/30/18 10:32 Last Admin: 09/01/18 13:02 Dose: 50 mg Docusate Sodium (Colace) 100 mg PO DAILY [facility] Stop: 10/30/18 08:59 Last Admin: 09/01/18 10:24 Dose: Not Given Folic Acid (Folate) 1 mg PO HS [facility] Stop: 10/29/18 20:59 Last Admin: 08/31/18 20:39 Dose: Not Given Hydralazine HCl (Apresoline) 100 mg PO TID [facility] Stop: 10/29/18 13:59 Last Admin: 09/01/18 10:24 Dose: Not Given Ceftriaxone Sodium 1 gm/ (Sodium Chloride) 50 mls @ 100 mls/hr IV Q24H [facility] Stop: 10/29/18 11:59 Last Admin: 09/01/18 12:56 Dose: 100 mls/hr Azithromycin 250 mg/ Sodium (Chloride) 250 mls @ 250 mls/hr IV Q24H [facility] Stop: 10/29/18 12:59 Last Admin: 08/31/18 16:03 Dose: 250 mls/hr Lactobacillus Rhamnosus (Culturelle 15b) 1 each PO DAILY [facility] Stop: 10/31/18 08:59 Last Admin: 09/01/18 10:25 Dose: Not Given Miscellaneous (Darbepoetin Pedro In Polysorbat [Aranesp]) 25 mcg IJ QMON [facility] Stop: 10/29/18 09:59 Miscellaneous (Probiotic Screen) 1 ea MC PRN PRN PRN Reason: PROTOCOL Stop: 10/30/18 17:14 Morphine Sulfate (Morphine) 1 mg IVP Q4H PRN PRN Reason: Pain (Moderate) Stop: 10/29/18 11:40 Morphine Sulfate (Morphine) 2 mg IVP Q4H PRN PRN Reason: Pain (Severe) Stop: 10/29/18 11:43 Last Admin: 09/01/18 09:00 Dose: 2 mg Nicotine (Nicotine Transdermal System) 21 mg TD DAILY [facility] Stop: 10/29/18 16:59 Last Admin: 09/01/18 09:00 Dose: 21 mg Ondansetron HCl (Zofran Odt) 4 mg PO Q6H PRN PRN Reason: Nausea / Vomiting Stop: 10/29/18 03:14 Last Admin: 08/30/18 03:31 Dose: 4 mg General: no acute distress, well developed, well nourished HEENT: atraumatic, normocephalic, PERRLA, EOMI Neck: supple, no thyromegaly Cardiovascular: S1S2, regular Lungs: clear to auscultation bilaterally Abdomen: soft, no tender Extremities: no cyanosis, no clubbing, no edema Neurological: awake, alert, oriented - Procedures Procedures: Procedures Procedure Code Date PERFORMANCE OF URINARY FILTRATION, <6 HRS/DAY [id number] 08/20/18 TRANSFUSE NONAUT RED BLOOD CELLS IN PERIPH VEIN, PERC 72745A6 08/20/18 Infectious Disease Assmt/Plan - Assessment Assessment: 1. Pneumonia. 2. Anemia of chronic disease. 3. History of diabetes mellitus type 2. 4. Hypertension. 5. Chronic kidney disease stage 5. - Plan Plan: continue rocephin iv and zithromax.
[2018-09-01] MEDS: AZITHROMYCIN IV SCH (14:55)
[2018-09-01] MEDS: NS 0.9% IV SCH (14:55)
--- NOTE | 2018-09-01 18:32 | General Progress Note ---
Subjective - Review of Systems Service Date: 09/01/18 Subjective: Patient complains severe itching and wants 50 mg IV benadryl followed by another 50mg Objective - Results Result Diagrams: 09/01/18 05:00 09/01/18 08:45 Recent Labs: Laboratory Last Values WBC 5.2 Th/cmm (4.8-10.8) 09/01/18 05:00 RBC 2.65 Mil/cmm (4.30-5.70) L 09/01/18 05:00 Hgb 8.8 gm/dL (12-16) L 09/01/18 05:00 Hct 26.4 % (41.0-60) L 09/01/18 05:00 MCV 99.5 fl (80-99) H 09/01/18 05:00 MCH 33.1 pg (26.0-30.0) H 09/01/18 05:00 MCHC Differential 33.2 pg (28.0-36.0) 09/01/18 05:00 RDW 14.9 % (11.5-20.0) 09/01/18 05:00 Plt Count 255 Th/cmm (150-400) 09/01/18 05:00 MPV 7.9 fl 09/01/18 05:00 Neutrophils % 67.8 % (40.0-80.0) 09/01/18 05:00 Lymphocytes % 17.9 % (20.0-50.0) L 09/01/18 05:00 Monocytes % 9.8 % (2.0-10.0) 09/01/18 05:00 Eosinophils % 3.4 % (0.0-5.0) 09/01/18 05:00 Basophils % 1.1 % (0.0-2.0) 09/01/18 05:00 PT 10.8 SECONDS (9.5-11.5) 08/31/18 10:56 INR 1.04 (0.5-1.4) 08/31/18 10:56 Sodium 133 mEq/L (136-145) L 09/01/18 08:45 Potassium 5.2 mEq/L (3.5-5.1) H 09/01/18 08:45 Chloride 94 mEq/L (98-107) L 09/01/18 08:45 Carbon Dioxide 28.0 mEq/L (21.0-31.0) 09/01/18 08:45 Anion Gap 16.2 (7.0-16.0) H 09/01/18 08:45 BUN 67 mg/dL (7-25) H 09/01/18 08:45 Creatinine 7.0 mg/dL (0.7-1.3) H* 09/01/18 08:45 Est GFR ( Amer) 10.8 ml/min (>90) 09/01/18 08:45 Est GFR (Non-Af Amer) 8.9 ml/min 09/01/18 08:45 BUN/Creatinine Ratio 9.6 09/01/18 08:45 Glucose 102 mg/dL (70-105) 09/01/18 08:45 POC Glucose 77 MG/DL (70 - 105) 08/30/18 06:16 Calcium 9.7 mg/dL (8.6-10.3) 09/01/18 08:45 Total Bilirubin 0.4 mg/dL (0.3-1.0) 08/31/18 10:56 AST 10 U/L (13-39) L 08/31/18 10:56 ALT 6 U/L (7-52) L 08/31/18 10:56 Alkaline Phosphatase 72 U/L (34-104) 08/31/18 10:56 Total Protein 6.7 gm/dL (6.0-8.3) 08/31/18 10:56 Albumin 2.8 gm/dL (4.2-5.5) L 08/31/18 10:56 Globulin 3.9 gm/dL 08/31/18 10:56 Albumin/Globulin Ratio 0.7 (1.0-1.8) L 08/31/18 10:56 Urine Source CLEAN C 08/31/18 05:50 Urine Color YELLOW 08/31/18 05:50 Urine Clarity HAZY (CLEAR) 08/31/18 05:50 Urine pH 7.0 (4.6 - 8.0) 08/31/18 05:50 Ur Specific [place] 1.015 (1.005-1.030) 08/31/18 05:50 Urine Protein 100 mg/dL (NEGATIVE) H 08/31/18 05:50 Urine Glucose (UA) 100 mg/dL (NEGATIVE) H 08/31/18 05:50 Urine Ketones NEGATIVE mg/dL (NEGATIVE) 08/31/18 05:50 Urine Blood TRACE (NEGATIVE) 08/31/18 05:50 Urine Nitrate NEGATIVE (NEGATIVE) 08/31/18 05:50 Urine Bilirubin NEGATIVE (NEGATIVE) 08/31/18 05:50 Urine Urobilinogen 0.2 E.U./dL (0.2 - 1.0) 08/31/18 05:50 Ur Leukocyte Esterase MODERATE (NEGATIVE) H 08/31/18 05:50 Urine RBC 5-10 /hpf (0-5) H 08/31/18 05:50 Urine WBC 2-5 /hpf (0-5) 08/31/18 05:50 Ur Epithelial Cells NONE SEEN /lpf (FEW) 08/31/18 05:50 Urine Bacteria FEW /hpf (NONE SEEN) 08/31/18 05:50 - Physical Exam Vitals and I&O: Vital Signs Temp 98.4 F 09/01/18 16:00 Pulse 69 09/01/18 16:00 Resp 18 09/01/18 16:00 BP 140/86 09/01/18 16:00 Pulse Ox 100 09/01/18 16:00 Intake & Output 08/31/18 09/01/18 09/01/18 18:59 06:59 18:59 Intake Total 360 60 Output Total 60 Balance 300 60 Weight (lbs) 61.235 kg 61.734 kg 61.689 kg Intake: Intake, IV Amount 300 Azithromycin 250 mg In 250 Sodium Chloride 0.9% 250 ml @ 250 mls/hr IV Q24H [facility] Rx#:[id number] cefTRIAXone 1 gm In 50 Sodium Chloride 0.9% 50 ml @ 100 mls/hr IV Q24H [facility] Rx#:[id number] Oral 60 60 Output: Urine 60 Other: # Voids 2 1 2 # Bowel Movements 1 0 1 Weight Source Bedscale Bedscale Bedscale Active Medications: Current Medications Acetaminophen/Hydrocodone Bitart ([place] 5mg/325mg) 1 tab PO Q6H PRN PRN Reason: Pain (Moderate) Stop: 10/29/18 09:48 Last Admin: 08/31/18 10:43 Dose: 1 tab Aspirin (Ecotrin) 81 mg PO DAILY [facility] Stop: 10/30/18 08:59 Last Admin: 09/01/18 10:24 Dose: Not Given Atorvastatin Calcium (Lipitor) 10 mg PO HS [facility]; Protocol Stop: 10/29/18 20:59 Last Admin: 08/31/18 20:39 Dose: Not Given Cholecalciferol (Vitamin D3) 1,000 iu PO DAILY [facility] Stop: 10/30/18 08:59 Last Admin: 09/01/18 10:24 Dose: Not Given Clonazepam (Klonopin) 1 mg PO Q12HR [facility]; Protocol Stop: 10/29/18 20:59 Last Admin: 09/01/18 10:24 Dose: Not Given Diphenhydramine HCl (Benadryl) 50 mg PO TID PRN PRN Reason: Itching Stop: 10/29/18 09:47 Last Admin: 08/31/18 22:42 Dose: 50 mg Diphenhydramine HCl (Benadryl 50 Mg/Ml) 50 mg IVP Q6HR PRN PRN Reason: Itching Stop: 10/30/18 10:32 Last Admin: 09/01/18 13:02 Dose: 50 mg Docusate Sodium (Colace) 100 mg PO DAILY [facility] Stop: 10/30/18 08:59 Last Admin: 09/01/18 10:24 Dose: Not Given Folic Acid (Folate) 1 mg PO HS [facility] Stop: 10/29/18 20:59 Last Admin: 08/31/18 20:39 Dose: Not Given Hydralazine HCl (Apresoline) 100 mg PO TID [facility] Stop: 10/29/18 13:59 Last Admin: 09/01/18 14:59 Dose: 100 mg Ceftriaxone Sodium 1 gm/ (Sodium Chloride) 50 mls @ 100 mls/hr IV Q24H [facility] Stop: 10/29/18 11:59 Last Admin: 09/01/18 12:56 Dose: 100 mls/hr Azithromycin 250 mg/ Sodium (Chloride) 250 mls @ 250 mls/hr IV Q24H [facility] Stop: 10/29/18 12:59 Last Admin: 09/01/18 14:55 Dose: 250 mls/hr Lactobacillus Rhamnosus (Culturelle 15b) 1 each PO DAILY [facility] Stop: 10/31/18 08:59 Last Admin: 09/01/18 10:25 Dose: Not Given Miscellaneous (Darbepoetin Pedro In Polysorbat [Aranesp]) 25 mcg IJ QMON [facility] Stop: 10/29/18 09:59 Miscellaneous (Probiotic Screen) 1 ea MC PRN PRN PRN Reason: PROTOCOL Stop: 10/30/18 17:14 Morphine Sulfate (Morphine) 1 mg IVP Q4H PRN PRN Reason: Pain (Moderate) Stop: 10/29/18 11:40 Morphine Sulfate (Morphine) 2 mg IVP Q4H PRN PRN Reason: Pain (Severe) Stop: 10/29/18 11:43 Last Admin: 09/01/18 09:00 Dose: 2 mg Nicotine (Nicotine Transdermal System) 21 mg TD DAILY [facility] Stop: 10/29/18 16:59 Last Admin: 09/01/18 09:00 Dose: 21 mg Ondansetron HCl (Zofran Odt) 4 mg PO Q6H PRN PRN Reason: Nausea / Vomiting Stop: 10/29/18 03:14 Last Admin: 08/30/18 03:31 Dose: 4 mg General: Alert, Oriented x3, No acute distress HEENT: PERRLA, EOMI Neck: Supple, +2 carotid pulse wo bruit Cardiovascular: Regular rate, Normal S1, Normal S2 Lungs: Clear to auscultation Abdomen: Soft Extremities: Pulses Psych/Mental Status: Mental status NL - Procedures Procedures: Procedures Procedure Code Date PERFORMANCE OF URINARY FILTRATION, <6 HRS/DAY [id number] 08/20/18 TRANSFUSE NONAUT RED BLOOD CELLS IN PERIPH VEIN, PERC 63645T6 08/20/18 Assessment/Plan - Assessment Assessment: esrd hemodialysis status TTS next dialysis in am pneumonia on IV antibiotics Diabetes Mellitus on insulin Hypertension Anemia of IRON deficiency and CKD - Plan Plan: Hemodialysis in am. as per orders. Benadryl for Itching.
--- NOTE | 2018-09-01 20:08 | Internal Medicine Prog Note ---
Internal Medicine Subjective - Subjective Service Date: 09/01/18 Patient seen and examined:: with staff Patient is:: awake, in bed, congested Patient Complaints of:: congestion, cough Per staff patient has:: no adverse event, no episodes of fall, tolerating meds Internal Medicine Objective - Results Result Diagrams: 09/01/18 05:00 09/01/18 08:45 Recent Labs: Laboratory Last Values WBC 5.2 Th/cmm (4.8-10.8) 09/01/18 05:00 RBC 2.65 Mil/cmm (4.30-5.70) L 09/01/18 05:00 Hgb 8.8 gm/dL (12-16) L 09/01/18 05:00 Hct 26.4 % (41.0-60) L 09/01/18 05:00 MCV 99.5 fl (80-99) H 09/01/18 05:00 MCH 33.1 pg (26.0-30.0) H 09/01/18 05:00 MCHC Differential 33.2 pg (28.0-36.0) 09/01/18 05:00 RDW 14.9 % (11.5-20.0) 09/01/18 05:00 Plt Count 255 Th/cmm (150-400) 09/01/18 05:00 MPV 7.9 fl 09/01/18 05:00 Neutrophils % 67.8 % (40.0-80.0) 09/01/18 05:00 Lymphocytes % 17.9 % (20.0-50.0) L 09/01/18 05:00 Monocytes % 9.8 % (2.0-10.0) 09/01/18 05:00 Eosinophils % 3.4 % (0.0-5.0) 09/01/18 05:00 Basophils % 1.1 % (0.0-2.0) 09/01/18 05:00 PT 10.8 SECONDS (9.5-11.5) 08/31/18 10:56 INR 1.04 (0.5-1.4) 08/31/18 10:56 Sodium 133 mEq/L (136-145) L 09/01/18 08:45 Potassium 5.2 mEq/L (3.5-5.1) H 09/01/18 08:45 Chloride 94 mEq/L (98-107) L 09/01/18 08:45 Carbon Dioxide 28.0 mEq/L (21.0-31.0) 09/01/18 08:45 Anion Gap 16.2 (7.0-16.0) H 09/01/18 08:45 BUN 67 mg/dL (7-25) H 09/01/18 08:45 Creatinine 7.0 mg/dL (0.7-1.3) H* 09/01/18 08:45 Est GFR ( Amer) 10.8 ml/min (>90) 09/01/18 08:45 Est GFR (Non-Af Amer) 8.9 ml/min 09/01/18 08:45 BUN/Creatinine Ratio 9.6 09/01/18 08:45 Glucose 102 mg/dL (70-105) 09/01/18 08:45 POC Glucose 77 MG/DL (70 - 105) 08/30/18 06:16 Calcium 9.7 mg/dL (8.6-10.3) 09/01/18 08:45 Total Bilirubin 0.4 mg/dL (0.3-1.0) 08/31/18 10:56 AST 10 U/L (13-39) L 08/31/18 10:56 ALT 6 U/L (7-52) L 08/31/18 10:56 Alkaline Phosphatase 72 U/L (34-104) 08/31/18 10:56 Total Protein 6.7 gm/dL (6.0-8.3) 08/31/18 10:56 Albumin 2.8 gm/dL (4.2-5.5) L 08/31/18 10:56 Globulin 3.9 gm/dL 08/31/18 10:56 Albumin/Globulin Ratio 0.7 (1.0-1.8) L 08/31/18 10:56 Urine Source CLEAN C 08/31/18 05:50 Urine Color YELLOW 08/31/18 05:50 Urine Clarity HAZY (CLEAR) 08/31/18 05:50 Urine pH 7.0 (4.6 - 8.0) 08/31/18 05:50 Ur Specific [place] 1.015 (1.005-1.030) 08/31/18 05:50 Urine Protein 100 mg/dL (NEGATIVE) H 08/31/18 05:50 Urine Glucose (UA) 100 mg/dL (NEGATIVE) H 08/31/18 05:50 Urine Ketones NEGATIVE mg/dL (NEGATIVE) 08/31/18 05:50 Urine Blood TRACE (NEGATIVE) 08/31/18 05:50 Urine Nitrate NEGATIVE (NEGATIVE) 08/31/18 05:50 Urine Bilirubin NEGATIVE (NEGATIVE) 08/31/18 05:50 Urine Urobilinogen 0.2 E.U./dL (0.2 - 1.0) 08/31/18 05:50 Ur Leukocyte Esterase MODERATE (NEGATIVE) H 08/31/18 05:50 Urine RBC 5-10 /hpf (0-5) H 08/31/18 05:50 Urine WBC 2-5 /hpf (0-5) 08/31/18 05:50 Ur Epithelial Cells NONE SEEN /lpf (FEW) 08/31/18 05:50 Urine Bacteria FEW /hpf (NONE SEEN) 08/31/18 05:50 - Physical Exam Vitals and I&O: Vital Signs Temp 98.4 F 09/01/18 16:00 Pulse 100 09/01/18 18:30 Resp 18 09/01/18 19:51 BP 140/86 09/01/18 16:00 Pulse Ox 100 09/01/18 16:00 Intake & Output 09/01/18 09/01/18 09/02/18 06:59 18:59 06:59 Intake Total 60 Balance 60 Weight (lbs) 61.734 kg 61.689 kg Intake: Oral 60 Other: # Voids 1 2 # Bowel Movements 0 1 Weight Source Bedscale Bedscale Active Medications: Current Medications Acetaminophen/Hydrocodone Bitart ([place] 5mg/325mg) 1 tab PO Q6H PRN PRN Reason: Pain (Moderate) Stop: 10/29/18 09:48 Last Admin: 08/31/18 10:43 Dose: 1 tab Aspirin (Ecotrin) 81 mg PO DAILY [facility] Stop: 10/30/18 08:59 Last Admin: 09/01/18 10:24 Dose: Not Given Atorvastatin Calcium (Lipitor) 10 mg PO [facility]; Protocol Stop: 10/29/18 20:59 Last Admin: 08/31/18 20:39 Dose: Not Given Cholecalciferol (Vitamin D3) 1,000 iu PO DAILY [facility] Stop: 10/30/18 08:59 Last Admin: 09/01/18 10:24 Dose: Not Given Clonazepam (Klonopin) 1 mg PO Q12HR [facility]; Protocol Stop: 10/29/18 20:59 Last Admin: 09/01/18 10:24 Dose: Not Given Diphenhydramine HCl (Benadryl) 50 mg PO TID PRN PRN Reason: Itching Stop: 10/29/18 09:47 Last Admin: 08/31/18 22:42 Dose: 50 mg Diphenhydramine HCl (Benadryl 50 Mg/Ml) 50 mg IVP Q6HR PRN PRN Reason: Itching Stop: 10/30/18 10:32 Last Admin: 09/01/18 18:54 Dose: 50 mg Docusate Sodium (Colace) 100 mg PO DAILY [facility] Stop: 10/30/18 08:59 Last Admin: 09/01/18 10:24 Dose: Not Given Folic Acid (Folate) 1 mg PO HS [facility] Stop: 10/29/18 20:59 Last Admin: 08/31/18 20:39 Dose: Not Given Hydralazine HCl (Apresoline) 100 mg PO TID [facility] Stop: 10/29/18 13:59 Last Admin: 09/01/18 14:59 Dose: 100 mg Ceftriaxone Sodium 1 gm/ (Sodium Chloride) 50 mls @ 100 mls/hr IV Q24H [facility] Stop: 10/29/18 11:59 Last Admin: 09/01/18 12:56 Dose: 100 mls/hr Azithromycin 250 mg/ Sodium (Chloride) 250 mls @ 250 mls/hr IV Q24H [facility] Stop: 10/29/18 12:59 Last Admin: 09/01/18 14:55 Dose: 250 mls/hr Lactobacillus Rhamnosus (Culturelle 15b) 1 each PO DAILY [facility] Stop: 10/31/18 08:59 Last Admin: 09/01/18 10:25 Dose: Not Given Miscellaneous (Darbepoetin Pedro In Polysorbat [Aranesp]) 25 mcg IJ QMON [facility] Stop: 10/29/18 09:59 Miscellaneous (Probiotic Screen) 1 ea MC PRN PRN PRN Reason: PROTOCOL Stop: 10/30/18 17:14 Morphine Sulfate (Morphine) 1 mg IVP Q4H PRN PRN Reason: Pain (Moderate) Stop: 10/29/18 11:40 Morphine Sulfate (Morphine) 2 mg IVP Q4H PRN PRN Reason: Pain (Severe) Stop: 10/29/18 11:43 Last Admin: 09/01/18 09:00 Dose: 2 mg Nicotine (Nicotine Transdermal System) 21 mg TD DAILY [facility] Stop: 10/29/18 16:59 Last Admin: 09/01/18 09:00 Dose: 21 mg Ondansetron HCl (Zofran Odt) 4 mg PO Q6H PRN PRN Reason: Nausea / Vomiting Stop: 10/29/18 03:14 Last Admin: 08/30/18 03:31 Dose: 4 mg Physical Exam: 48 y/o male patient has muscle weakness and was recently diagnosed with pneumonia. General: weak HEENT: NC/AT, PERRLA Neck: Supple Lungs: rales, ronchi Cardiovascular: without murmur Abdomen: soft, non-tender, non-distended, positive bowel sound Extremities: other (muscle weakness.) Neurological: no change - Procedures Procedures: Procedures Procedure Code Date PERFORMANCE OF URINARY FILTRATION, <6 HRS/DAY [id number] 08/20/18 TRANSFUSE NONAUT RED BLOOD CELLS IN PERIPH VEIN, PERC 26643B1 08/20/18 Internal Medicine Assmt/Plan - Assessment Assessment: Pneumonia. ESRD stage 5, On Hemodialysis. Diabetes Mellitus. Schizophrenia. CHF. Anemia of chronic disease. BPH. Old SC. Muscle weakness. AV shunt in right arm. - Plan Plan: Plan Continuation of care. Monitor Vitals and Labs. Continue present meds as directed. Monitor Diet/Nutritional support. Respiratory treatments and Pulmonary support. Supplemental Oxygen. Aspiration precaution. Deep suctioning prn. Monitor Diet/Nutritional support. Monitor mental status progression. Monitor behavioral health status. Pain Management. Safety precaution. Supportive care. Fall precaution, frequent nursing rounds, and as needed restraints to prevent fall. Continue present care management. Nutritional Asmnt/Malnutr-PDOC - Dietary Evaluation Malnutrition Findings (Please click <Entered> for more info): see orders.
[2018-09-01] MEDS: Atorvastatin Calcium 10 MG TAB PO SCH (20:12)
[2018-09-02] MEDS: Morphine Sulfate 2 mg/mL 1mL Syr IVP PRN (02:29)
[2018-09-02 07:06] LABS: ANION GAP 17.1 (7.0-16.0); CALCIUM SERUM 9.4 mg/dL (8.6-10.3); CARBON DIOXIDE 27.4 mEq/L (21.0-31.0); GFR AFRICAN-AMERICAN 8.9 ml/min (>90); GFR NON AFRICAN-AMERICAN 7.3 ml/min; POTASSIUM SERUM 5.5 mEq/L (3.5-5.1)
[2018-09-02 07:11] LABS: % BASOPHILS 1.1 % (0.0-2.0); % EOSINOPHILS 3.1 % (0.0-5.0); % LYMPHOCYTES 14.7 % (20.0-50.0); % MONOCYTES 10.5 % (2.0-10.0); % NEUTROPHILS 70.6 % (40.0-80.0); BASOPHILE ABSOLUTE 0.1 Th/cumm (0-0.2); EOSINOPHILE ABSOLUTE 0.2 Th/cmm (0.1-0.4); HEMOGLOBIN 8.8 gm/dL (12-16); LYMPHOCYTE ABSOLUTE 0.9 Th/cmm (1.5-3.0); MEAN CELL VOLUME 101.1 fl (80-99); MEAN CORPUSCULAR HGB CONC 33.7 pg (28.0-36.0); MEAN PLATELET VOLUME 7.9 fl; MONOCYTE ABSOLUTE 0.6 Th/cmm (0.3-1.0); PLATELET COUNT 268 Th/cmm (150-400); RED BLOOD COUNT 2.57 Mil/cmm (4.30-5.70); WHITE BLOOD COUNT 5.8 Th/cmm (4.8-10.8)
[2018-09-02 07:19] LABS: CREATININE - SERUM 8.3 mg/dL (0.7-1.3)
[2018-09-02] MEDS: Hydrocodone/APAP 5mg/325mg Tab PO PRN (07:55)
[2018-09-02] MEDS ORDERED: Epoetin Alfa 20000 Units/mL Vial IVP SCH (09:00)
[2018-09-02] MEDS: Lactobacillus Rhamnosus GG 15 Billion CFU CAP.SPRINK PO SCH (09:27)
[2018-09-02] MEDS: Nicotine 21 mg/24 hr Tdm TD SCH (09:27)
[2018-09-02] MEDS: NS 0.9% IV SCH (12:25)
[2018-09-02] MEDS: cefTRIAXone 1 GM in 0.9% NS 50 ML IV SCH (12:25)
[2018-09-02] MEDS: AZITHROMYCIN IV SCH (12:25)
[2018-09-02] MEDS ORDERED: Epoetin Alfa 20000 Units/mL Vial SUBQ SCH (13:10)
[2018-09-02] MEDS ORDERED: Amoxicillin/Clavulanate 500/125 Tab PO SCH (17:00)
[2018-09-03] MEDS ORDERED: Amoxicillin/Clavulanate 500/125 Tab PO SCH (09:00)
== END 2018-09-02 18:52 | DRG 177 ==
LOC: ER 22:59 → MSI 08-30 00:50
PROVIDERS: ADMIT Internal Medicine; ATTEND Internal Medicine
PROC: 5A1D70Z Performance of Urinary Filtration, Intermittent, Less than 6 Hours Per Day (ICD-10-PCS; principal; 2018-09-02)
DX: J69.0 Pneumonitis due to inhalation of food and vomit (principal); N18.6 End stage renal disease; I13.2 Hypertensive heart and chronic kidney disease with heart failure and with stage 5 chronic kidney disease, or end stage renal disease; E11.22 Type 2 diabetes mellitus with diabetic chronic kidney disease; D63.1 Anemia in chronic kidney disease; F20.9 Schizophrenia, unspecified; I25.2 Old myocardial infarction; N40.0 Benign prostatic hyperplasia without lower urinary tract symptoms; Z79.82 Long term (current) use of aspirin; Z99.2 Dependence on renal dialysis
CPT/HCPCS: 36415-UA; 71045-TC; 80048-TC; 80053-TC; 81001-TC; 82948-90; 85025-TC; 85610-TC; 90937; 94760; J0456; J0696; J0885; J1200; J2270; J7030; Q0162; Z7610